=== PATIENT | female | born 1970 | race Caucasian/White ===

== ENCOUNTER → 2018-02-22 | Outpatient (CLI) | payer MEDICAID ==
[~2018-02-22] MED LIST: ACHD5005 PO; CYCL10TA9 PO; HYDR1TAB PO
--- NOTE | 2018-02-22 18:29 | Diagnostic Imaging Report ---
INDICATION: Goiter. TECHNIQUE: Grayscale sonographic images of the thyroid gland. CORRELATION STUDY: None. FINDINGS: RIGHT LOBE: Enlarged at 5.3 x 2.6 x 2.1 cm. LEFT LOBE: Enlarged at 6.7 x 3.4 x 3.6 cm. There is a rather heterogeneous echotexture throughout both lobes of the thyroid gland. Definitive mass lesion not visualized but could go undetected owing to the marked heterogeneity. Perhaps slight increased vascularity is also demonstrated and may be slightly greater involving the left lobe compared to the right lobe. is enlarged and heterogeneous, as well. IMPRESSION: Abnormal appearance about the thyroid gland which is enlarged with rather heterogeneous echotexture. There is perhaps slight increased vascularity. Overall features could be reflective of underlying thyroiditis. Given the overall appearance, correlation with thyroid laboratory assessment and potentially nuclear medicine thyroid scan and uptake would be recommended. (Normal gland size: 4-5 x 2 x 2 cm) Dictated by: Dictated on workstation # [id number]
== END ==
LOC: RAD 10:18
PROVIDERS: ATTEND Nurse Practitioner Family
DX: E04.9 Nontoxic goiter, unspecified (principal)
CPT/HCPCS: 76536

== ENCOUNTER → 2018-09-29 | Outpatient (CLI) | payer MEDICAID ==
--- NOTE | 2018-09-29 21:27 | Diagnostic Imaging Report ---
INDICATION: Left breast lump. COMPARISON: No prior mammograms are available for comparison. EXAMINATION: A BB marker was placed at the area of palpable abnormality in the upper aspect of the left breast. Bilateral 2D and 3D diagnostic mammography was performed. FINDINGS: Both breasts are heterogeneously dense, limiting the sensitivity of mammography. There is a lobulated mass in the upper portion of the left breast at posterior depth near the midline. No microcalcifications are seen. Right breast is unremarkable. Axillae are unremarkable. IMPRESSION: Left breast mass at the area of palpable abnormality. Further evaluation with ultrasound is recommended. ACR BI-RADS Category 0: Incomplete. (Needs additional imaging evaluation). Result letter will be mailed to the patient. Note: At least 10% of breast cancer is not imaged by mammography. Dictated by: Dictated on workstation # [id number]
--- NOTE | 2018-09-29 21:37 | Diagnostic Imaging Report ---
INDICATION: Palpable lump in the left breast. COMPARISON: Correlation is made with diagnostic mammogram performed earlier today. EXAMINATION: Sonographic interrogation of the area of lump in the upper left breast was performed FINDINGS: The sonogram correlates to approximately the 11:30 location, 8 cm from the nipple. There is a macrolobulated hypoechoic solid-appearing mass at this location, measuring 1.4 x 1.0 x 1.5 cm. No significant internal vascularity is seen. No posterior acoustic shadowing or enhancement is detected. No pseudocapsule is identified. No other masses are identified. IMPRESSION: Lobulated hypoechoic solid mass at the 11:30 location of the left breast corresponding to the palpable and mammographic abnormality. While this could potentially represent a fibroadenoma, not all features are classic for a fibroadenoma. Breast neoplasm cannot be excluded. Tissue sampling is recommended. This would be amenable to ultrasound-guided core biopsy. ACR BI-RADS Category 4: Suspicious abnormality. Result letter will be mailed to the patient. Note: At least 10% of breast cancer is not imaged by mammography. Dictated by: Dictated on workstation # [id number]
== END ==
LOC: RAD 14:03
PROVIDERS: ATTEND Nurse Practitioner Primary Care
DX: N63.22 Unspecified lump in the left breast, upper inner quadrant (principal); N95.1 Menopausal and female climacteric states
CPT/HCPCS: 76642; 77066

== ENCOUNTER → 2018-10-10 | Outpatient (CLI) | payer MEDICAID ==
[~2018-10-10] VITALS: Ht 167.6 cm; Wt 63.5 kg
[~2018-10-10] MED LIST changes: +LIDOCAINE 1% INJ 20 ML 20 ML VIAL INJ ONE
--- NOTE | 2018-10-10 14:05 | Diagnostic Imaging Report ---
INDICATION: Left breast mass. Patient presents for ultrasound guided biopsy. PROCEDURE: Patient was brought to the procedure room and placed on the table in the supine position. Ultrasound imaging over the left breast was performed to evaluate appropriate entry site. Left breast was then prepped and draped in usual sterile fashion. Small amount of 1% lidocaine was utilized for local anesthesia. 14-gauge Achieve needle was advanced into the left breast and placed with the tip adjacent to the lobulated mass at 11:30 location, 8 cm from the nipple. Total of three core biopsies were obtained. Marker clip was then deployed. Hemostasis was obtained using manual compression. Patient tolerated the procedure well and was sent for post procedure mammogram in satisfactory condition. IMPRESSION: Successful ultrasound-guided left breast biopsy, as described. Pathology results are currently pending. Dictated by: Dictated on workstation # [id number]
--- NOTE | 2018-10-10 14:19 | Diagnostic Imaging Report ---
INDICATION: Left breast mass. Patient is status post ultrasound-guided core biopsy. TECHNIQUE/FINDINGS: 2D CC and ML mammography of the left breast was performed post ultrasound guided biopsy. A marker clip is located within the lobulated mass in the upper slightly inner left breast. IMPRESSION: The clip appears to be in a satisfactory location within the lobulated mass in the upper left breast. Dictated by: Dictated on workstation # [id number]
== END ==
LOC: RAD 10:14
PROVIDERS: ATTEND Nurse Practitioner Primary Care
DX: C50.912 Malignant neoplasm of unspecified site of left female breast (principal)
CPT/HCPCS: 19083; 88305; 88360

== ENCOUNTER → 2018-10-18 | Outpatient (CLI) | payer MEDICAID ==
[~2018-10-18] MED LIST changes: +BARIUM SUSPENSION 2.1% (VANILLA SILQ) 450 ML PO ONE; +CATHETER FLUSH 10 ML SYR IV PRN; +IOHEXOL 350 MG/ML 100 ML (OMNIPAQUE 350) VIAL IV ONE; -LIDOCAINE 1% INJ 20 ML 20 ML VIAL INJ ONE; +NS 100 ML (IVPB) BAG IV ONE; +RECEIVED CONTRAST (Hold Metformin) IV SCH
--- NOTE | 2018-10-18 16:22 | Diagnostic Imaging Report ---
PROCEDURE: CT chest with contrast, CT abdomen with and without contrast. TECHNIQUE: Precontrast acquisitions were acquired through the abdomen. Multiple contiguous axial images were obtained through the chest and abdomen after administration of intravenous contrast. INDICATION: Personal history of breast cancer; infiltrating ductal carcinoma of breast. FINDINGS: CT CHEST: There is asymmetric enlargement of the left lobe of the thyroid gland which may be due to goiter. There is an approximately 1.6 x 1.2 cm solid nodule in the medial left breast. This is compatible with breast neoplasm. Subcentimeter lymph nodes are seen in both axilla without significant asymmetry. There are calcifications within the right lung and hilum likely due to previous granulomatous exposure. No noncalcified pulmonary mass or thoracic adenopathy is identified. There is no significant pleural or pericardial fluid. IMPRESSION: 1.6 x 1.2 cm solid mass in the upper inner left breast is compatible with breast neoplasm. There is granulomatous residual in the thorax without evidence of metastatic adenopathy or lung mass. There is asymmetric enlargement of left thyroid gland which may be due to goiter. CT ABDOMEN: There is low-density in the liver indicating steatosis. Gallbladder surgically absent without evidence of biliary ductal dilatation. There is no evidence of pancreatic, adrenal glands or splenic abnormality and the kidneys are unremarkable. There are occasional mildly prominent central retroperitoneal lymph nodes with the largest on the left just above the aortic bifurcation measuring 0.8 cm long axis. IMPRESSION: Hepatic steatosis without acute abnormality or evidence of metastatic disease in the abdomen. Dictated by: Dictated on workstation # [id number]
== END ==
LOC: RAD 14:02
PROVIDERS: ATTEND Internal Medicine Hematology & Oncology
DX: C50.212 Malignant neoplasm of upper-inner quadrant of left female breast (principal); J98.4 Other disorders of lung; E04.9 Nontoxic goiter, unspecified; K76.0 Fatty (change of) liver, not elsewhere classified; Z90.49 Acquired absence of other specified parts of digestive tract
CPT/HCPCS: 71260; 74170

== ENCOUNTER → 2018-10-25 | Outpatient (CLI) | payer MEDICAID ==
[~2018-10-25] MED LIST changes: -ACHD5005 PO; -BARIUM SUSPENSION 2.1% (VANILLA SILQ) 450 ML PO ONE; -CYCL10TA9 PO; +HEParin (CENTRAL IV FLUSH) 500 UNIT/5 ML SYR ONE; -HYDR1TAB PO; -IOHEXOL 350 MG/ML 100 ML (OMNIPAQUE 350) VIAL IV ONE; -NS 100 ML (IVPB) BAG IV ONE; -RECEIVED CONTRAST (Hold Metformin) IV SCH
--- NOTE | 2018-10-25 15:29 | Diagnostic Imaging Report ---
INDICATION: Chemotherapy management. TECHNIQUE: The patient was administered 30.7 mCi of technetium 99M pertechnetate labeled to red blood cells and gated imaging over the chest was performed utilizing first-pass technique. The left ventricular ejection fraction was calculated to be 63%. IMPRESSION: Normal left ventricular ejection fraction of 63%. Dictated by: Dictated on workstation # [id number]
== END ==
LOC: CARD 13:45
PROVIDERS: ATTEND Internal Medicine Hematology & Oncology
DX: Z51.81 Encounter for therapeutic drug level monitoring (principal); C50.212 Malignant neoplasm of upper-inner quadrant of left female breast; Z79.899 Other long term (current) drug therapy
CPT/HCPCS: 78472

== ENCOUNTER 2018-11-03 14:39 | Outpatient (CLI) | payer MEDICAID ==
[~2018-11-03] VITALS: Ht 167.6 cm; Wt 63.5 kg
[~2018-11-03 14:39] MED LIST changes: +ACHD5005 PO; +ATEN25TA PO; -CATHETER FLUSH 10 ML SYR IV PRN; +CYCL10TA9 PO; -HEParin (CENTRAL IV FLUSH) 500 UNIT/5 ML SYR ONE; +HYDR1TAB PO; +METH5TAB5 PO
== END 2018-11-03 14:46 ==
LOC: PREOP 14:39
PROVIDERS: ATTEND Surgery
DX: Z01.818 Encounter for other preprocedural examination (principal)

== ENCOUNTER 2018-11-10 05:52 | Day surgery (SDC) | payer MEDICAID ==
[~2018-11-10] VITALS: Ht 167.6 cm; Wt 63.5 kg
--- OUTSIDE RECORDS SUMMARY | 2018-11-10 05:54 | XMS REPORT ---
Author Author TRAN NOGUEIRA [facility] Address [address] [place] [address] Care Team Providers Care Molder Labels Name Role Phone TRAN NOGUEIRA Unavailable PROBLEMS Type Condition ICD9-CM Code BJP73-BN Code Onset Dates Condition Status SNOMED Code Problem Thrombocytopenia D69.6 Active 290043026 Problem Goiter E04.9 Active 7847145 Problem Hyperthyroidism E05.90 Active 29372406 ALLERGIES No Information ENCOUNTERS Encounter Location Date Diagnosis [place] [address] [address] Jun, Thrombocytopenia D69.6 [facility] [address] [address] Jun, Thrombocytopenia D69.6 [facility] [address] [id number] May, Dental examination Z01.20 [facility] [address] [id number] Apr, Dental examination Z01.20 and Dental caries K02.9 [place] [address] [address] Mar, Thrombocytopenia D69.6 [facility] [address] [address] Mar, Hyperthyroidism E05.90 ; Goiter E04.9 ; Screening for diabetes mellitus Z13.1 and Screening for lipoid disorders Z13.220 [place] [address] [address] Feb, [place] [address] [address] Feb, [facility] [address] [address] Feb, 2018 Subacute maxillary sinusitis J01.00 ; Seasonal allergic rhinitis, unspecified trigger J30.2 ; Post-nasal drainage R09.82 and Goiter E04.9 [facility] [address] [place] [id number] [address] 2015 No diagnosis on [place] I V71.09 [facility] [address] [place] [id number] [place] [address] Dec, [place] [address] [place] [id number] [place] [address] Dec, [facility] [address] [place] [address] [id number] [place] [address] Sep, [place] [address] [place] [id number] [place] [address]- 4[address] Sep, [facility] [address] [place] [id number] [place] [address]- [address] Mar, [place] [address] [place] [id number] [place] [address]- 555[address] Mar, IMMUNIZATIONS No Known Immunizations SOCIAL HISTORY Never Assessed REASON FOR VISIT Deferred lab PLAN OF CARE VITAL SIGNS MEDICATIONS Unknown Medications RESULTS No Results PROCEDURES No Known procedures INSTRUCTIONS MEDICATIONS ADMINISTERED No Known Medications MEDICAL (GENERAL) HISTORY Type Description Date Medical History Left eye trauma-age 14 Surgical History gallbladder removal 1999 Surgical History metal plates/screws in left ankle 2014 Hospitalization History gallbladder removal 1999
--- OUTSIDE RECORDS SUMMARY | 2018-11-10 05:54 | XMS REPORT ---
Author Author NICOLEKYAW KING [facility] Address Unknown Care Team Providers Care Dip Brazier Name Role Phone KYAW VÁZQUEZ Unavailable PROBLEMS Type Condition ICD9-CM Code BWM40-DR Code Onset Dates Condition Status SNOMED Code Problem Hyperthyroidism E05.90 Active 16396741 Problem Thrombocytopenia D69.6 Active 693783932 Problem Goiter E04.9 Active 2445718 Problem Pain in joint, ankle and foot 719.47 Active 992195204 Problem Diarrhea 787.91 Active 98096382 Problem Scabies 133.0 Active 068374292 Problem Acute sinusitis, unspecified 461.9 Active 15268363 ALLERGIES No Information ENCOUNTERS Encounter Location Date Diagnosis [facility] [address] [place] [id number] [place] [id number] May, Dental examination Z01.20 [facility] [address] [id number] Apr, Dental examination Z01.20 and Dental caries K02.9 [facility] [address] [address] Mar, Thrombocytopenia D69.6 [facility] [address] [place] [id number] [place] [address] Mar, Hyperthyroidism E05.90 ; Goiter E04.9 ; Screening for diabetes mellitus Z13.1 and Screening for lipoid disorders Z13.220 [facility] [address] [address] Feb, [facility] [address] [address] Feb, [facility] [address] [address] Feb, Subacute maxillary sinusitis J01.00 ; Seasonal allergic rhinitis, unspecified trigger J30.2 ; Post-nasal drainage R09.82 and Goiter E04.9 [place] [address] [place] [id number] [place] [address] 2015 No diagnosis on [place] I V71.09 [place] [address] [place] [id number] [place] [address] 14 Dec, 2014 [place] [address] [place] [id number] [place] [address]- [address] Dec, [place] [address] [place] [id number] [place] [address]- [address] Sep, [place] [address] [place] [id number] [place] [address]- 1008 Sep, [place] [address] [place] [id number] [place] [address]- 9591 Mar, [place] [address] [place] [id number] [place] [address]- 29[address] Mar, IMMUNIZATIONS No Known Immunizations SOCIAL HISTORY Never Assessed REASON FOR VISIT [place] PLAN OF CARE VITAL SIGNS MEDICATIONS Unknown Medications RESULTS No Results PROCEDURES Procedure Date Ordered Result Body Site Billing Notes on claim May 31, 2018 INSTRUCTIONS MEDICATIONS ADMINISTERED No Known Medications MEDICAL (GENERAL) HISTORY Type Description Date Medical History Left eye trauma-age 14 Surgical History gallbladder removal 1999 Surgical History metal plates/screws in left ankle 2014 Hospitalization History gallbladder removal 1999
--- OUTSIDE RECORDS SUMMARY | 2018-11-10 05:54 | XMS REPORT ---
Author Author NICOLEKYAW KING [facility] Address Unknown Care Team Providers Care Medical Billing Clerk Name Role Phone KYAW VÁZQUEZ Unavailable PROBLEMS Type Condition ICD9-CM Code CJD35-AS Code Onset Dates Condition Status SNOMED Code Problem Hyperthyroidism E05.90 Active 34919376 Problem Thrombocytopenia D69.6 Active 196883322 Problem Goiter E04.9 Active 1526592 Problem Pain in joint, ankle and foot 719.47 Active 103867993 Problem Diarrhea 787.91 Active 25675790 Problem Scabies 133.0 Active 946408016 Problem Acute sinusitis, unspecified 461.9 Active 00666021 ALLERGIES No Known Allergies ENCOUNTERS Encounter Location Date Diagnosis [facility] [address] [place] [id number] [place] [id number] May, Dental examination Z01.20 [facility] [address] [id number] Apr, Dental examination Z01.20 and Dental caries K02.9 [facility] [place] [address] [place] [address] [id number] [place] [address] Mar, Thrombocytopenia D69.6 [facility] [place] [address] [place] [id number] [place] [address]- [address] Mar, Hyperthyroidism E05.90 ; Goiter E04.9 ; Screening for diabetes mellitus Z13.1 and Screening for lipoid disorders Z13.220 [facility] [place] [address] [address] Feb, [facility] [place] [address] [address] Feb, [facility] [place] [address] [address] Feb, Subacute maxillary sinusitis J01.00 ; Seasonal allergic rhinitis, unspecified trigger J30.2 ; Post-nasal drainage R09.82 and Goiter E04.9 [place] [address] [place] [address] [id number] [place] [address] 2015 No diagnosis on [place] I V71.09 [place] [address], [place] [address] 14 Dec, 2014 [place] [address] [place] [id number] [place] [address]- [address]651 Dec, [place] [address] [place] [id number] [place] [address]- 35[address] Sep, [place] [address] [place] [id number] [place] [address]- [address] Sep, [place] [address] [place] [id number] [place] [address] 16[address]- 1449 Mar, [place] [address] [place] [id number] [place] [address]- 2[address] Mar, IMMUNIZATIONS No Known Immunizations SOCIAL HISTORY Never Assessed REASON FOR VISIT SHERYL PLAN OF CARE Activity Details Follow Up prn Reason:asha/hygiene VITAL SIGNS Height 66 in 2018-05-06 Blood pressure systolic 124 mmHg 2018-05-06 Blood pressure diastolic 87 mmHg 2018-05-06 MEDICATIONS Medication Instructions Dosage Frequency Start Date End Date Duration Status Flonase 50 MCG/ACT Nasally twice a day 1 spray in each nostril 12h Feb, 07 days Not-Taking Zyrtec Allergy 10 mg Orally Once a day 1 capsule 24h 14 Feb, 2018 May, 30 day(s) Not-Taking RESULTS No Results PROCEDURES Procedure Date Ordered Result Body Site LTD ORAL EVALUATION - PROBLEM FOCUS May 06, 2018 INTRAORL-PERIAPICAL 1 FILM 02360 May 06, 2018 EXTRAC ERUPTED TOOTH/EXPOSED ROOT May 06, 2018 BITEWING - SINGLE FILM May 06, 2018 INSTRUCTIONS MEDICATIONS ADMINISTERED No Known Medications MEDICAL (GENERAL) HISTORY Type Description Date Medical History Left eye trauma-age 14 Surgical History gallbladder removal 1999 Surgical History metal plates/screws in left ankle 2014 Hospitalization History gallbladder removal 1999
--- OUTSIDE RECORDS SUMMARY | 2018-11-10 05:54 | XMS REPORT ---
Author Author TRAN NOGUEIRA [facility] Address [address] [place] [address] Care Team Providers Care Inclinometer Tester Name Role Phone TRAN NOGUEIRA Unavailable PROBLEMS Type Condition ICD9-CM Code SWO05-QA Code Onset Dates Condition Status SNOMED Code Problem Hyperthyroidism E05.90 Active 01848202 Problem Thrombocytopenia D69.6 Active 478540378 Problem Goiter E04.9 Active 0331621 Problem Pain in joint, ankle and foot 719.47 Active 194014910 Problem Diarrhea 787.91 Active 63122412 Problem Scabies 133.0 Active 391658158 Problem Acute sinusitis, unspecified 461.9 Active 27523127 ALLERGIES No Information ENCOUNTERS Encounter Location Date Diagnosis [facility] [address] [id number] May, [facility] [address] [id number] Apr, Dental examination Z01.20 and Dental caries K02.9 [place] [address] [address] Mar, Thrombocytopenia D69.6 [place] [address] [address]- [address] Mar, Hyperthyroidism E05.90 ; Goiter E04.9 ; Screening for diabetes mellitus Z13.1 and Screening for lipoid disorders Z13.220 [place] [address] [address]- [address] Feb, [place] [address] [address] Feb, [place] [address] [address] Feb, Subacute maxillary sinusitis J01.00 ; Seasonal allergic rhinitis, unspecified trigger J30.2 ; Post-nasal drainage R09.82 and Goiter E04.9 [place] [address] [place] [address]- [address] 2015 No diagnosis on [place] I V71.09 [place] [address] [place] [id number] [place] [address]- [address] Dec, [place] [address] [place] [id number] [place] [address] 82054- 2317 Dec, [place] [address] [place] [id number] [place] [address]- [address] Sep, [place] [address] [place] [id number] [place] [address]07- 5862 Sep, [place] [address] [place] [id number] [place] [address]83- 70[address] Mar, [place] [address] [place] [id number] [place] [address] 44765- 0079 Mar, IMMUNIZATIONS No Known Immunizations SOCIAL HISTORY Never Assessed REASON FOR VISIT lab order PLAN OF CARE VITAL SIGNS MEDICATIONS Unknown Medications RESULTS No Results PROCEDURES No Known procedures INSTRUCTIONS MEDICATIONS ADMINISTERED No Known Medications MEDICAL (GENERAL) HISTORY Type Description Date Medical History Left eye trauma-age 14 Surgical History gallbladder removal 1999 Surgical History metal plates/screws in left ankle 2014 Hospitalization History gallbladder removal 1999
--- OUTSIDE RECORDS SUMMARY | 2018-11-10 05:55 | XMS REPORT ---
Author Author TRAN NOGUEIRA [facility] Address [address] [place] [address] Care Team Providers Care Legal Job Titles Name Role Phone TRAN NOGUEIRA Unavailable PROBLEMS Type Condition ICD9-CM Code YNG84-DQ Code Onset Dates Condition Status SNOMED Code Problem Hyperthyroidism E05.90 Active 70790676 Problem Thrombocytopenia D69.6 Active 296737271 Problem Goiter E04.9 Active 0946033 Problem Pain in joint, ankle and foot 719.47 Active 823144337 Problem Diarrhea 787.91 Active 38038592 Problem Scabies 133.0 Active 499963948 Problem Acute sinusitis, unspecified 461.9 Active 39513140 ALLERGIES No Information ENCOUNTERS Encounter Location Date Diagnosis [place] [address] [place] [id number] [place] [address]- [address] Mar, Thrombocytopenia D69.6 [place] [address] [address] Mar, Hyperthyroidism E05.90 ; Goiter E04.9 ; Screening for diabetes mellitus Z13.1 and Screening for lipoid disorders Z13.220 [place] [address] [place] [id number] [place] [address]- [address] Feb, [place] [address] [address]- [address] Feb, [place] [address] [address]- [address] Feb, Subacute maxillary sinusitis J01.00 ; Seasonal allergic rhinitis, unspecified trigger J30.2 ; Post-nasal drainage R09.82 and Goiter E04.9 [place] [address] [address]- [address] Feb, No diagnosis on [place] I V71.09 [facility] [address] [address] Dec, [facility] [address] [address] Dec, [facility] [address] [address] Sep, [facility] [address] [address] Sep, [facility] [address] [place] [id number] [address] Mar, [facility] [address] [address] Mar, IMMUNIZATIONS No Known Immunizations SOCIAL HISTORY Never Assessed REASON FOR VISIT Returned call PLAN OF CARE VITAL SIGNS MEDICATIONS Unknown Medications RESULTS No Results PROCEDURES No Known procedures INSTRUCTIONS MEDICATIONS ADMINISTERED No Known Medications MEDICAL (GENERAL) HISTORY Type Description Date Medical History Left eye trauma-age 14 Surgical History gallbladder removal 1999 Hospitalization History gallbladder removal 1999
--- OUTSIDE RECORDS SUMMARY | 2018-11-10 05:55 | XMS REPORT | Continuity of Care Document ---
Author Author [facility] Address Unknown Phone Unavailable Allergies Active Description Code Type Severity Reaction Onset Reported/Identified Relationship to Patient Clinical Status Yes No Known Drug Allergies [id number] Drug Allergy Unknown N/A 03/09/2011 Yes No Known Allergies NKA Miscellaneous Allergy Unknown N/A 10/17/2013 Medications There is no data. Problems Date Dx Coded Attending Type Code Diagnosis Diagnosed By 03/17/2012 LÓPEZ NUNEZ DO 133.0 SCABIES 03/17/2012 LÓPEZ NUNEZ DO 719.47 PAIN IN JOINT INVOLVING ANKLE AND FOOT 09/13/2012 LÓPEZ NUNEZ DO 461.9 SINUSITIS ACUTE 09/13/2012 LÓPEZ NUNEZ DO 787.91 DIARRHEA 02/23/2018 DICK MUSA SPOOLING MACHINE OPERATOR Ot E04.9 NONTOXIC GOITER, UNSPECIFIED 03/14/2018 DICK MUSA Ot E04.9 NONTOXIC GOITER, UNSPECIFIED 09/29/2018 TRAN NOGUEIRA APRN Ot N63.22 UNSPECIFIED LUMP IN THE LEFT BREAST, UPP 09/29/2018 TRAN NOGUEIRA APRN Ot N95.1 MENOPAUSAL AND FEMALE CLIMACTERIC STATES 10/14/2018 TRAN NOGUEIRA APRN Ot N63.22 UNSPECIFIED LUMP IN THE LEFT BREAST, UPP 10/14/2018 TRAN NOGUEIRA APRN Ot N95.1 MENOPAUSAL AND FEMALE CLIMACTERIC STATES 10/14/2018 DICK MUSA SPOOLING MACHINE OPERATOR Ot E04.9 NONTOXIC GOITER, UNSPECIFIED 10/14/2018 TRAN NOGUEIRA APRN Ot N63.22 UNSPECIFIED LUMP IN THE LEFT BREAST, UPP 10/14/2018 TRAN NOGUEIRA APRN Ot N95.1 MENOPAUSAL AND FEMALE CLIMACTERIC STATES 10/18/2018 RUSTY BRANNON MD Ot 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 10/18/2018 RUSTY BRANNON MD Ot E04.9 NONTOXIC GOITER, UNSPECIFIED 10/18/2018 RUSTY BRANNON MD Ot J98.4 OTHER DISORDERS OF LUNG 10/18/2018 RUSTY BRANNON MD Ot K76.0 FATTY (CHANGE OF) LIVER, NOT ELSEWHERE C 10/18/2018 RUSTY BRANNON MD Ot Z90.49 ACQUIRED ABSENCE OF OTHER SPECIFIED PART 10/20/2018 TRAN NOGUEIRA APRN Ot C50.912 MALIGNANT NEOPLASM OF UNSPECIFIED SITE O 10/20/2018 MAURICIO RANKIN DO Ot Z01.818 ENCOUNTER FOR OTHER PREPROCEDURAL EXAMIN 10/26/2018 RUSTY BRANNON MD Ot 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 10/26/2018 RUSTY BRANNON MD Ot Z51.81 ENCOUNTER FOR THERAPEUTIC DRUG LEVEL MON 10/26/2018 RUSTY BRANNON MD Ot Z79.899 OTHER DATA MANAGEMENT (CURRENT) DRUG THERAPY 10/28/2018 TRAN NOGUEIRA APRN Ot C50.912 MALIGNANT NEOPLASM OF UNSPECIFIED SITE O 11/03/2018 RUSTY BRANNON MD Ot 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 Results Test Result Range TSH w/ FREE T4 - 02/17/18 12:28 TSH <0.01 mIU/L NRG T4, FREE 5.4 ng/dL 0.8-1.8 CBC - 03/14/18 08:44 WHITE BLOOD CELL COUNT 5.1 Thousand/uL 3.8-10.8 RED BLOOD CELL COUNT 4.65 Million/uL 3.80-5.10 HEMOGLOBIN 12.7 g/dL 11.7-15.5 HEMATOCRIT 39.0 % 35.0-45.0 MCV 83.9 fL 80.0-100.0 MCH 27.3 pg 27.0-33.0 MCHC 32.6 g/dL 32.0-36.0 RDW 12.8 % 11.0-15.0 PLATELET COUNT 118 Thousand/uL 140-400 MPV 12.4 fL 7.5-12.5 ABSOLUTE NEUTROPHILS 1856 cells/uL 7547-8464 ABSOLUTE LYMPHOCYTES 2545 cells/uL 850-3900 ABSOLUTE MONOCYTES 587 cells/uL 200-950 ABSOLUTE EOSINOPHILS 92 cells/uL 15-500 ABSOLUTE BASOPHILS 20 cells/uL 0-200 NEUTROPHILS 36.4 % NRG LYMPHOCYTES 49.9 % NRG MONOCYTES 11.5 % NRG EOSINOPHILS 1.8 % NRG BASOPHILS 0.4 % NRG CBC - 06/21/18 15:50 WHITE BLOOD CELL COUNT 5.9 Thousand/uL 3.8-10.8 RED BLOOD CELL COUNT 4.63 Million/uL 3.80-5.10 HEMOGLOBIN 12.9 g/dL 11.7-15.5 HEMATOCRIT 38.0 % 35.0-45.0 MCV 82.1 fL 80.0-100.0 MCH 27.9 pg 27.0-33.0 MCHC 33.9 g/dL 32.0-36.0 RDW 12.4 % 11.0-15.0 PLATELET COUNT 119 Thousand/uL 140-400 MPV 12.8 fL 7.5-12.5 ABSOLUTE NEUTROPHILS 2472 cells/uL 2811-8398 ABSOLUTE LYMPHOCYTES 2803 cells/uL 850-3900 ABSOLUTE MONOCYTES 537 cells/uL 200-950 ABSOLUTE EOSINOPHILS 71 cells/uL 15-500 ABSOLUTE BASOPHILS 18 cells/uL 0-200 NEUTROPHILS 41.9 % NRG LYMPHOCYTES 47.5 % NRG MONOCYTES 9.1 % NRG EOSINOPHILS 1.2 % NRG BASOPHILS 0.3 % NRG Encounters ACCT No. Visit Date/Time Discharge Status Pt. Type Provider Facility Loc./Unit Complaint [id number] 09/13/2012 11:04:00 09/13/2012 23:59:59 CLS Outpatient LÓPEZ NUNEZ DO [id number] 11/03/2018 14:39:00 11/03/2018 14:46:00 DIS Outpatient MAURICIO RANKIN DO [facility] PREOP PORT PLACEMENT RIGHT SIDE [id number] 10/25/2018 13:45:00 10/25/2018 23:59:59 CLS Outpatient RUSTY BRANNON MD [facility] CARD CHEMOTHERAPY MANAGEMENT [id number] 10/21/2018 08:30:00 10/21/2018 23:59:59 CLS Preadmit [facility] [id number] 10/18/2018 14:02:00 10/18/2018 23:59:59 CLS Outpatient RUSTY BRANNON MD [facility] RAD INFILTRATING DUCTAL CARCINOMA OF BREAST [id number] 10/14/2018 10:00:00 10/14/2018 23:59:59 CLS Outpatient RUSTY BRANNON MD [facility] ONC [id number] 10/10/2018 10:14:00 10/10/2018 23:59:59 CLS Outpatient TRAN NOGUEIRA APRN [facility] RAD LEFT BREAST LUMP [id number] 09/29/2018 14:03:00 09/29/2018 23:59:59 CLS Outpatient TRAN NOGUEIRA APRN [facility] RAD LEFT BREAST LUMP [id number] 02/22/2018 10:18:00 02/22/2018 23:59:59 CLS Outpatient DICK MUSA SPOOLING MACHINE OPERATOR [facility] RAD GOITER [id number] 10/19/2013 12:18:00 10/19/2013 16:55:00 DIS Outpatient Marvel GAXIOLA, [facility] [id number] 10/18/2013 13:00:00 10/18/2013 23:59:59 CLS Outpatient Katie Lowe PA-C [facility] MATEO.ORPaul [id number] 10/18/2013 14:23:00 10/18/2013 23:59:00 DIS Outpatient Marvel GAXIOLA, [facility] [id number] 10/17/2013 15:15:00 10/17/2013 17:27:00 DIS Emergency Atul GAXIOLA, Chema Quevedo [facility] ER.FASTTRA [id number] 11/07/2018 15:00:00 ACT Outpatient TRAN NOGUEIRA [facility] [place] [id number] 06/21/2018 15:40:00 Document Registration [id number] 03/14/2018 08:00:00 Document Registration [id number] 2018 11:40:00 Document Registration
--- OUTSIDE RECORDS SUMMARY | 2018-11-10 05:55 | XMS REPORT ---
Author Author TRAN NOGUEIRA [facility] Address [address] [place] [address] Care Team Providers Care Brim Presser Name Role Phone TRAN NOGUEIRA Unavailable PROBLEMS Type Condition ICD9-CM Code EQX11-IQ Code Onset Dates Condition Status SNOMED Code Problem Hyperthyroidism E05.90 Active 75854877 Problem Thrombocytopenia D69.6 Active 814485646 Problem Goiter E04.9 Active 0589675 Problem Pain in joint, ankle and foot 719.47 Active 552841281 Problem Diarrhea 787.91 Active 49580285 Problem Scabies 133.0 Active 785535587 Problem Acute sinusitis, unspecified 461.9 Active 75069647 ALLERGIES No Known Allergies ENCOUNTERS Encounter Location Date Diagnosis [facility] [address] [id number] May, [facility] [address] [id number] Apr, Dental examination Z01.20 and Dental caries K02.9 [place] [address] [address] Mar, Thrombocytopenia D69.6 [place] [id number] [address] Mar, Hyperthyroidism E05.90 ; Goiter E04.9 ; Screening for diabetes mellitus Z13.1 and Screening for lipoid disorders Z13.220 [place] [address] [address] Feb, [place] [address] [address] Feb, [facility] [address] [address] 14 Feb, 2018 Subacute maxillary sinusitis J01.00 ; Seasonal allergic rhinitis, unspecified trigger J30.2 ; Post-nasal drainage R09.82 and Goiter E04.9 [place] [address], [place] [address] 2015 No diagnosis on [place] I V71.09 [place] [address] [place] [id number] [place] [address] 14 Dec, 2014 [place] [address] [place] [id number] [place] [address] Dec, [place] [address] [place] [id number] [place] [address] Sep, [place] [address] [place] [id number] [place] [address] Sep, [place] [address] [place] [id number] [place] [address] Mar, [place] [address], [place] [address] Mar, IMMUNIZATIONS No Known Immunizations SOCIAL HISTORY Never Assessed REASON FOR VISIT Establish Care -- kandace romero PLAN OF CARE Activity Details Follow Up 1-2 mos Reason:WWE VITAL SIGNS Height 66 in 2018-03-14 Weight 130.0 lbs 2018-03-14 Temperature 98.1 degrees Fahrenheit 2018-03-14 Heart Rate 78 bpm 2018-03-14 Respiratory Rate 18 2018-03-14 BMI 20.98 kg/m2 2018-03-14 Blood pressure systolic 106 mmHg 2018-03-14 Blood pressure diastolic 68 mmHg 2018-03-14 MEDICATIONS Medication Instructions Dosage Frequency Start Date End Date Duration Status Flonase 50 MCG/ACT Nasally twice a day 1 spray in each nostril 12h Feb, 07 days Active Zyrtec Allergy 10 mg Orally Once a day 1 capsule 24h Feb, May, 30 day(s) Active RESULTS No Results PROCEDURES Procedure Date Ordered Result Body Site LAB NOT BILLED BY [facility] March 14, 2018 INSTRUCTIONS MEDICATIONS ADMINISTERED No Known Medications MEDICAL (GENERAL) HISTORY Type Description Date Medical History Left eye trauma-age 14 Surgical History gallbladder removal 1999 Surgical History metal plates/screws in left ankle 2014 Hospitalization History gallbladder removal 1999
--- OUTSIDE RECORDS SUMMARY | 2018-11-10 05:55 | XMS REPORT ---
Author Author TRAN NOGUEIRA [facility] Address [address] [place] [address] Care Team Providers Care Sap Abap Developer Name Role Phone TRAN NOGUEIRA Unavailable PROBLEMS Type Condition ICD9-CM Code [id number] Code Onset Dates Condition Status SNOMED Code Problem Hyperthyroidism E05.90 Active 29811733 Problem Thrombocytopenia D69.6 Active 782956507 Problem Goiter E04.9 Active 5248360 Problem Pain in joint, ankle and foot 719.47 Active 084984741 Problem Diarrhea 787.91 Active 69927354 Problem Scabies 133.0 Active 143885095 Problem Acute sinusitis, unspecified 461.9 Active 10557103 ALLERGIES No Information ENCOUNTERS Encounter Location Date Diagnosis [facility] [address] [place] [id number] [place] [id number] May, [place] [address] [address] Mar, Thrombocytopenia D69.6 [facility] [address] [place] [id number] [place] [address] Mar, Hyperthyroidism E05.90 ; Goiter E04.9 ; Screening for diabetes mellitus Z13.1 and Screening for lipoid disorders Z13.220 [facility] [address] [place] [id number] [place] [address] Feb, [place] [address] [address] Feb, [facility] [address] [address] Feb, Subacute maxillary sinusitis J01.00 ; Seasonal allergic rhinitis, unspecified trigger J30.2 ; Post-nasal drainage R09.82 and Goiter E04.9 [facility] [address] [place] [id number] [address] 2015 No diagnosis on [place] I V71.09 [facility] [address] [address] 14 Dec, 2014 [facility] [address] [address] Dec, [facility] [address] [address] Sep, [facility] [address] [address] Sep, [facility] [address] [address] Mar, [facility] [address] [address] Mar, IMMUNIZATIONS No Known Immunizations SOCIAL HISTORY Never Assessed REASON FOR VISIT Requests return call PLAN OF CARE VITAL SIGNS MEDICATIONS Unknown Medications RESULTS No Results PROCEDURES No Known procedures INSTRUCTIONS MEDICATIONS ADMINISTERED No Known Medications MEDICAL (GENERAL) HISTORY Type Description Date Medical History Left eye trauma-age 14 Surgical History gallbladder removal 1999 Hospitalization History gallbladder removal 1999
--- OUTSIDE RECORDS SUMMARY | 2018-11-10 05:55 | XMS REPORT ---
Author Author ANGELITA ELISE [facility] Address [address] [place] [address] Care Team Providers Care Watch Dial Stoner Name Role Phone ANGELITA ELISE Unavailable PROBLEMS Type Condition ICD9-CM Code YTA31-RI Code Onset Dates Condition Status SNOMED Code Problem Hyperthyroidism E05.90 Active 32823152 Problem Thrombocytopenia D69.6 Active 901844104 Problem Goiter E04.9 Active 8792830 Problem Pain in joint, ankle and foot 719.47 Active 595164914 Problem Diarrhea 787.91 Active 06220176 Problem Scabies 133.0 Active 350977404 Problem Acute sinusitis, unspecified 461.9 Active 98421903 ALLERGIES No Known Allergies ENCOUNTERS Encounter Location Date Diagnosis [place] [address] [place] [id number] [place] [address] Mar, Thrombocytopenia D69.[address] [address] Mar, Hyperthyroidism E05.90 ; Goiter E04.9 ; Screening for diabetes mellitus Z13.1 and Screening for lipoid disorders Z13.220 [place] [address] [place] [id number] [place] [address] Feb, [place] [address] [place] [id number] [place] [address] Feb, [place] [address] [address] Feb, Subacute maxillary sinusitis J01.00 ; Seasonal allergic rhinitis, unspecified trigger J30.2 ; Post-nasal drainage R09.82 and Goiter E04.9 [place] [address] [address] Feb, No diagnosis on [place] I V71.09 [facility] [address] [place] [id number] [address] Dec, [facility] [address] [place] [id number], [place] [address] Dec, [facility] [address], [place] [address] Sep, [facility] [address], [place] [address] Sep, [facility] [address] [facility] [id number] [address] Mar, [facility] [address], [place] [address] Mar, IMMUNIZATIONS No Known Immunizations SOCIAL HISTORY Never Assessed REASON FOR VISIT cough and runny X2 weeks-ORA Bull PLAN OF CARE Activity Details Follow Up tomorrow to establish care Reason: VITAL SIGNS Height 66 in 2018 Weight 128.8 lbs 2018 Temperature 98.1 degrees Fahrenheit 2018 Heart Rate 88 bpm 2018 Respiratory Rate 20 2018 BMI 20.79 kg/m2 2018 Blood pressure systolic 96 mmHg 2018 Blood pressure diastolic 52 mmHg 2018 MEDICATIONS Medication Instructions Dosage Frequency Start Date End Date Duration Status Zyrtec Allergy 10 mg Orally Once a day 1 capsule 24h Feb, May, 30 day(s) Active Phenergan 25 mg 1 tablet by Oral route every 6 hours Sep, Not-Taking Zithromax Z-Luis Enrique 250 MG Orally Once a day 2 tablets on the first day, then 1 tablet daily for 4 days 24h Feb, Feb, 5 day(s) Active Permethrin 5 % 1 Application by Topical route 1 time per dayapply from neck to toes. Avoid mucous membranes. Shower off in 10 hours Mar, Not-Taking Flonase 50 MCG/ACT Nasally twice a day 1 spray in each nostril 12h Feb, 07 days Active Zithromax Z-Luis Enrique 250 mg 2 tablet by Oral route 1 time per dayon day 1 then take 1 tab daily on days 2-5 Sep, Not-Taking RESULTS No Results PROCEDURES Procedure Date Ordered Result [facility]* 2018 INSTRUCTIONS MEDICATIONS ADMINISTERED No Known Medications MEDICAL (GENERAL) HISTORY Type Description Date Medical History Left eye trauma-age 14 Surgical History gallbladder removal 1999 Hospitalization History gallbladder removal 1999
[2018-11-10] MEDS ORDERED: ceFAZolin 2 GM IV Premixed 50 ML ONE (06:40)
--- NOTE | 2018-11-10 06:45 | Progress Note-Pre Operative ---
Pre-Operative Progress Note H&P Reviewed The H&P was reviewed, patient examined and no changes noted. Date Seen by Provider: Nov 10, 2018 Time Seen by Provider: 06:45 Date H&P Reviewed: Nov 10, 2018 Time H&P Reviewed: 06:45 Pre-Operative Diagnosis: breast cancer MAURICOI RANKIN DO Nov 10, 2018 06:45
[2018-11-10] MEDS ORDERED: LACTATED RINGERS 1,000 ML IV PRN (06:51)
[2018-11-10 06:53] VITALS: BP 117/83
[2018-11-10] MEDS ORDERED: ceFAZolin 2 GM IV Premixed 50 ML IV ONE (07:00)
[2018-11-10] MEDS ORDERED: proPOfol 200 MG/20 ML (DIPRIVAN) VIAL IV ONE (08:30)
[2018-11-10] MEDS ORDERED: LIDOCAINE PF 2% 5 ML (XYLOCAINE) VIAL ONE (08:30)
[2018-11-10] MEDS ORDERED: fentaNYL INJECTION 100 MCG/2 ML AMP ONE (08:30)
[2018-11-10] MEDS ORDERED: MIDAZOLAM 2 MG/2 ML (VERSED) VIAL ONE ×2 (08:31→09:11)
[2018-11-10] MEDS ORDERED: BUP/EPI 0.5% 1:200,000 (SENSORCAINE) 30 ML VIAL ONE (08:57)
[2018-11-10] MEDS ORDERED: 0.9% SODIUM CHLORIDE PF INJ 20 ML VIAL ONE (08:57)
[2018-11-10] MEDS ORDERED: HEParin (CENTRAL IV FLUSH) 500 UNIT/5 ML SYR ONE (08:57)
[2018-11-10] MEDS ORDERED: LIDOCAINE 1% INJ 20 ML 20 ML VIAL ONE (08:58)
[2018-11-10] MEDS ORDERED: ONDANSETRON 4 MG/2 ML (SDV) Z0FRAN ONE (09:28)
--- NOTE | 2018-11-10 09:58 | Progress Note-Post Operative ---
Post-Operative Progess Note Surgeon (s)/Wound/Ostomy Nurse (s) Surgeon MAURICIO RANKIN DO Wound/Ostomy Nurse: na Pre-Operative Diagnosis breast cancer Post-Operative Diagnosis same Procedure & Operative Findings Date of Procedure 11/10/18 Procedure Performed/Findings u/s guided right ij port placement Anesthesia Type mac c local Estimated Blood Loss Estimated blood loss (mL): min Specimens/Packing Specimens Removed na MAURICIO RANKIN DO Nov 10, 2018 09:58
[2018-11-10] MEDS ORDERED: ACHD5005 PO (09:59)
--- NOTE | 2018-11-10 10:02 | Discharge Inst-Simple/Standard ---
Discharge Inst-Standard Discharge Medications New, Converted or Re-Newed RX: RX on Chart Patient Instructions/Follow Up Plan of Care/Instructions/FU: [address] ice bag over incision on 15 min off 30 min and repeat for discomfort and to reduce swelling. Activity as Tolerated: No Discharge Diet: Regular Diet Other Inst to Patient Follow up Appt: Make appointment for 2 week. Instructions: No lifting greater than 10 pounds. No strenuous activity. May shower in 24 hours, no tub bath or soaking. Use incentive spirometer at home as directed. No Smoking Skin/Wound Care: May remove bandages in 24 hours. You have special glue over incisions it will fall off on its own. Symptoms to Report: Appetite Changes, Extremity Discoloration, Numbness/Tingling, Swelling Increased , Bleeding Excessive, Eyesight Changes, Pain Increased, Urine Color Change, Constipation(Persistent), Fever over 101 degree F, Pain/Pressure in chest, Urinating Difficulty, Cough Up/Vomit Blood, Heart Beat Irreg/Pounding, Pain/ Pressure in jaw, Vaginal Bleeding Increase, Cramps in feet or legs, Lightheadedness, Pain/Pressure in shoulder, Diarrhea(Persistent), Memory Changes Suddenly, Questions/Concerns, Weight gain consecutive days, Dizziness/ Fainting, Nausea/Vomiting, Shortness of Breath, Weight gain over 2 pounds If questions or concerns contact your physician Or seek help at emergency department. MAURICIO RANKIN DO Nov 10, 2018 10:02
[2018-11-10] MEDS ORDERED: morphine INJ 10 MG/ML 1ML (SYR OR VIAL) IVP ONE (10:15)
[2018-11-10] MEDS ORDERED: MEPERIDINE (DEMEROL) INJ 50 MG/ML IVP ONE (10:15)
[2018-11-10] MEDS ORDERED: ONDANSETRON 4 MG/2 ML (SDV) Z0FRAN IVP PRN (10:15)
[2018-11-10 10:25] VITALS: BP 111/80
--- NOTE | 2018-11-10 10:37 | Diagnostic Imaging Report ---
INDICATION: Postoperative Groshong placement. History of breast cancer. TECHNIQUE: Single view chest 10:10 AM. CORRELATION STUDY: None FINDINGS: Right IJ ohdxlu-z-kdhs catheter is present tip projected over the right paramediastinal region likely over the SVC. Heart size, mediastinum and vasculature overall within normal limits. Lung lundberg demonstrate mildly prominent interstitial markings but overall generally clear without evidence for infiltrate, effusion or pneumothorax. IMPRESSION: 1. Right IJ Obhlax-o-Lhtf catheter is present. No evidence for post line placement complication. Dictated by: Dictated on workstation # [id number]
[2018-11-10 10:55] VITALS: BP 135/70
--- NOTE | 2018-11-10 10:56 | Diagnostic Imaging Report ---
INDICATION: Fluoroscopy for right chest wall catheter placement. FINDINGS: Fluoroscopy was provided for Dr. Gonzalez during a right Groshong catheter placement. 36 seconds of fluoroscopy was utilized. Images demonstrate a right chest wall catheter with tip overlying the SVC right atrial junction. IMPRESSION: Fluoroscopy during right Groshong catheter placement. Dictated by: Dictated on workstation # [id number]
[2018-11-10 11:25] VITALS: BP 121/78
[2018-11-10 11:35] VITALS: BP 121/78
--- NOTE | 2018-11-10 12:57 | Anesthesia-General Post-Op ---
MAC Patient Condition Mental Status/LOC: Same as Preop Cardiovascular: Satisfactory Nausea/Vomiting: Absent Respiratory: Satisfactory Pain: Controlled Complications: Absent Post Op Complications Complications None Follow Up Care/Instructions Patient Instructions None needed. Anesthesiology Discharge Order Discharge Order Patient is doing well, no complaints, stable vital signs, no apparent adverse anesthesia problems. No complications reported per nursing. BERTA GRACE CRNA Nov 10, 2018 12:56
--- NOTE | 2018-11-11 02:53 | OPERATIVE REPORT ---
DATE OF SERVICE: 11/10/2018 PREOPERATIVE DIAGNOSIS: Breast cancer. POSTOPERATIVE DIAGNOSIS: Breast cancer. PROCEDURE: Right internal jugular vein ultrasound-guided port placement. SURGEON: Mauricio Gonzalez DO ANESTHESIA: MAC with local. ESTIMATED BLOOD LOSS: Minimal. COMPLICATIONS: None. INDICATIONS: The patient is a 48-year-old female with breast cancer. She understands risks and benefits of procedure and wished to proceed with procedure. Consent was signed on the chart. DESCRIPTION OF PROCEDURE: The patient was taken to the operating suite. She was prepped and draped in sterile fashion. Timeout was performed. Ultrasound was used to locate the right internal jugular vein. The local anesthetic was then infiltrated into the right neck area. Under direct visualization of the laparoscope, the right internal jugular vein was attempted to be accessed; however, the right carotid was accessed with a micro access needle. The micro access wire was inserted and fluoroscopy demonstrated this to be in the artery. The wire and the needle were removed. Pressure was held. Again, the ultrasound was then utilized the right internal jugular vein was accessed and dark nonpulsatile blood was withdrawn. The micro access wire was inserted through the needle and fluoroscopy demonstrated the wire to be in the proper placement. An 11 blade scalpel was used to make a small stab incision at the insertion point. The dilator was then advanced over the wire and the wire and dilator were removed. The regular guidewire was then inserted through the sheath and the sheath was then removed. Fluoroscopy assured proper placement. The wire was then secured. Local anesthetic was infiltrated onto the right neck and onto the right chest for a pocket creation and tunneling. A 15 blade scalpel was used to make a skin incision on the right chest and cautery dissection was used and taken down to the pectoral fascia bluntly a pocket was created. Dilator sheath was then advanced over the guidewire and the wire was removed. This was all done under fluoroscopy. The dilator was removed and the Groshong catheter was inserted through the sheath and then the sheath was removed. The catheter was then tunneled from the insertion point down to the pocket that was created. Fluoroscopy was used to cut the catheter length and then was secured to the port in the usual fashion. The port was then placed within the pocket and then accessed without difficulty. It was then flushed with saline and then with heparin without difficulty. Fluoroscopy assured proper placement. The subcutaneous tissue was then reapproximated using 3-0 Vicryl. Skin was then closed using Skin Affix, both of the incision and the neck insertion site. The patient tolerated the procedure well without any complications. She was taken to the recovery room in stable condition. Chest x-ray pending. Job ID: [id number] DocumentID: [id number] Dictated Date: 11/10/2018 16:46:19 Aircraft Instrument Tester Date: 11/11/2018 02:52:26 Dictated By: MAURICIO GONZALEZ DO
== END 2018-11-10 11:35 | disposition home or self-care (01) ==
LOC: SDC 05:52
PROVIDERS: ATTEND Surgery
DX: C50.912 Malignant neoplasm of unspecified site of left female breast (principal); Z11.2 Encounter for screening for other bacterial diseases; I10 Essential (primary) hypertension; F17.210 Nicotine dependence, cigarettes, uncomplicated; Z79.899 Other long term (current) drug therapy
CPT/HCPCS: 71045; 84703; 87081

== ENCOUNTER 2019-01-10 08:54 | Outpatient (RCR) | payer MEDICAID ==
[2018-10-14 11:21] LABS: BASOPHILS % (AUTO) 0 % (0-10); EOSINOPHILS # (AUTO) 0.1 10^3/uL (0.0-0.3); EOSINOPHILS % (AUTO) 1 % (0-10); HEMATOCRIT 43 % (35-52); HEMOGLOBIN 14.4 G/DL (11.5-16.0); LYMPHOCYTES # (AUTO) 1.9 X 10^3 (1.0-4.0); LYMPHOCYTES % (AUTO) 20 % (12-44); MEAN CORPUSCULAR HEMOGLOBIN 27 PG (25-34); MEAN CORPUSCULAR HGB CONC 34 G/DL (32-36); MEAN CORPUSCULAR VOLUME 79 FL (80-99); MEAN PLATELET VOLUME 12.7 FL (7.4-10.4); MONOCYTES % (AUTO) 10 % (0-12); NEUTROPHILS # (AUTO) 6.8 X 10^3 (1.8-7.8); NEUTROPHILS % (AUTO) 69 % (42-75); PLATELET COUNT 135 10^3/uL (130-400); RED CELL DISTRIBUTION WIDTH 13.5 % (10.0-14.5); WHITE BLOOD COUNT 9.8 10^3/uL (4.3-11.0)
[2018-10-14 11:39] LABS: ALANINE AMINOTRANSFERASE 16 U/L (0-55); ALBUMIN 3.7 GM/DL (3.2-4.5); ALKALINE PHOSPHATASE 166 U/L (40-136); BILIRUBIN,TOTAL 0.5 MG/DL (0.1-1.0); BUN/CREATININE RATIO 25; CALCIUM 9.4 MG/DL (8.5-10.1); CARBON DIOXIDE 20 MMOL/L (21-32); CHLORIDE 109 MMOL/L (98-107); CREATININE SERUM 0.52 MG/DL (0.60-1.30); GFR ESTIMATED > 60; GLUCOSE 133 MG/DL (70-105); POTASSIUM 4.2 MMOL/L (3.6-5.0); SODIUM 137 MMOL/L (135-145); TOTAL PROTEIN 7.2 GM/DL (6.4-8.2)
[2018-11-15 11:10] LABS: BASOPHILS % (AUTO) 0 % (0-10); EOSINOPHILS % (AUTO) 0 % (0-10); HEMATOCRIT 38 % (35-52); HEMOGLOBIN 12.9 G/DL (11.5-16.0); LYMPHOCYTES # (AUTO) 0.9 X 10^3 (1.0-4.0); LYMPHOCYTES % (AUTO) 10 % (12-44); MEAN CORPUSCULAR HEMOGLOBIN 27 PG (25-34); MEAN CORPUSCULAR HGB CONC 34 G/DL (32-36); MEAN CORPUSCULAR VOLUME 79 FL (80-99); MEAN PLATELET VOLUME 12.2 FL (7.4-10.4); MONOCYTES # (AUTO) 0.5 X 10^3 (0.0-1.0); MONOCYTES % (AUTO) 6 % (0-12); NEUTROPHILS # (AUTO) 7.6 X 10^3 (1.8-7.8); NEUTROPHILS % (AUTO) 85 % (42-75); PLATELET COUNT 151 10^3/uL (130-400); RED CELL DISTRIBUTION WIDTH 13.5 % (10.0-14.5)
[2018-11-15 11:33] LABS: ALANINE AMINOTRANSFERASE 23 U/L (0-55); ALBUMIN 3.7 GM/DL (3.2-4.5); ALKALINE PHOSPHATASE 143 U/L (40-136); BILIRUBIN,TOTAL 0.3 MG/DL (0.1-1.0); BUN/CREATININE RATIO 25; CALCIUM 9.3 MG/DL (8.5-10.1); CARBON DIOXIDE 19 MMOL/L (21-32); CHLORIDE 107 MMOL/L (98-107); CREATININE SERUM 0.61 MG/DL (0.60-1.30); GFR ESTIMATED > 60; GLUCOSE 234 MG/DL (70-105); POTASSIUM 3.7 MMOL/L (3.6-5.0); SODIUM 136 MMOL/L (135-145)
[2018-11-22 09:48] LABS: BASOPHILS % (AUTO) 1 % (0-10); EOSINOPHILS % (AUTO) 0 % (0-10); HEMATOCRIT 38 % (35-52); HEMOGLOBIN 13.2 G/DL (11.5-16.0); LYMPHOCYTES # (AUTO) 1.5 X 10^3 (1.0-4.0); LYMPHOCYTES % (AUTO) 78 % (12-44); MEAN CORPUSCULAR HEMOGLOBIN 27 PG (25-34); MEAN CORPUSCULAR HGB CONC 35 G/DL (32-36); MEAN CORPUSCULAR VOLUME 79 FL (80-99); MEAN PLATELET VOLUME 11.1 FL (7.4-10.4); MONOCYTES # (AUTO) 0.2 X 10^3 (0.0-1.0); MONOCYTES % (AUTO) 9 % (0-12); NEUTROPHILS # (AUTO) 0.2 X 10^3 (1.8-7.8); NEUTROPHILS % (AUTO) 12 % (42-75); PLATELET COUNT 98 10^3/uL (130-400); RED CELL DISTRIBUTION WIDTH 12.6 % (10.0-14.5); WHITE BLOOD COUNT 1.9 10^3/uL (4.3-11.0)
[2018-11-22 10:09] LABS: BUN/CREATININE RATIO 20; CALCIUM 8.8 MG/DL (8.5-10.1); CARBON DIOXIDE 25 MMOL/L (21-32); CHLORIDE 103 MMOL/L (98-107); CREATININE SERUM 0.55 MG/DL (0.60-1.30); GFR ESTIMATED > 60; GLUCOSE 120 MG/DL (70-105); POTASSIUM 3.5 MMOL/L (3.6-5.0); SODIUM 133 MMOL/L (135-145)
[2018-11-29 10:01] LABS: BASOPHILS % (AUTO) 0 % (0-10); EOSINOPHILS % (AUTO) 0 % (0-10); HEMATOCRIT 34 % (35-52); HEMOGLOBIN 11.5 G/DL (11.5-16.0); LYMPHOCYTES # (AUTO) 2.1 X 10^3 (1.0-4.0); LYMPHOCYTES % (AUTO) 43 % (12-44); MEAN CORPUSCULAR HEMOGLOBIN 27 PG (25-34); MEAN CORPUSCULAR HGB CONC 34 G/DL (32-36); MEAN CORPUSCULAR VOLUME 80 FL (80-99); MEAN PLATELET VOLUME 10.2 FL (7.4-10.4); MONOCYTES # (AUTO) 0.6 X 10^3 (0.0-1.0); MONOCYTES % (AUTO) 12 % (0-12); NEUTROPHILS # (AUTO) 2.2 X 10^3 (1.8-7.8); NEUTROPHILS % (AUTO) 45 % (42-75); PLATELET COUNT 176 10^3/uL (130-400); RED CELL DISTRIBUTION WIDTH 13.4 % (10.0-14.5); WHITE BLOOD COUNT 4.8 10^3/uL (4.3-11.0)
[2018-11-29 10:15] LABS: BUN/CREATININE RATIO 21; CALCIUM 8.7 MG/DL (8.5-10.1); CARBON DIOXIDE 27 MMOL/L (21-32); CHLORIDE 108 MMOL/L (98-107); CREATININE SERUM 0.56 MG/DL (0.60-1.30); GFR ESTIMATED > 60; GLUCOSE 106 MG/DL (70-105); POTASSIUM 2.9 MMOL/L (3.6-5.0); SODIUM 142 MMOL/L (135-145)
[2018-12-06 10:10] LABS: BASOPHILS % (AUTO) 0 % (0-10); EOSINOPHILS % (AUTO) 0 % (0-10); HEMATOCRIT 37 % (35-52); HEMOGLOBIN 12.1 G/DL (11.5-16.0); LYMPHOCYTES % (AUTO) 10 % (12-44); MEAN CORPUSCULAR HEMOGLOBIN 27 PG (25-34); MEAN CORPUSCULAR HGB CONC 33 G/DL (32-36); MEAN CORPUSCULAR VOLUME 81 FL (80-99); MEAN PLATELET VOLUME 11.3 FL (7.4-10.4); MONOCYTES # (AUTO) 0.3 X 10^3 (0.0-1.0); MONOCYTES % (AUTO) 4 % (0-12); NEUTROPHILS # (AUTO) 8.5 X 10^3 (1.8-7.8); NEUTROPHILS % (AUTO) 87 % (42-75); PLATELET COUNT 183 10^3/uL (130-400); RED CELL DISTRIBUTION WIDTH 14.2 % (10.0-14.5); WHITE BLOOD COUNT 9.8 10^3/uL (4.3-11.0)
[2018-12-06 10:32] LABS: ALANINE AMINOTRANSFERASE 19 U/L (0-55); ALBUMIN 3.8 GM/DL (3.2-4.5); ALKALINE PHOSPHATASE 141 U/L (40-136); BILIRUBIN,TOTAL 0.2 MG/DL (0.1-1.0); BUN/CREATININE RATIO 17; CALCIUM 9.9 MG/DL (8.5-10.1); CARBON DIOXIDE 21 MMOL/L (21-32); CHLORIDE 106 MMOL/L (98-107); CREATININE SERUM 0.65 MG/DL (0.60-1.30); GFR ESTIMATED > 60; GLUCOSE 184 MG/DL (70-105); POTASSIUM 4.4 MMOL/L (3.6-5.0); SODIUM 139 MMOL/L (135-145); TOTAL PROTEIN 6.6 GM/DL (6.4-8.2)
[2018-12-13 09:02] LABS: BASOPHILS # (AUTO) 0.1 10^3/uL (0.0-0.1); BASOPHILS % (AUTO) 2 % (0-10); EOSINOPHILS % (AUTO) 0 % (0-10); HEMATOCRIT 41 % (35-52); LYMPHOCYTES # (AUTO) 2.1 X 10^3 (1.0-4.0); LYMPHOCYTES % (AUTO) 74 % (12-44); MEAN CORPUSCULAR HEMOGLOBIN 27 PG (25-34); MEAN CORPUSCULAR HGB CONC 34 G/DL (32-36); MEAN CORPUSCULAR VOLUME 79 FL (80-99); MEAN PLATELET VOLUME 12.3 FL (7.4-10.4); MONOCYTES # (AUTO) 0.2 X 10^3 (0.0-1.0); MONOCYTES % (AUTO) 6 % (0-12); NEUTROPHILS # (AUTO) 0.5 X 10^3 (1.8-7.8); NEUTROPHILS % (AUTO) 19 % (42-75); PLATELET COUNT 133 10^3/uL (130-400); RED CELL DISTRIBUTION WIDTH 14.2 % (10.0-14.5); WHITE BLOOD COUNT 2.9 10^3/uL (4.3-11.0)
[2018-12-13 09:17] LABS: BUN/CREATININE RATIO 15; CALCIUM 8.9 MG/DL (8.5-10.1); CARBON DIOXIDE 25 MMOL/L (21-32); CHLORIDE 102 MMOL/L (98-107); CREATININE SERUM 0.61 MG/DL (0.60-1.30); GFR ESTIMATED > 60; GLUCOSE 91 MG/DL (70-105); POTASSIUM 3.2 MMOL/L (3.6-5.0); SODIUM 137 MMOL/L (135-145)
[2018-12-20 08:36] LABS: BASOPHILS % (AUTO) 0 % (0-10); EOSINOPHILS % (AUTO) 0 % (0-10); HEMATOCRIT 37 % (35-52); HEMOGLOBIN 12.3 G/DL (11.5-16.0); LYMPHOCYTES # (AUTO) 1.8 X 10^3 (1.0-4.0); LYMPHOCYTES % (AUTO) 58 % (12-44); MEAN CORPUSCULAR HEMOGLOBIN 27 PG (25-34); MEAN CORPUSCULAR HGB CONC 34 G/DL (32-36); MEAN CORPUSCULAR VOLUME 80 FL (80-99); MEAN PLATELET VOLUME 11.7 FL (7.4-10.4); MONOCYTES # (AUTO) 0.5 X 10^3 (0.0-1.0); MONOCYTES % (AUTO) 16 % (0-12); NEUTROPHILS # (AUTO) 0.8 X 10^3 (1.8-7.8); NEUTROPHILS % (AUTO) 26 % (42-75); PLATELET COUNT 125 10^3/uL (130-400); RED CELL DISTRIBUTION WIDTH 14.5 % (10.0-14.5); WHITE BLOOD COUNT 3.1 10^3/uL (4.3-11.0)
[2018-12-20 08:56] LABS: BUN/CREATININE RATIO 13; CALCIUM 9.4 MG/DL (8.5-10.1); CARBON DIOXIDE 27 MMOL/L (21-32); CHLORIDE 105 MMOL/L (98-107); CREATININE SERUM 0.64 MG/DL (0.60-1.30); GFR ESTIMATED > 60; GLUCOSE 115 MG/DL (70-105); POTASSIUM 2.8 MMOL/L (3.6-5.0); SODIUM 140 MMOL/L (135-145)
[2018-12-27 09:04] LABS: BASOPHILS % (AUTO) 0 % (0-10); EOSINOPHILS % (AUTO) 0 % (0-10); HEMATOCRIT 35 % (35-52); HEMOGLOBIN 11.4 G/DL (11.5-16.0); LYMPHOCYTES # (AUTO) 0.9 X 10^3 (1.0-4.0); LYMPHOCYTES % (AUTO) 18 % (12-44); MEAN CORPUSCULAR HEMOGLOBIN 27 PG (25-34); MEAN CORPUSCULAR HGB CONC 33 G/DL (32-36); MEAN CORPUSCULAR VOLUME 83 FL (80-99); MEAN PLATELET VOLUME 11.5 FL (7.4-10.4); MONOCYTES # (AUTO) 0.1 X 10^3 (0.0-1.0); MONOCYTES % (AUTO) 3 % (0-12); NEUTROPHILS # (AUTO) 4.1 X 10^3 (1.8-7.8); NEUTROPHILS % (AUTO) 80 % (42-75); PLATELET COUNT 139 10^3/uL (130-400); RED CELL DISTRIBUTION WIDTH 14.9 % (10.0-14.5); WHITE BLOOD COUNT 5.2 10^3/uL (4.3-11.0)
[2018-12-27 09:25] LABS: ALANINE AMINOTRANSFERASE 20 U/L (0-55); ALBUMIN 3.7 GM/DL (3.2-4.5); ALKALINE PHOSPHATASE 134 U/L (40-136); BILIRUBIN,TOTAL 0.3 MG/DL (0.1-1.0); BUN/CREATININE RATIO 18; CALCIUM 9.3 MG/DL (8.5-10.1); CARBON DIOXIDE 21 MMOL/L (21-32); CHLORIDE 106 MMOL/L (98-107); CREATININE SERUM 0.67 MG/DL (0.60-1.30); GFR ESTIMATED > 60; GLUCOSE 289 MG/DL (70-105); SODIUM 138 MMOL/L (135-145); TOTAL PROTEIN 6.3 GM/DL (6.4-8.2)
[2019-01-03 09:07] LABS: BASOPHILS % (AUTO) 1 % (0-10); EOSINOPHILS % (AUTO) 0 % (0-10); HEMATOCRIT 36 % (35-52); HEMOGLOBIN 11.9 G/DL (11.5-16.0); LYMPHOCYTES # (AUTO) 2.1 X 10^3 (1.0-4.0); LYMPHOCYTES % (AUTO) 64 % (12-44); MEAN CORPUSCULAR HEMOGLOBIN 27 PG (25-34); MEAN CORPUSCULAR HGB CONC 33 G/DL (32-36); MEAN CORPUSCULAR VOLUME 81 FL (80-99); MEAN PLATELET VOLUME 11.3 FL (7.4-10.4); MONOCYTES # (AUTO) 0.1 X 10^3 (0.0-1.0); MONOCYTES % (AUTO) 3 % (0-12); NEUTROPHILS # (AUTO) 1.1 X 10^3 (1.8-7.8); NEUTROPHILS % (AUTO) 33 % (42-75); PLATELET COUNT 129 10^3/uL (130-400); RED CELL DISTRIBUTION WIDTH 15.2 % (10.0-14.5); WHITE BLOOD COUNT 3.3 10^3/uL (4.3-11.0)
[2019-01-03 09:28] LABS: BUN/CREATININE RATIO 17; CALCIUM 8.8 MG/DL (8.5-10.1); CARBON DIOXIDE 23 MMOL/L (21-32); CHLORIDE 104 MMOL/L (98-107); GFR ESTIMATED > 60; GLUCOSE 120 MG/DL (70-105); POTASSIUM 3.5 MMOL/L (3.6-5.0); SODIUM 138 MMOL/L (135-145)
[~2019-01-10] VITALS: Ht 165.1 cm; Wt 69.4 kg
[~2019-01-10 08:54] MED LIST changes: +DOCETAXEL IV SCH; +FAMOTIDINE 20MG/2ML IV (CANCER CTR) IV SCH; +FOSAPREPITANT DIMEGLUMINE 150 MG in NS (IVPB) CANCER CENTER ONLY 150 ML IV SCH; +NORMAL SALINE IV SCH; +NS IV 1000 ML (CANCER CTR) IV SCH; +NS IV SCH; +PALONOSETRON HCL 0.25 MG, DEXAMETHASONE INJECTION 10 MG in NS (IVPB) CANCER CENTER 50 ML IV SCH; +PERTUZUMAB 420 MG in NS (IVPB) CANCER CENTER 250 ML IV SCH; +PERTUZUMAB 840 MG in NS (IVPB) CANCER CENTER 250 ML IV ONE; +TRASTUZUMAB IV SCH; +diphenhydrAMINE 25 MG TAB (BENADRYL) CANCER CENTER PO SCH
[2019-01-10 09:14] LABS: BASOPHILS % (AUTO) 1 % (0-10); EOSINOPHILS % (AUTO) 0 % (0-10); HEMATOCRIT 34 % (35-52); HEMOGLOBIN 10.9 G/DL (11.5-16.0); LYMPHOCYTES # (AUTO) 1.6 X 10^3 (1.0-4.0); LYMPHOCYTES % (AUTO) 70 % (12-44); MEAN CORPUSCULAR HEMOGLOBIN 27 PG (25-34); MEAN CORPUSCULAR HGB CONC 32 G/DL (32-36); MEAN CORPUSCULAR VOLUME 83 FL (80-99); MEAN PLATELET VOLUME 10.2 FL (7.4-10.4); MONOCYTES # (AUTO) 0.4 X 10^3 (0.0-1.0); MONOCYTES % (AUTO) 17 % (0-12); NEUTROPHILS # (AUTO) 0.3 X 10^3 (1.8-7.8); NEUTROPHILS % (AUTO) 12 % (42-75); PLATELET COUNT 150 10^3/uL (130-400); RED CELL DISTRIBUTION WIDTH 16.3 % (10.0-14.5); WHITE BLOOD COUNT 2.3 10^3/uL (4.3-11.0)
[2019-01-10 09:26] LABS: BUN/CREATININE RATIO 21; CALCIUM 8.6 MG/DL (8.5-10.1); CARBON DIOXIDE 26 MMOL/L (21-32); CHLORIDE 107 MMOL/L (98-107); CREATININE SERUM 0.58 MG/DL (0.60-1.30); GFR ESTIMATED > 60; GLUCOSE 90 MG/DL (70-105); POTASSIUM 2.9 MMOL/L (3.6-5.0); SODIUM 141 MMOL/L (135-145)
== END 2019-01-12 | disposition home or self-care (01) ==
LOC: ONC 08:54
PROVIDERS: ATTEND Internal Medicine Hematology & Oncology
DX: C50.212 Malignant neoplasm of upper-inner quadrant of left female breast (principal); E05.00 Thyrotoxicosis with diffuse goiter without thyrotoxic crisis or storm; F17.210 Nicotine dependence, cigarettes, uncomplicated; Z17.0 Estrogen receptor positive status [ER+]; Z79.899 Other long term (current) drug therapy
CPT/HCPCS: 36415; 36591; 80048; 80053; 84443; 84703; 85025; 86300; 86800; 96367; 96375; 96413; 96415; 96417; 99213; 99214

== ENCOUNTER → 2019-01-10 | Outpatient (CLI) | payer MEDICAID ==
[2019-01-10 09:49] LABS: FREE T4 (FREE THYROXINE) 0.94 NG/DL (0.70-1.48)
== END ==
LOC: LAB 08:57
PROVIDERS: ATTEND Nurse Practitioner Family
DX: E05.90 Thyrotoxicosis, unspecified without thyrotoxic crisis or storm (principal)
CPT/HCPCS: 36415; 84439; 84443

== ENCOUNTER → 2019-01-11 | Outpatient (CLI) | payer MEDICAID ==
[~2019-01-11] MED LIST changes: -DOCETAXEL IV SCH; -FAMOTIDINE 20MG/2ML IV (CANCER CTR) IV SCH; -FOSAPREPITANT DIMEGLUMINE 150 MG in NS (IVPB) CANCER CENTER ONLY 150 ML IV SCH; -NORMAL SALINE IV SCH; -NS IV 1000 ML (CANCER CTR) IV SCH; -NS IV SCH; -PALONOSETRON HCL 0.25 MG, DEXAMETHASONE INJECTION 10 MG in NS (IVPB) CANCER CENTER 50 ML IV SCH; -PERTUZUMAB 420 MG in NS (IVPB) CANCER CENTER 250 ML IV SCH; -PERTUZUMAB 840 MG in NS (IVPB) CANCER CENTER 250 ML IV ONE; -TRASTUZUMAB IV SCH; -diphenhydrAMINE 25 MG TAB (BENADRYL) CANCER CENTER PO SCH
--- NOTE | 2019-01-11 12:37 | Diagnostic Imaging Report ---
PROCEDURE: US Non-ob pelvis comp/trans. TECHNIQUE: Multiple realtime grayscale images were obtained of the pelvis in various projections endovaginally. Transabdominal imaging was also performed. INDICATION: Irregular menses. FINDINGS: The uterus is retroflexed measuring approximately 6.5 x 4.1 x 3.8 cm. Endometrium is 4 mm in thickness. No myometrial mass is seen. Right ovary was not visualized. Left ovary is poorly visualized due to bowel gas and measures approximately 1.8 x 1.4 x 1.4 cm. No adnexal mass or free fluid is detected. IMPRESSION: Nonvisualized right ovary. The study is otherwise unremarkable. Dictated by: Dictated on workstation # [id number]
== END ==
LOC: RAD 10:30
PROVIDERS: ATTEND Obstetrics & Gynecology
DX: N92.6 Irregular menstruation, unspecified (principal); Z80.41 Family history of malignant neoplasm of ovary; Z85.3 Personal history of malignant neoplasm of breast
CPT/HCPCS: 76830; 76856

== ENCOUNTER → 2019-01-24 | Outpatient (CLI) | payer MEDICAID ==
[2019-01-24 10:47] LABS: FREE T4 (FREE THYROXINE) 0.88 NG/DL (0.70-1.48)
== END ==
LOC: LAB 09:48
PROVIDERS: ATTEND Nurse Practitioner Family
DX: E05.90 Thyrotoxicosis, unspecified without thyrotoxic crisis or storm (principal)
CPT/HCPCS: 36415; 84439; 84443

== ENCOUNTER → 2019-02-13 | Outpatient (CLI) | payer MEDICAID ==
[2019-02-13 16:07] LABS: FREE T4 (FREE THYROXINE) 0.8 NG/DL (0.70-1.48)
== END ==
LOC: LAB 15:02
PROVIDERS: ATTEND Nurse Practitioner Family
DX: E05.90 Thyrotoxicosis, unspecified without thyrotoxic crisis or storm (principal)
CPT/HCPCS: 36415; 84439; 84443; 84480

== ENCOUNTER → 2019-03-16 | Outpatient (CLI) | payer MEDICAID ==
--- NOTE | 2019-03-16 16:30 | Diagnostic Imaging Report ---
PROCEDURE: US Venous Lower Ext Trey. TECHNIQUE: Multiple real-time grayscale images were obtained over the lower extremities in various projections, bilaterally. Additional duplex Doppler and color Doppler images were also obtained. INDICATION: Bilateral lower extremity swelling. FINDINGS: There is no evidence of right or left lower extremity DVT. Both lower extremity deep venous systems demonstrate normal compressibility with normal response to augmentation and Valsalva. No fluid collection or mass is seen. IMPRESSION: No evidence of right or left lower extremity DVT. Dictated by: Dictated on workstation # [id number]
== END ==
LOC: RAD 14:38
PROVIDERS: ATTEND Nurse Practitioner Adult Health
DX: C50.919 Malignant neoplasm of unspecified site of unspecified female breast (principal); M79.89 Other specified soft tissue disorders
CPT/HCPCS: 93970

== ENCOUNTER → 2019-03-20 | Outpatient (CLI) | payer MEDICAID | LOC: CARD 11:04 | PROVIDERS: ATTEND Nurse Practitioner Adult Health | DX: M79.89 Other specified soft tissue disorders (principal); C50.819 Malignant neoplasm of overlapping sites of unspecified female breast; T88.7XXA Unspecified adverse effect of drug or medicament, initial encounter; I36.1 Nonrheumatic tricuspid (valve) insufficiency; I51.7 Cardiomegaly | CPT/HCPCS: 93306 ==

== ENCOUNTER 2019-03-21 09:41 | Outpatient (RCR) | payer MEDICAID ==
[2019-01-17 10:45] LABS: BASOPHILS % (AUTO) 0 % (0-10); EOSINOPHILS % (AUTO) 0 % (0-10); HEMATOCRIT 37 % (35-52); HEMOGLOBIN 12.3 G/DL (11.5-16.0); LYMPHOCYTES % (AUTO) 13 % (12-44); MEAN CORPUSCULAR HEMOGLOBIN 28 PG (25-34); MEAN CORPUSCULAR HGB CONC 33 G/DL (32-36); MEAN CORPUSCULAR VOLUME 85 FL (80-99); MEAN PLATELET VOLUME 11.2 FL (7.4-10.4); MONOCYTES # (AUTO) 0.4 X 10^3 (0.0-1.0); MONOCYTES % (AUTO) 6 % (0-12); NEUTROPHILS # (AUTO) 6.3 X 10^3 (1.8-7.8); NEUTROPHILS % (AUTO) 81 % (42-75); PLATELET COUNT 158 10^3/uL (130-400); RED CELL DISTRIBUTION WIDTH 16.9 % (10.0-14.5); WHITE BLOOD COUNT 7.8 10^3/uL (4.3-11.0)
[2019-01-17 11:03] LABS: ALANINE AMINOTRANSFERASE 26 U/L (0-55); ALKALINE PHOSPHATASE 177 U/L (40-136); BILIRUBIN,TOTAL 0.3 MG/DL (0.1-1.0); BUN/CREATININE RATIO 22; CALCIUM 8.9 MG/DL (8.5-10.1); CARBON DIOXIDE 22 MMOL/L (21-32); CHLORIDE 108 MMOL/L (98-107); CREATININE SERUM 0.65 MG/DL (0.60-1.30); GFR ESTIMATED > 60; GLUCOSE 180 MG/DL (70-105); POTASSIUM 3.9 MMOL/L (3.6-5.0); SODIUM 139 MMOL/L (135-145); TOTAL PROTEIN 6.4 GM/DL (6.4-8.2)
[2019-01-24 10:07] LABS: BASOPHILS % (AUTO) 1 % (0-10); EOSINOPHILS % (AUTO) 0 % (0-10); HEMATOCRIT 40 % (35-52); HEMOGLOBIN 13.4 G/DL (11.5-16.0); LYMPHOCYTES # (AUTO) 2.5 X 10^3 (1.0-4.0); LYMPHOCYTES % (AUTO) 78 % (12-44); MEAN CORPUSCULAR HEMOGLOBIN 28 PG (25-34); MEAN CORPUSCULAR HGB CONC 34 G/DL (32-36); MEAN CORPUSCULAR VOLUME 82 FL (80-99); MEAN PLATELET VOLUME 11.4 FL (7.4-10.4); MONOCYTES # (AUTO) 0.1 X 10^3 (0.0-1.0); MONOCYTES % (AUTO) 3 % (0-12); NEUTROPHILS # (AUTO) 0.6 X 10^3 (1.8-7.8); NEUTROPHILS % (AUTO) 18 % (42-75); PLATELET COUNT 139 10^3/uL (130-400); RED CELL DISTRIBUTION WIDTH 16.5 % (10.0-14.5); WHITE BLOOD COUNT 3.2 10^3/uL (4.3-11.0)
[2019-01-24 10:25] LABS: BUN/CREATININE RATIO 27; CALCIUM 9.2 MG/DL (8.5-10.1); CARBON DIOXIDE 27 MMOL/L (21-32); CHLORIDE 100 MMOL/L (98-107); CREATININE SERUM 0.66 MG/DL (0.60-1.30); GFR ESTIMATED > 60; GLUCOSE 95 MG/DL (70-105); POTASSIUM 3.2 MMOL/L (3.6-5.0); SODIUM 139 MMOL/L (135-145)
[2019-01-31 11:14] LABS: BASOPHILS % (AUTO) 1 % (0-10); EOSINOPHILS % (AUTO) 0 % (0-10); HEMATOCRIT 36 % (35-52); LYMPHOCYTES # (AUTO) 2.1 X 10^3 (1.0-4.0); LYMPHOCYTES % (AUTO) 59 % (12-44); MEAN CORPUSCULAR HEMOGLOBIN 28 PG (25-34); MEAN CORPUSCULAR HGB CONC 33 G/DL (32-36); MEAN CORPUSCULAR VOLUME 85 FL (80-99); MEAN PLATELET VOLUME 10.7 FL (7.4-10.4); MONOCYTES # (AUTO) 0.5 X 10^3 (0.0-1.0); MONOCYTES % (AUTO) 14 % (0-12); NEUTROPHILS # (AUTO) 0.9 X 10^3 (1.8-7.8); NEUTROPHILS % (AUTO) 26 % (42-75); PLATELET COUNT 162 10^3/uL (130-400); RED CELL DISTRIBUTION WIDTH 16.3 % (10.0-14.5); WHITE BLOOD COUNT 3.5 10^3/uL (4.3-11.0)
[2019-01-31 11:38] LABS: BUN/CREATININE RATIO 12; CARBON DIOXIDE 31 MMOL/L (21-32); CHLORIDE 102 MMOL/L (98-107); CREATININE SERUM 0.69 MG/DL (0.60-1.30); GFR ESTIMATED > 60; GLUCOSE 118 MG/DL (70-105); POTASSIUM 2.8 MMOL/L (3.6-5.0); SODIUM 141 MMOL/L (135-145)
[2019-02-07 10:43] LABS: BASOPHILS % (AUTO) 0 % (0-10); EOSINOPHILS % (AUTO) 0 % (0-10); HEMATOCRIT 37 % (35-52); HEMOGLOBIN 12.1 G/DL (11.5-16.0); LYMPHOCYTES # (AUTO) 1.8 X 10^3 (1.0-4.0); LYMPHOCYTES % (AUTO) 13 % (12-44); MEAN CORPUSCULAR HEMOGLOBIN 28 PG (25-34); MEAN CORPUSCULAR HGB CONC 33 G/DL (32-36); MEAN CORPUSCULAR VOLUME 85 FL (80-99); MEAN PLATELET VOLUME 11.1 FL (7.4-10.4); MONOCYTES # (AUTO) 0.8 X 10^3 (0.0-1.0); MONOCYTES % (AUTO) 6 % (0-12); NEUTROPHILS # (AUTO) 11.1 X 10^3 (1.8-7.8); NEUTROPHILS % (AUTO) 81 % (42-75); PLATELET COUNT 202 10^3/uL (130-400); RED CELL DISTRIBUTION WIDTH 17.1 % (10.0-14.5); WHITE BLOOD COUNT 13.7 10^3/uL (4.3-11.0)
[2019-02-07 10:57] LABS: ALANINE AMINOTRANSFERASE 19 U/L (0-55); ALBUMIN 4.1 GM/DL (3.2-4.5); ALKALINE PHOSPHATASE 164 U/L (40-136); BILIRUBIN,TOTAL 0.3 MG/DL (0.1-1.0); BUN/CREATININE RATIO 22; CALCIUM 9.6 MG/DL (8.5-10.1); CARBON DIOXIDE 26 MMOL/L (21-32); CHLORIDE 105 MMOL/L (98-107); CREATININE SERUM 0.72 MG/DL (0.60-1.30); GFR ESTIMATED > 60; GLUCOSE 118 MG/DL (70-105); POTASSIUM 3.9 MMOL/L (3.6-5.0); SODIUM 138 MMOL/L (135-145); TOTAL PROTEIN 6.5 GM/DL (6.4-8.2)
[2019-02-13 15:25] LABS: BASOPHILS # (AUTO) 0.1 10^3/uL (0.0-0.1); BASOPHILS % (AUTO) 1 % (0-10); EOSINOPHILS % (AUTO) 0 % (0-10); HEMATOCRIT 39 % (35-52); HEMOGLOBIN 12.9 G/DL (11.5-16.0); LYMPHOCYTES # (AUTO) 2.6 X 10^3 (1.0-4.0); LYMPHOCYTES % (AUTO) 73 % (12-44); MEAN CORPUSCULAR HEMOGLOBIN 28 PG (25-34); MEAN CORPUSCULAR HGB CONC 33 G/DL (32-36); MEAN CORPUSCULAR VOLUME 85 FL (80-99); MEAN PLATELET VOLUME 11.4 FL (7.4-10.4); MONOCYTES # (AUTO) 0.1 X 10^3 (0.0-1.0); MONOCYTES % (AUTO) 1 % (0-12); NEUTROPHILS # (AUTO) 0.9 X 10^3 (1.8-7.8); NEUTROPHILS % (AUTO) 24 % (42-75); PLATELET COUNT 121 10^3/uL (130-400); RED CELL DISTRIBUTION WIDTH 16.2 % (10.0-14.5); WHITE BLOOD COUNT 3.6 10^3/uL (4.3-11.0)
[2019-02-13 15:47] LABS: ALANINE AMINOTRANSFERASE 24 U/L (0-55); ALKALINE PHOSPHATASE 154 U/L (40-136); BILIRUBIN,TOTAL 0.3 MG/DL (0.1-1.0); BUN/CREATININE RATIO 18; CARBON DIOXIDE 27 MMOL/L (21-32); CHLORIDE 101 MMOL/L (98-107); CREATININE SERUM 0.68 MG/DL (0.60-1.30); GFR ESTIMATED > 60; GLUCOSE 117 MG/DL (70-105); POTASSIUM 3.4 MMOL/L (3.6-5.0); SODIUM 138 MMOL/L (135-145); TOTAL PROTEIN 6.5 GM/DL (6.4-8.2)
[2019-02-21 14:00] LABS: BASOPHILS % (AUTO) 0 % (0-10); EOSINOPHILS % (AUTO) 0 % (0-10); HEMATOCRIT 36 % (35-52); HEMOGLOBIN 11.9 G/DL (11.5-16.0); LYMPHOCYTES % (AUTO) 69 % (12-44); MEAN CORPUSCULAR HEMOGLOBIN 29 PG (25-34); MEAN CORPUSCULAR HGB CONC 33 G/DL (32-36); MEAN CORPUSCULAR VOLUME 87 FL (80-99); MEAN PLATELET VOLUME 10.6 FL (7.4-10.4); MONOCYTES # (AUTO) 0.5 X 10^3 (0.0-1.0); MONOCYTES % (AUTO) 16 % (0-12); NEUTROPHILS # (AUTO) 0.4 X 10^3 (1.8-7.8); NEUTROPHILS % (AUTO) 14 % (42-75); PLATELET COUNT 144 10^3/uL (130-400); RED CELL DISTRIBUTION WIDTH 16.6 % (10.0-14.5)
[2019-02-21 14:30] LABS: BUN/CREATININE RATIO 9; CALCIUM 9.1 MG/DL (8.5-10.1); CARBON DIOXIDE 27 MMOL/L (21-32); CHLORIDE 106 MMOL/L (98-107); CREATININE SERUM 0.68 MG/DL (0.60-1.30); GFR ESTIMATED > 60; GLUCOSE 108 MG/DL (70-105); POTASSIUM 3.2 MMOL/L (3.6-5.0); SODIUM 142 MMOL/L (135-145)
[2019-02-28 09:43] LABS: BASOPHILS % (AUTO) 0 % (0-10); EOSINOPHILS % (AUTO) 0 % (0-10); HEMATOCRIT 37 % (35-52); HEMOGLOBIN 12.1 G/DL (11.5-16.0); LYMPHOCYTES # (AUTO) 1.3 X 10^3 (1.0-4.0); LYMPHOCYTES % (AUTO) 13 % (12-44); MEAN CORPUSCULAR HEMOGLOBIN 29 PG (25-34); MEAN CORPUSCULAR HGB CONC 33 G/DL (32-36); MEAN CORPUSCULAR VOLUME 88 FL (80-99); MEAN PLATELET VOLUME 11.5 FL (7.4-10.4); MONOCYTES # (AUTO) 0.8 X 10^3 (0.0-1.0); MONOCYTES % (AUTO) 8 % (0-12); NEUTROPHILS # (AUTO) 8.4 X 10^3 (1.8-7.8); NEUTROPHILS % (AUTO) 80 % (42-75); PLATELET COUNT 158 10^3/uL (130-400); RED CELL DISTRIBUTION WIDTH 16.6 % (10.0-14.5); WHITE BLOOD COUNT 10.6 10^3/uL (4.3-11.0)
[2019-02-28 09:57] LABS: ALANINE AMINOTRANSFERASE 19 U/L (0-55); ALBUMIN 4.1 GM/DL (3.2-4.5); ALKALINE PHOSPHATASE 151 U/L (40-136); BILIRUBIN,TOTAL 0.2 MG/DL (0.1-1.0); BUN/CREATININE RATIO 18; CALCIUM 9.4 MG/DL (8.5-10.1); CARBON DIOXIDE 20 MMOL/L (21-32); CHLORIDE 106 MMOL/L (98-107); CREATININE SERUM 0.77 MG/DL (0.60-1.30); GFR ESTIMATED > 60; GLUCOSE 223 MG/DL (70-105); POTASSIUM 3.7 MMOL/L (3.6-5.0); SODIUM 140 MMOL/L (135-145); TOTAL PROTEIN 6.8 GM/DL (6.4-8.2)
[2019-03-07 11:37] LABS: BASOPHILS % (AUTO) 0 % (0-10); EOSINOPHILS % (AUTO) 0 % (0-10); HEMATOCRIT 41 % (35-52); HEMOGLOBIN 13.8 G/DL (11.5-16.0); LYMPHOCYTES # (AUTO) 2.9 X 10^3 (1.0-4.0); LYMPHOCYTES % (AUTO) 82 % (12-44); MEAN CORPUSCULAR HEMOGLOBIN 29 PG (25-34); MEAN CORPUSCULAR HGB CONC 34 G/DL (32-36); MEAN CORPUSCULAR VOLUME 85 FL (80-99); MEAN PLATELET VOLUME 10.8 FL (7.4-10.4); MONOCYTES # (AUTO) 0.1 X 10^3 (0.0-1.0); MONOCYTES % (AUTO) 3 % (0-12); NEUTROPHILS # (AUTO) 0.5 X 10^3 (1.8-7.8); NEUTROPHILS % (AUTO) 15 % (42-75); PLATELET COUNT 124 10^3/uL (130-400); RED CELL DISTRIBUTION WIDTH 15.5 % (10.0-14.5); WHITE BLOOD COUNT 3.6 10^3/uL (4.3-11.0)
[2019-03-07 12:02] LABS: BUN/CREATININE RATIO 15; CALCIUM 8.9 MG/DL (8.5-10.1); CARBON DIOXIDE 27 MMOL/L (21-32); CHLORIDE 99 MMOL/L (98-107); CREATININE SERUM 0.74 MG/DL (0.60-1.30); GFR ESTIMATED > 60; GLUCOSE 120 MG/DL (70-105); POTASSIUM 3.1 MMOL/L (3.6-5.0); SODIUM 134 MMOL/L (135-145)
[2019-03-14 11:15] LABS: BASOPHILS % (AUTO) 0 % (0-10); EOSINOPHILS % (AUTO) 0 % (0-10); HEMATOCRIT 36 % (35-52); HEMOGLOBIN 11.8 G/DL (11.5-16.0); LYMPHOCYTES # (AUTO) 1.8 X 10^3 (1.0-4.0); LYMPHOCYTES % (AUTO) 51 % (12-44); MEAN CORPUSCULAR HEMOGLOBIN 29 PG (25-34); MEAN CORPUSCULAR HGB CONC 33 G/DL (32-36); MEAN CORPUSCULAR VOLUME 89 FL (80-99); MEAN PLATELET VOLUME 10.9 FL (7.4-10.4); MONOCYTES # (AUTO) 0.6 X 10^3 (0.0-1.0); MONOCYTES % (AUTO) 17 % (0-12); NEUTROPHILS # (AUTO) 1.1 X 10^3 (1.8-7.8); NEUTROPHILS % (AUTO) 31 % (42-75); PLATELET COUNT 129 10^3/uL (130-400); RED CELL DISTRIBUTION WIDTH 15.9 % (10.0-14.5); WHITE BLOOD COUNT 3.6 10^3/uL (4.3-11.0)
[2019-03-14 11:22] LABS: BUN/CREATININE RATIO 8; CALCIUM 8.7 MG/DL (8.5-10.1); CARBON DIOXIDE 27 MMOL/L (21-32); CHLORIDE 104 MMOL/L (98-107); CREATININE SERUM 0.65 MG/DL (0.60-1.30); GFR ESTIMATED > 60; GLUCOSE 116 MG/DL (70-105); POTASSIUM 3.1 MMOL/L (3.6-5.0); SODIUM 143 MMOL/L (135-145)
[~2019-03-21] VITALS: Ht 165.1 cm; Wt 70.8 kg
[~2019-03-21 09:41] MED LIST changes: +FAMOTIDINE 20MG/2ML IV (CANCER CTR) IV SCH; +FOSAPREPITANT DIMEGLUMINE 150 MG in NS (IVPB) CANCER CENTER ONLY 150 ML IV SCH; +NS IV 1000 ML (CANCER CTR) IV SCH; +NS IV SCH; +PALONOSETRON HCL 0.25 MG, DEXAMETHASONE INJECTION 10 MG in NS (IVPB) CANCER CENTER 50 ML IV SCH; +PERTUZUMAB 420 MG in NS (IVPB) CANCER CENTER 250 ML IV SCH; +TRASTUZUMAB IV SCH; +diphenhydrAMINE 25 MG TAB (BENADRYL) CANCER CENTER PO SCH
[2019-03-21 10:03] LABS: BASOPHILS % (AUTO) 0 % (0-10); EOSINOPHILS % (AUTO) 0 % (0-10); HEMATOCRIT 35 % (35-52); HEMOGLOBIN 11.4 G/DL (11.5-16.0); LYMPHOCYTES # (AUTO) 1.1 X 10^3 (1.0-4.0); LYMPHOCYTES % (AUTO) 13 % (12-44); MEAN CORPUSCULAR HEMOGLOBIN 29 PG (25-34); MEAN CORPUSCULAR HGB CONC 33 G/DL (32-36); MEAN CORPUSCULAR VOLUME 90 FL (80-99); MEAN PLATELET VOLUME 11.1 FL (7.4-10.4); MONOCYTES # (AUTO) 0.4 X 10^3 (0.0-1.0); MONOCYTES % (AUTO) 4 % (0-12); NEUTROPHILS % (AUTO) 83 % (42-75); PLATELET COUNT 161 10^3/uL (130-400); RED CELL DISTRIBUTION WIDTH 16.4 % (10.0-14.5); WHITE BLOOD COUNT 8.5 10^3/uL (4.3-11.0)
[2019-03-21 10:25] LABS: ALANINE AMINOTRANSFERASE 18 U/L (0-55); ALBUMIN 3.9 GM/DL (3.2-4.5); ALKALINE PHOSPHATASE 144 U/L (40-136); BILIRUBIN,TOTAL 0.2 MG/DL (0.1-1.0); BUN/CREATININE RATIO 24; CALCIUM 9.7 MG/DL (8.5-10.1); CARBON DIOXIDE 23 MMOL/L (21-32); CHLORIDE 107 MMOL/L (98-107); GFR ESTIMATED > 60; GLUCOSE 162 MG/DL (70-105); POTASSIUM 3.9 MMOL/L (3.6-5.0); SODIUM 138 MMOL/L (135-145); TOTAL PROTEIN 6.3 GM/DL (6.4-8.2)
[2019-03-28] MEDS ORDERED: PANT20TA3 PO (09:47)
[2019-04-05] MEDS ORDERED: DOCU-143 PO (13:24)
[2019-04-05] MEDS ORDERED: ACHD5005 PO (13:24)
== END 2019-04-17 | disposition home or self-care (01) ==
LOC: ONC 09:41
PROVIDERS: ATTEND Internal Medicine Hematology & Oncology
DX: Z51.11 Encounter for antineoplastic chemotherapy (principal); C50.212 Malignant neoplasm of upper-inner quadrant of left female breast; E05.00 Thyrotoxicosis with diffuse goiter without thyrotoxic crisis or storm; F17.210 Nicotine dependence, cigarettes, uncomplicated; Z17.0 Estrogen receptor positive status [ER+]; Z79.899 Other long term (current) drug therapy
CPT/HCPCS: 36415; 36591; 80048; 80053; 84443; 85025; 96367; 96375; 96413; 96417; 99213

== ENCOUNTER 2019-04-05 07:19 | Day surgery (SDC) | payer MEDICAID ==
[~2019-04-05] VITALS: Ht 167.6 cm; Wt 73.9 kg
[2019-04-05] VITALS (8 sets, daily range): BP systolic 93–152; BP diastolic 57–96
[~2019-04-05 07:19] MED LIST changes: -FAMOTIDINE 20MG/2ML IV (CANCER CTR) IV SCH; -FOSAPREPITANT DIMEGLUMINE 150 MG in NS (IVPB) CANCER CENTER ONLY 150 ML IV SCH; -NS IV 1000 ML (CANCER CTR) IV SCH; -NS IV SCH; -PALONOSETRON HCL 0.25 MG, DEXAMETHASONE INJECTION 10 MG in NS (IVPB) CANCER CENTER 50 ML IV SCH; +PANT20TA3 PO; -PERTUZUMAB 420 MG in NS (IVPB) CANCER CENTER 250 ML IV SCH; -TRASTUZUMAB IV SCH; -diphenhydrAMINE 25 MG TAB (BENADRYL) CANCER CENTER PO SCH
--- OUTSIDE RECORDS SUMMARY | 2019-04-05 07:25 | XMS REPORT ---
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 Active 629332739 Problem Graves' disease E05.00 Active 856716417 Problem Goiter E04.9 Active 5305449 Problem Thrombocytopenia D69.6 Active 991758296 Problem Dysfunctional uterine bleeding N93.8 Active 38599282 ALLERGIES No Information ENCOUNTERS Encounter Location Date Diagnosis [facility] [address] [address] Nov, Hyperthyroidism E05.90 [facility] [address] [address] Nov, Hyperthyroidism E05.90 [facility] [address] [id number] Oct, Caries K02.9 and Dental examination Z01.20 [facility] [address] [id number] Oct, Caries K02.9 [facility] [id number] [place] [id number] Oct, Dental examination Z01.20 and Caries K02.9 [facility] [address] [address] Oct, 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, 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 and Viral upper respiratory tract infection J06.9 [facility] [address] [address] Oct, [facility] [address] [place] [phone] Sep, [place] [id number] [place] [phone] Sep, Left breast lump N63.20 [place] [id number] [place] [address] Sep, Screening for cervical cancer Z12.4 ; Screening for breast cancer Z12.31 ; Perimenopausal vasomotor symptoms N95.1 ; Dysfunctional uterine bleeding N93.8 ; Screening examination for sexually transmitted disease Z11.3 and Left breast lump N63.20 [place] [id number] [place] [phone] Jun, Thrombocytopenia D69.6 [place] [id number] [place] [phone] Jun, Thrombocytopenia D69.6 [facility] [id number] [place] [id number] May, Dental examination Z01.20 [facility] [id number] [place] [id number] Apr, Dental examination Z01.20 and Dental caries K02.9 [place] [address] [place] [address] Mar, Thrombocytopenia D69.6 [place] [id number] [place] [phone] Mar, Hyperthyroidism E05.90 ; Goiter E04.9 ; Screening for diabetes mellitus Z13.1 and Screening for lipoid disorders Z13.220 [place] [address] [place] [phone] Feb, [place] [id number] [place] [phone] Feb, [place] [address] [place] [phone] 14 Feb, 2018 Subacute maxillary sinusitis J01.00 ; Seasonal allergic rhinitis, unspecified trigger J30.2 ; Post-nasal drainage R09.82 and Goiter E04.9 [facility] [id number] [place] [id number] 2015 No diagnosis on [place] I V71.09 [place] [id number] [place] [phone] 14 Dec, 2014 [place] [id number] [place] [phone] Dec, [place] [id number] [place] [phone] Sep, [place] [id number] [place] [phone] Sep, [place] [id number] [place] [phone] Mar, [place] [id number] [place] [phone] Mar, IMMUNIZATIONS No Known Immunizations SOCIAL HISTORY Never Assessed REASON FOR VISIT [facility] [place] PLAN OF CARE VITAL SIGNS MEDICATIONS Unknown Medications RESULTS No Results PROCEDURES No Known procedures INSTRUCTIONS MEDICATIONS ADMINISTERED No Known Medications MEDICAL (GENERAL) HISTORY Type Description Date Medical History Left eye trauma-age 14 Medical History Breast cancer-left breast Surgical History gallbladder removal 1999 Surgical History metal plates/screws in left ankle 2014 Surgical History tubal ligation Hospitalization History gallbladder removal 1999
--- OUTSIDE RECORDS SUMMARY | 2019-04-05 07:25 | XMS REPORT ---
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 Active 973700842 Problem Graves' disease E05.00 Active 595551629 Problem Goiter E04.9 Active 1291690 Problem Thrombocytopenia D69.6 Active 670711956 Problem Dysfunctional uterine bleeding N93.8 Active 90939026 ALLERGIES No Information ENCOUNTERS Encounter Location Date Diagnosis [facility] [address] [address] Nov, Hyperthyroidism E05.90 [facility] [address] [address] Nov, Hyperthyroidism E05.90 [facility] [address] [id number] Oct, Caries K02.9 and Dental examination Z01.20 [facility] [address] [id number] Oct, Caries K02.9 [facility] [id number] [place] [id number] Oct, Dental examination Z01.20 and Caries K02.9 [facility] [address] [address] Oct, 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, 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 and Viral upper respiratory tract infection J06.9 [facility] [address] [address] Oct, [facility] [address] [place] [phone] Sep, [place] [id number] [place] [phone] Sep, Left breast lump N63.20 [place] [id number] [place] [phone] Sep, Screening for cervical cancer Z12.4 ; Screening for breast cancer Z12.31 ; Perimenopausal vasomotor symptoms N95.1 ; Dysfunctional uterine bleeding N93.8 ; Screening examination for sexually transmitted disease Z11.3 and Left breast lump N63.20 [place] [id number] [place] [phone] Jun, Thrombocytopenia D69.6 [place] [id number] [place] [phone] Jun, Thrombocytopenia D69.6 [facility] [id number] [place] [id number] May, Dental examination Z01.20 [facility] [id number] [place] [address] [id number] Apr, Dental examination Z01.20 and Dental caries K02.9 [place] [address] [place] [phone] Mar, Thrombocytopenia D69.6 [place] [id number] [place] [phone] Mar, Hyperthyroidism E05.90 ; Goiter E04.9 ; Screening for diabetes mellitus Z13.1 and Screening for lipoid disorders Z13.220 [place] [address] [place] [phone] Feb, [place] [address] [place] [phone] Feb, [place] [address] [place] [phone] 14 Feb, 2018 Subacute maxillary sinusitis J01.00 ; Seasonal allergic rhinitis, unspecified trigger J30.2 ; Post-nasal drainage R09.82 and Goiter E04.9 [facility] [id number] [place] [phone] 2015 No diagnosis on [place] I V71.09 [place] [id number] [place] [phone] 14 Dec, 2014 [place] [id number] [place] [phone] Dec, [place] [id number] [place] [phone] Sep, [place] [id number] [place] [phone] Sep, [place] [id number] [place] [phone] Mar, [place] [id number] [place] [phone] Mar, IMMUNIZATIONS No Known Immunizations SOCIAL HISTORY Never Assessed REASON FOR VISIT [facility] [place] CARE VITAL SIGNS MEDICATIONS Unknown [...]
--- OUTSIDE RECORDS SUMMARY | 2019-04-05 07:26 | XMS REPORT ---
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 Active 249478039 Problem Graves' disease E05.00 Active 866102913 Problem Goiter E04.9 Active 8167121 Problem Thrombocytopenia D69.6 Active 409439537 Problem Dysfunctional uterine bleeding N93.8 Active 78108177 ALLERGIES No Information ENCOUNTERS Encounter Location Date Diagnosis [facility] [address] [address] Nov, Hyperthyroidism E05.90 [facility] [address] [address] Nov, Hyperthyroidism E05.90 [facility] [address] [id number] Oct, Caries K02.9 and Dental examination Z01.20 [facility] [address] [id number] Oct, Caries K02.9 [facility] [id number] [place] [id number] Oct, Dental examination Z01.20 and Caries K02.9 [facility] [address] [address] Oct, 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, 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 and Viral upper respiratory tract infection J06.9 [facility] [address] [address] Oct, [facility] [address] [place] [address] Sep, [place] [id number] [place] [address] Sep, Left breast lump N63.20 [place] [id number] [place] [address] Sep, Screening for cervical cancer Z12.4 ; Screening for breast cancer Z12.31 ; Perimenopausal vasomotor symptoms N95.1 ; Dysfunctional uterine bleeding N93.8 ; Screening examination for sexually transmitted disease Z11.3 and Left breast lump N63.20 [place] [id number] [place] [address] Jun, Thrombocytopenia D69.6 [place] [id number] [place] [phone] Jun, Thrombocytopenia D69.6 [facility] [id number] [place] [id number] May, Dental examination Z01.20 [facility] [id number] [place] [id number] Apr, Dental examination Z01.20 and Dental caries K02.9 [place] [address] [place] [address] Mar, Thrombocytopenia D69.6 [place] [id number] [place] [address] Mar, Hyperthyroidism E05.90 ; Goiter E04.9 ; Screening for diabetes mellitus Z13.1 and Screening for lipoid disorders Z13.220 [place] [address] [place] [phone] Feb, [place] [address] [place] [address] Feb, [place] [address] [address] 14 Feb, 2018 Subacute maxillary sinusitis J01.00 ; Seasonal allergic rhinitis, unspecified trigger J30.2 ; Post-nasal drainage R09.82 and Goiter E04.9 [place] [address] [address] 2015 No diagnosis on [place] I V71.09 [place] [id number] [place] [phone] 14 Dec, 2014 [place] [id number] [place] [phone] Dec, [place] [id number] [place] [phone] Sep, [place] [id number] [place] [phone] Sep, [place] [id number] [place] [phone] Mar, [place] [address] [address] Mar, IMMUNIZATIONS No Known Immunizations SOCIAL HISTORY Never Assessed REASON FOR VISIT [facility] [place] PLAN OF CARE VITAL SIGNS MEDICATIONS Medication Instructions Dosage Frequency Start Date End Date Duration Status Phenergan 25 mg 1 tablet by Oral route every 6 hours Sep, Active Permethrin 5 % 1 Application by Topical route 1 time per dayapply from neck to toes. Avoid mucous membranes. Shower off in 10 hours Mar, Active Zithromax Z-Luis Enrique 250 mg 2 tablet by Oral route 1 time per dayon day 1 then take 1 tab daily on days 2-5 Sep, Active RESULTS No Results PROCEDURES No Known procedures INSTRUCTIONS MEDICATIONS ADMINISTERED No Known Medications MEDICAL (GENERAL) HISTORY Type Description Date Medical History Left eye trauma-age 14 Medical History Breast cancer-left breast Surgical History gallbladder removal 1999 Surgical History metal plates/screws in left ankle 2014 Surgical History tubal ligation Hospitalization History gallbladder removal 1999
--- OUTSIDE RECORDS SUMMARY | 2019-04-05 07:27 | XMS REPORT | Continuity of Care Document ---
Author Organization Unknown Address Unknown Phone Unavailable Allergies Active Description Code Type Severity Reaction Onset Reported/Identified Relationship to Patient Clinical Status Yes No Known Drug Allergies [id number] Drug Allergy Unknown N/A 03/09/2011 Yes No Known Allergies NKA Miscellaneous Allergy Unknown N/A 10/17/2013 Medications There is no data. Problems Date Dx Coded Attending Type Code Diagnosis Diagnosed By 03/17/2012 LÓPEZ NUNEZ DO 133.0 SCABIES 03/17/2012 LÓPEZ NUNEZ DO 719.47 PAIN IN JOINT INVOLVING ANKLE AND FOOT 09/13/2012 LÓPEZ NUNEZ DO 461.9 SINUSITIS ACUTE 09/13/2012 LÓPEZ NUNEZ DO 787.91 DIARRHEA 02/23/2018 ANGELITA MUSA Ot E04.9 NONTOXIC GOITER, UNSPECIFIED 03/14/2018 ANGELITA MUSA Ot E04.9 NONTOXIC GOITER, UNSPECIFIED 09/29/2018 TRAN NOGUEIRA APRN Ot N63.22 UNSPECIFIED LUMP IN THE LEFT BREAST, UPP 09/29/2018 TRAN NOGUEIRA APRN Ot N95.1 MENOPAUSAL AND FEMALE CLIMACTERIC STATES 10/14/2018 TRAN NOGUEIRA APRN Ot N63.22 UNSPECIFIED LUMP IN THE LEFT BREAST, UPP 10/14/2018 TRAN NOGUEIRA APRN Ot N95.1 MENOPAUSAL AND FEMALE CLIMACTERIC STATES 10/14/2018 ANGELITA MUSA Ot E04.9 NONTOXIC GOITER, UNSPECIFIED 10/14/2018 TRAN NOGUEIRA APRN Ot N63.22 UNSPECIFIED LUMP IN THE LEFT BREAST, UPP 10/14/2018 TRAN NOGUEIRA APRN Ot N95.1 MENOPAUSAL AND FEMALE CLIMACTERIC STATES 10/18/2018 SALUD GAXIOLA, RUSTY Ot C50.212 MALIG NEOPLASM OF UPPER-INNER QUADRANT [...] 10/26/2018 RUSTY BRANNON MD Ot Z79.899 OTHER BARKING MACHINE FEEDER (CURRENT) DRUG THERAPY 10/28/2018 TRAN NOGUEIRA APRN [...] Ot Z01.818 ENCOUNTER FOR OTHER PREPROCEDURAL EXAMIN 11/03/2018 MAURICIO RANKIN DO Ot Z01.818 ENCOUNTER FOR OTHER PREPROCEDURAL EXAMIN 11/04/2018 MAURICIO RANKIN DO Ot Z01.818 ENCOUNTER FOR OTHER PREPROCEDURAL EXAMIN 11/10/2018 MAURICIO RANKIN DO Ot C50.912 MALIGNANT NEOPLASM OF UNSPECIFIED SITE O 11/10/2018 MAURICIO RANKIN DO Ot F17.210 NICOTINE DEPENDENCE, CIGARETTES, UNCOMPL 11/10[facility] ESSENTIAL (PRIMARY) HYPERTENSION 11/10/2018 [facility] Ot Z11.2 ENCOUNTER FOR SCREENING FOR OTHER BACTER 11/10/2018 [facility] MAURICIO D Ot Z79.899 OTHER BARKING MACHINE FEEDER (CURRENT) DRUG THERAPY 11/14/2018 [facility] MAURICIO D Ot C50.912 MALIGNANT NEOPLASM OF UNSPECIFIED SITE O 11/14/2018 [facility] Que[facility] Ot F17.210 NICOTINE DEPENDENCE, CIGARETTES, UNCOMPL 11/14/2018 [facility] Ot I10 ESSENTIAL (PRIMARY) HYPERTENSION 11/14/2018 [facility] Ot Z11.2 ENCOUNTER FOR SCREENING FOR OTHER BACTER 11/14/2018 [facility] MAURICIO D Ot Z79.899 OTHER [facility] (CURRENT) DRUG THERAPY 11/15/2018 RUSTY BRANNON MD Ot 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 11/15/2018 RUSTY BRANNON MD Ot E05.00 THYROTOXICOSIS W DIFFUSE GOITER W/O THYR 11/15/2018 RUSTY BRANNON MD Ot F17.210 NICOTINE DEPENDENCE, CIGARETTES, UNCOMPL 11/15/2018 RUSTY BRANNON MD Ot Z17.0 ESTROGEN RECEPTOR POSITIVE STATUS [ER+] 11/15/2018 RUSTY BRANNON MD Ot Z79.899 OTHER [facility] (CURRENT) DRUG THERAPY 11/15/2018 RUSTY BRANNON MD Ot 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 11/15/2018 RUSTY BRANNON MD Ot Z51.81 ENCOUNTER FOR THERAPEUTIC DRUG LEVEL MON 11/15/2018 RUSTY BRANNON MD Ot Z79.899 OTHER [facility] (CURRENT) DRUG THERAPY 12/22/2018 RUSTY BRANNON MD Ot 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 12/22/2018 RUSTY BRANNON MD Ot E05.00 THYROTOXICOSIS W DIFFUSE GOITER W/O THYR 12/22/2018 RUSTY BRANNON MD Ot F17.210 NICOTINE DEPENDENCE, CIGARETTES, UNCOMPL 12/22/2018 XUN MD, KING-MARIANGEL Ot Z17.0 ESTROGEN RECEPTOR POSITIVE STATUS [ER+] 12/22/2018 RUSTY BRANNON MD Ot Z79.899 OTHER BARKING MACHINE FEEDER (CURRENT) DRUG THERAPY 12/27/2018 RUSTY BRANNON MD Ot 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 12/27/2018 RUSTY BRANNON MD Ot E05.00 THYROTOXICOSIS W DIFFUSE GOITER W/O THYR 12/27/2018 RUSTY BRANNON MD, Ot F17.210 NICOTINE DEPENDENCE, CIGARETTES, UNCOMPL 12/27/2018 RUSTY BRANNON MD Ot Z17.0 ESTROGEN RECEPTOR POSITIVE STATUS [ER+] 12/27/2018 RUSTY BRANNON MD, Ot Z79.899 OTHER [facility] (CURRENT) DRUG THERAPY 01/10/2019 ANGELITA MUSA DIETARY WORKER Ot E04.9 NONTOXIC GOITER, UNSPECIFIED 01/10/2019 TRAN NOGUEIRA APRN Ot N63.22 UNSPECIFIED LUMP IN THE LEFT BREAST, UPP 01/10/2019 TRAN NOGUEIRA APRN Ot N95.1 MENOPAUSAL AND FEMALE CLIMACTERIC STATES 01/10/2019 TRAN NOGUEIRA APRN Ot C50.912 MALIGNANT NEOPLASM OF UNSPECIFIED SITE O 01/10/2019 RUSTY BRANNON MD, Ot 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 01/10/2019 RUSTY BRANNON MD Ot E05.00 THYROTOXICOSIS W DIFFUSE GOITER W/O THYR 01/10/2019 RUSTY BRANNON MD, Ot F17.210 NICOTINE DEPENDENCE, CIGARETTES, UNCOMPL 01/10/2019 RUSTY BRANNON MD Ot Z17.0 ESTROGEN RECEPTOR POSITIVE STATUS [ER+] 01/10/2019 RUSTY BRANNON MD, Ot Z79.899 OTHER [facility] (CURRENT) DRUG THERAPY 01/10/2019 RUSTY BRANNON MD Ot 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 01/10/2019 RUSTY BRANNON MD Ot E04.9 NONTOXIC GOITER, UNSPECIFIED 01/10/2019 RUSTY BRANNON MD Ot J98.4 OTHER DISORDERS OF LUNG 01/10/2019 RUSTY BRANNON MD Ot K76.0 FATTY (CHANGE OF) LIVER, NOT ELSEWHERE C 01/10/2019 RUSTY BRANNON MD Ot Z90.49 ACQUIRED ABSENCE OF OTHER SPECIFIED PART 01/10/2019 RUSTY BRANNON MD, Ot 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 01/10/2019 RUSTY BRANNON MD, Ot Z51.81 ENCOUNTER FOR THERAPEUTIC DRUG LEVEL MON 01/10/2019 RUSTY BRANNON MD, Ot Z79.899 OTHER [facility] (CURRENT) DRUG THERAPY 01/12/2019 RUSTY BRANNON MD, Ot 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 01/12/2019 RUSTY BRANNON MD Ot E05.00 THYROTOXICOSIS W DIFFUSE GOITER W/O THYR 01/12/2019 RUSTY BRANNON MD Ot F17.210 NICOTINE DEPENDENCE, CIGARETTES, UNCOMPL 01/12/2019 RUSTY BRANNON MD Ot Z17.0 ESTROGEN RECEPTOR POSITIVE STATUS [ER+] 01/12/2019 RUSTY BRANNON MD, Ot Z79.899 OTHER [facility] (CURRENT) DRUG THERAPY 01/16/2019 RUSTY BRANNON MD, Ot 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 01/16/2019 RUSTY BRANNON MD Ot E05.00 THYROTOXICOSIS W DIFFUSE GOITER W/O THYR 01/16/2019 RUSTY BRANNON MD Ot F17.210 NICOTINE DEPENDENCE, CIGARETTES, UNCOMPL 01/16/2019 RUSTY BRANNON MD Ot Z17.0 ESTROGEN RECEPTOR POSITIVE STATUS [ER+] 01/16/2019 RUSTY BRANNON MD, Ot Z79.899 OTHER BARKING MACHINE FEEDER (CURRENT) DRUG THERAPY 01/17/2019 RUSTY BRANNON MD, Ot 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 01/17/2019 RUSTY BRANNON MD Ot E05.00 THYROTOXICOSIS W DIFFUSE GOITER W/O THYR 01/17/2019 RUSTY BRANNON MD Ot F17.210 NICOTINE DEPENDENCE, CIGARETTES, UNCOMPL 01/17/2019 RUSTY BRANNON MD Ot Z17.0 ESTROGEN RECEPTOR POSITIVE STATUS [ER+] 01/17/2019 RUSTY BRANNON MD, Ot Z79.899 OTHER [facility] (CURRENT) DRUG THERAPY 01/19/2019 RUSTY BRANNON MD, Ot 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 01/19/2019 RUSTY BRANNON MD Ot E05.00 THYROTOXICOSIS W DIFFUSE GOITER W/O THYR 01/19/2019 RUSTY BRANNON MD Ot F17.210 NICOTINE DEPENDENCE, CIGARETTES, UNCOMPL 01/19/2019 RUSTY BRANNON MD, Ot Z17.0 ESTROGEN RECEPTOR POSITIVE STATUS [ER+] 01/19/2019 RUSTY BRANNON MD, Ot Z79.899 OTHER BARKING MACHINE FEEDER (CURRENT) DRUG THERAPY 01/26/2019 LINDA MALHOTRA APRN Ot E05.90 THYROTOXICOSIS, UNSP WITHOUT THYROTOXIC 01/31/2019 GINNY MOLINA DO Ot N92.6 IRREGULAR MENSTRUATION, UNSPECIFIED 01/31/2019 GINNY MOLINA DO Ot Z80.41 FAMILY HISTORY OF MALIGNANT NEOPLASM OF 01/31/2019 GINNY MOLINA DO Ot Z85.3 PERSONAL HISTORY OF MALIGNANT NEOPLASM O 01/31/2019 LINDA MALHOTRA APRN Ot E05.90 THYROTOXICOSIS, UNSP WITHOUT THYROTOXIC 02/07/2019 RUSTY BRANNON MD, Ot 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 02/07/2019 RUSTY BRANNON MD Ot E05.00 THYROTOXICOSIS W DIFFUSE GOITER W/O THYR 02/07/2019 RUSTY BRANNON MD Ot F17.210 NICOTINE DEPENDENCE, CIGARETTES, UNCOMPL 02/07/2019 RUSTY BRANNON MD, Ot Z17.0 ESTROGEN RECEPTOR POSITIVE STATUS [ER+] 02/07/2019 RUSTY BRANNON MD Ot Z51.11 ENCOUNTER FOR ANTINEOPLASTIC CHEMOTHERAP 02/07/2019 RUSTY BRANNON MD, Ot Z79.899 OTHER [facility] (CURRENT) DRUG THERAPY 02/13/2019 RUSTY BRANNON MD, Ot 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 02/13/2019 RUSTY BRANNON MD Ot E05.00 THYROTOXICOSIS W DIFFUSE GOITER W/O THYR 02/13/2019 RUSTY BRANNON MD Ot F17.210 NICOTINE DEPENDENCE, CIGARETTES, UNCOMPL 02/13/2019 RUSTY BRANNON MD, Ot Z17.0 ESTROGEN RECEPTOR POSITIVE STATUS [ER+] 02/13/2019 RUSTY BRANNON MD Ot Z51.11 ENCOUNTER FOR ANTINEOPLASTIC CHEMOTHERAP 02/13/2019 RUSTY BRANNON MD, Ot Z79.899 OTHER [facility] (CURRENT) DRUG THERAPY 02/13/2019 ANGELITA MUSA DIETARY WORKER Ot E04.9 NONTOXIC GOITER, UNSPECIFIED 02/13/2019 TRAN NOGUEIRA APRN Ot N63.22 UNSPECIFIED LUMP IN THE LEFT BREAST, UPP 02/13/2019 TRAN NOGUEIRA APRN Ot N95.1 MENOPAUSAL AND FEMALE CLIMACTERIC STATES 02/13/2019 TRAN NOGUEIRA APRN Ot C50.912 MALIGNANT NEOPLASM OF UNSPECIFIED SITE O 02/13/2019 RUSTY BRANNON MD, Ot 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 02/13/2019 RUSTY BRANNON MD Ot E04.9 NONTOXIC GOITER, UNSPECIFIED 02/13/2019 RUSTY BRANNON MD Ot J98.4 OTHER DISORDERS OF LUNG 02/13/2019 RUSTY BRANNON MD Ot K76.0 FATTY (CHANGE OF) LIVER, NOT ELSEWHERE C 02/13/2019 RUSTY BRANNON MD Ot Z90.49 ACQUIRED ABSENCE OF OTHER SPECIFIED PART 02/13/2019 RUSTY BRANNON MD, Ot 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 02/13/2019 RUSTY BRANNON MD Ot Z51.81 ENCOUNTER FOR THERAPEUTIC DRUG LEVEL MON 02/13/2019 RUSTY BRANNON MD, Ot Z79.899 OTHER BARKING MACHINE FEEDER (CURRENT) DRUG THERAPY 02/13/2019 GINNY MOLINA DO Ot N92.6 IRREGULAR MENSTRUATION, UNSPECIFIED 02/13/2019 GINNY MOLINA DO Ot Z80.41 FAMILY HISTORY OF MALIGNANT NEOPLASM OF 02/13/2019 GINNY MOLINA DO Ot Z85.3 PERSONAL HISTORY OF MALIGNANT NEOPLASM O 02/13/2019 LINDA MALHOTRA APRN Ot E05.90 THYROTOXICOSIS, UNSP WITHOUT THYROTOXIC 02/13/2019 RUSTY BRANNON MD Ot 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 02/13/2019 XUN MD, KING-MARIANGEL Ot E05.00 THYROTOXICOSIS W DIFFUSE GOITER W/O THYR 02/13/2019 RUSTY BRANNON MD Ot F17.210 NICOTINE DEPENDENCE, CIGARETTES, UNCOMPL 02/13/2019 RUSTY BRANNON MD Ot Z17.0 ESTROGEN RECEPTOR POSITIVE STATUS [ER+] 02/13/2019 RUSTY BRANNON MD Ot Z51.11 ENCOUNTER FOR ANTINEOPLASTIC CHEMOTHERAP 02/13/2019 RUSTY BRANNON MD Ot Z79.899 OTHER [facility] (CURRENT) DRUG THERAPY 02/13/2019 LINDA MALHOTRA APRN Ot E05.90 THYROTOXICOSIS, UNSP WITHOUT THYROTOXIC 02/13/2019 RUSTY BRANNON MD Ot 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 02/13/2019 RUSTY BRANNON MD Ot E05.00 THYROTOXICOSIS W DIFFUSE GOITER W/O THYR 02/13/2019 RUSTY BRANNON MD Ot F17.210 NICOTINE DEPENDENCE, CIGARETTES, UNCOMPL 02/13/2019 RUSTY BRANNON MD Ot Z17.0 ESTROGEN RECEPTOR POSITIVE STATUS [ER+] 02/13/2019 RUSTY BRANNON MD Ot Z51.11 ENCOUNTER FOR ANTINEOPLASTIC CHEMOTHERAP 02/13/2019 RUSTY BRANNON MD, Ot Z79.899 OTHER [facility] (CURRENT) DRUG THERAPY 02/14/2019 LINDA MALHOTRA APRN Ot E05.90 THYROTOXICOSIS, UNSP WITHOUT THYROTOXIC 02/16/2019 LINDA MALHOTRA APRN Ot E05.90 THYROTOXICOSIS, UNSP WITHOUT THYROTOXIC 02/24/2019 RUSTY BRANNON MD Ot 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 02/24/2019 RUSTY BRANNON MD Ot E05.00 THYROTOXICOSIS W DIFFUSE GOITER W/O THYR 02/24/2019 RUSTY BRANNON MD Ot F17.210 NICOTINE DEPENDENCE, CIGARETTES, UNCOMPL 02/24/2019 RUSTY BRANNON MD Ot Z17.0 ESTROGEN RECEPTOR POSITIVE STATUS [ER+] 02/24/2019 RUSTY BRANNON MD Ot Z51.11 ENCOUNTER FOR ANTINEOPLASTIC CHEMOTHERAP 02/24/2019 RUSTY BRANNON MD Ot Z79.899 OTHER [facility] (CURRENT) DRUG THERAPY 03/02/2019 LINDA MALHOTRA APRN Ot E05.90 THYROTOXICOSIS, UNSP WITHOUT THYROTOXIC 03/20/2019 LENCHO ANGELITA Donn DIETARY WORKER Ot E04.9 NONTOXIC GOITER, UNSPECIFIED 03/20/2019 TRAN NOGUEIRA APRN Ot N63.22 UNSPECIFIED LUMP IN THE LEFT BREAST, UPP 03/20/2019 TRAN NOGUEIRA APRN Ot N95.1 MENOPAUSAL AND FEMALE CLIMACTERIC STATES 03/20/2019 TRAN NOGUEIRA APRN Ot C50.912 MALIGNANT NEOPLASM OF UNSPECIFIED SITE O 03/20/2019 RUSTY BRANNON MD, Ot 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 03/20/2019 RUSTY BRANNON MD Ot E04.9 NONTOXIC GOITER, UNSPECIFIED 03/20/2019 RUSTY BRANNON MD Ot J98.4 OTHER DISORDERS OF LUNG 03/20/2019 RUSTY BRANNON MD Ot K76.0 FATTY (CHANGE OF) LIVER, NOT ELSEWHERE C 03/20/2019 RUSTY BRANNON MD Ot Z90.49 ACQUIRED ABSENCE OF OTHER SPECIFIED PART 03/20/2019 RUSYT BRANNON MD, Ot 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 03/20/2019 RUSTY BRANNON MD, Ot Z51.81 ENCOUNTER FOR THERAPEUTIC DRUG LEVEL MON 03/20/2019 RUSTY BRANNON MD, Ot Z79.899 OTHER [facility] (CURRENT) DRUG THERAPY 03/20/2019 GINNY MOLINA DO Ot N92.6 IRREGULAR MENSTRUATION, UNSPECIFIED 03/20/2019 GINNY MOLINA DO Ot Z80.41 FAMILY HISTORY OF MALIGNANT NEOPLASM OF 03/20/2019 GINNY MOLINA DO Ot Z85.3 PERSONAL HISTORY OF MALIGNANT NEOPLASM O 03/20/2019 LINDA MALHOTRA APRN Ot E05.90 THYROTOXICOSIS, UNSP WITHOUT THYROTOXIC 03/20/2019 RUSTY BRANNON MD, Ot 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 03/20/2019 RUSTY BRANNON MD Ot E05.00 THYROTOXICOSIS W DIFFUSE GOITER W/O THYR 03/20/2019 RUSTY BRANNON MD Ot F17.210 NICOTINE DEPENDENCE, CIGARETTES, UNCOMPL 03/20/2019 RUSTY BRANNON MD Ot Z17.0 ESTROGEN RECEPTOR POSITIVE STATUS [ER+] 03/20/2019 RUSTY BRANNON MD Ot Z51.11 ENCOUNTER FOR ANTINEOPLASTIC CHEMOTHERAP 03/20/2019 RUSTY BRANNON MD Ot Z79.899 OTHER BARKING MACHINE FEEDER (CURRENT) DRUG THERAPY 03/20/2019 LINDA MALHOTRA STRIPPER SOFT PLASTIC Ot E05.90 THYROTOXICOSIS, UNSP WITHOUT THYROTOXIC 03/20/2019 LINDA MALHOTRA STRIPPER SOFT PLASTIC Ot E05.90 THYROTOXICOSIS, UNSP WITHOUT THYROTOXIC 03/24/2019 HAFSA KING Ot 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 03/24/2019 HAFSA KING Ot I36.1 NONRHEUMATIC TRICUSPID (VALVE) INSUFFICI 03/24/2019 HAFSA KING Ot I51.7 CARDIOMEGALY 03/24/2019 HAFSA KING Ot M79.89 OTHER SPECIFIED SOFT TISSUE DISORDERS 03/24/2019 HAFSA KINGP Ot T88.7XXA UNSP ADVERSE EFFECT OF DRUG OR MEDICAMEN 03/28/2019 MAURICIO RANKIN DO Ot Z01.818 ENCOUNTER FOR [...] 12.4 fL 7.5-12.5 ABSOLUTE NEUTROPHILS 1856 cells/uL 4667-3438 ABSOLUTE LYMPHOCYTES 2545 cells/uL 850-3900 ABSOLUTE MONOCYTES [...] 12.8 fL 7.5-12.5 ABSOLUTE NEUTROPHILS 2472 cells/uL 8977-1642 ABSOLUTE LYMPHOCYTES 2803 cells/uL 850-3900 ABSOLUTE MONOCYTES 537 cells/uL 200-950 ABSOLUTE EOSINOPHILS 71 cells/uL 15-500 ABSOLUTE BASOPHILS 18 cells/uL 0-200 NEUTROPHILS 41.9 % NRG LYMPHOCYTES 47.5 % NRG MONOCYTES 9.1 % NRG EOSINOPHILS 1.2 % NRG BASOPHILS 0.3 % NRG T4 FREE - 11/07/18 15:10 T4, FREE 2.3 ng/dL 0.8-1.8 T3 TOTAL - 11/07/18 15:10 T3, TOTAL 328 ng/dL 76-181 Urine beta human chorionic gonadotropin (hCG) measurement - 11/10/18 06:10 Urine beta human chorionic gonadotropin (hCG) measurement NEGATIVE NEGATIVE Methicillin resistant Staphylococcus aureus (MRSA) screening culture - 11/10/18 06:10 Methicillin resistant Staphylococcus aureus (MRSA) screening culture NEG NRG Complete blood count (CBC) with automated white blood cell (WBC) differential - 11/15/18 10:50 Blood leukocytes automated count (number/volume) 9.0 10*3/uL 4.3-11.0 Blood erythrocytes automated count (number/volume) 4.83 10*6/uL 4.35-5.85 Venous blood hemoglobin measurement (mass/volume) 12.9 g/dL 11.5-16.0 Blood hematocrit (volume fraction) 38 % 35-52 Automated erythrocyte mean corpuscular volume 79 [foz_us] 80-99 Automated erythrocyte mean corpuscular hemoglobin (mass per erythrocyte) 27 pg 25-34 Automated erythrocyte mean corpuscular hemoglobin concentration measurement (mass/volume) 34 g/dL 32-36 Automated erythrocyte distribution width ratio 13.5 % 10.0- 14.5 Automated blood platelet count (count/volume) 151 10*3/uL 130-400 Automated blood platelet mean volume measurement 12.2 [foz_us] 7.4-10.4 Automated blood neutrophils/100 leukocytes 85 % 42-75 Automated blood lymphocytes/100 leukocytes 10 % 12-44 Blood monocytes/100 leukocytes 6 % 0-12 Automated blood eosinophils/100 leukocytes 0 % 0-10 Automated blood basophils/100 leukocytes 0 % 0-10 Blood neutrophils automated count (number/volume) 7.6 10*3 1.8-7.8 Blood lymphocytes automated count (number/volume) 0.9 10*3 1.0-4.0 Blood monocytes automated count (number/volume) 0.5 10*3 0.0- 1.0 Automated eosinophil count 0.0 10*3/uL 0.0-0.3 Automated blood basophil count (count/volume) 0.0 10*3/uL 0.0-0.1 Comprehensive metabolic panel - 11/15/18 10:50 Serum or plasma sodium measurement (moles/volume) 136 mmol/L 135-145 Serum or plasma potassium measurement (moles/volume) 3.7 mmol/L 3.6-5.0 Serum or plasma chloride measurement (moles/volume) 107 mmol/L 98-107 Carbon dioxide 19 mmol/L 21-32 Serum or plasma anion gap determination (moles/volume) 10 mmol/L 5-14 Serum or plasma urea nitrogen measurement (mass/volume) 15 mg/dL 7-18 Serum or plasma creatinine measurement (mass/volume) 0.61 mg/dL 0.60-1.30 Serum or plasma urea nitrogen/creatinine mass ratio 25 NRG Serum or plasma creatinine measurement with calculation of estimated glomerular filtration rate > NRG Serum or plasma glucose measurement (mass/volume) 234 mg/dL 70-105 Serum or plasma calcium measurement (mass/volume) 9.3 mg/dL 8.5-10.1 Serum or plasma total bilirubin measurement (mass/volume) 0.3 mg/dL 0.1-1.0 Serum or plasma alkaline phosphatase measurement (enzymatic activity/volume) 143 U/L 40-136 Serum or plasma aspartate aminotransferase measurement (enzymatic activity/volume) 19 U/L 5-34 Serum or plasma alanine aminotransferase measurement (enzymatic activity/volume) 23 U/L 0-55 Serum or plasma protein measurement (mass/volume) 7.0 g/dL 6.4-8.2 Serum or plasma albumin measurement (mass/volume) 3.7 g/dL 3.2-4.5 CALCIUM CORRECTED 9.5 mg/dL 8.5-10.1 T4 FREE - 03/08/19 15:59 T4, FREE 0.8 ng/dL 0.8-1.8 T3 TOTAL - 03/08/19 15:59 T3, TOTAL 69 ng/dL 76-181 TSH - 03/08/19 15:59 TSH 0.28 mIU/L NRG Complete blood count (CBC) with automated white blood cell (WBC) differential - 03/14/19 10:49 Blood leukocytes automated count (number/volume) 3.6 10*3/uL 4.3-11.0 Blood erythrocytes automated count (number/volume) 4.03 10*6/uL 4.35-5.85 Venous blood hemoglobin measurement (mass/volume) 11.8 g/dL 11.5-16.0 Blood hematocrit (volume fraction) 36 % 35-52 Automated erythrocyte mean corpuscular volume 89 [foz_us] 80-99 Automated erythrocyte mean corpuscular hemoglobin (mass per erythrocyte) 29 pg 25-34 Automated erythrocyte mean corpuscular hemoglobin concentration measurement (mass/volume) 33 g/dL 32-36 Automated erythrocyte distribution width ratio 15.9 % 10.0- 14.5 Automated blood platelet count (count/volume) 129 10*3/uL 130-400 Automated blood platelet mean volume measurement 10.9 [foz_us] 7.4-10.4 Automated blood neutrophils/100 leukocytes 31 % 42-75 Automated blood lymphocytes/100 leukocytes 51 % 12-44 Blood monocytes/100 leukocytes 17 % 0-12 Automated blood eosinophils/100 leukocytes 0 % 0-10 Automated blood basophils/100 leukocytes 0 % 0-10 Blood neutrophils automated count (number/volume) 1.1 10*3 1.8-7.8 Blood lymphocytes automated count (number/volume) 1.8 10*3 1.0-4.0 Blood monocytes automated count (number/volume) 0.6 10*3 0.0- 1.0 Automated eosinophil count 0.0 10*3/uL 0.0-0.3 Automated blood basophil count (count/volume) 0.0 10*3/uL 0.0-0.1 Whole blood basic metabolic panel - 03/14/19 10:49 Serum or plasma sodium measurement (moles/volume) 143 mmol/L 135-145 Serum or plasma potassium measurement (moles/volume) 3.1 mmol/L 3.6-5.0 Serum or plasma chloride measurement (moles/volume) 104 mmol/L 98-107 Carbon dioxide 27 mmol/L 21-32 Serum or plasma anion gap determination (moles/volume) 12 mmol/L 5-14 Serum or plasma urea nitrogen measurement (mass/volume) 5 mg/dL 7-18 Serum or plasma creatinine measurement (mass/volume) 0.65 mg/dL 0.60-1.30 Serum or plasma urea nitrogen/creatinine mass ratio 8 NRG Serum or plasma creatinine measurement with calculation of estimated glomerular filtration rate > NRG Serum or plasma glucose measurement (mass/volume) 116 mg/dL 70-105 Serum or plasma calcium measurement (mass/volume) 8.7 mg/dL 8.5-10.1 Encounters ACCT No. Visit Date/Time Discharge Status Pt. Type Provider Facility Loc./Unit Complaint [id number] 03/08/2019 15:15:00 03/08/2019 23:59:59 CLS Outpatient TRAN NOGUEIRA [facility] [place] [id number] 03/08/2019 15:15:00 Document Registration [id number] 11/07/2018 15:00:00 Document Registration [id number] 06/21/2018 15:40:00 Document Registration [id number] 03/14/2018 08:00:00 Document Registration [id number] 2018 11:40:00 Document Registration [id number] 03/28/2019 07:11:00 03/28/2019 09:57:00 DIS Outpatient MAURICIO RANKIN DO [facility] PREOP LEFT BREAST CANCER [id number] 03/21/2019 09:41:00 03/21/2019 23:59:59 CLS Outpatient RUSTY BRANNON MD [facility] ONC [id number] 03/20/2019 11:04:00 03/20/2019 23:59:59 CLS Outpatient HAFSA KING DIETARY WORKER [facility] CARD DRUG SIDE EFFECTS [id number] 03/16/2019 14:38:00 03/16/2019 23:59:59 CLS Outpatient HAFSA KING DIETARY WORKER [facility] RAD [id number] 02/13/2019 15:02:00 02/13/2019 23:59:59 CLS Outpatient LINDA MALHOTRA [employer]IP[employer]IC [facility] LAB [id number] 01/24/2019 09:48:00 01/24/2019 23:59:59 CLS Outpatient LINDA MALHOTRA [employer] [facility] LAB [id number] 01/10/2019 08:54:00 01/12/2019 00:01:00 DIS Outpatient RUSTY BRANNON MD [facility] ONC [id number] 01/11/2019 10:30:00 01/11/2019 23:59:59 CLS Outpatient GINNY MOLINA DO [facility] RAD ABN UTERINE BLEEDING [id number] 01/10/2019 08:57:00 01/10/2019 23:59:59 CLS Outpatient LINDA MALHOTRA STRIPPER SOFT PLASTIC [facility] LAB [id number] 11/10/2018 05:52:00 11/10/2018 11:35:00 DIS [facility] [id number] 11/03/2018 14:39:00 11/03/2018 14:46:00 DIS Outpatient MAURICIO RANKIN DO [facility] PREOP PORT PLACEMENT RIGHT SIDE [id number] 10/25/2018 13:45:00 10/25/2018 23:59:59 CLS Outpatient RUSTY BRANNON MD [facility] CARD CHEMOTHERAPY MANAGEMENT [id number] 10/18/2018 14:02:00 10/18/2018 23:59:59 CLS Outpatient RUSTY BRANNON MD [facility] RAD INFILTRATING DUCTAL CARCINOMA OF BREAST [id number] 10/10/2018 10:14:00 10/10/2018 23:59:59 CLS Outpatient TARN NOGUEIRA STRIPPER SOFT PLASTIC [facility] RAD LEFT BREAST LUMP [id number] 09/29/2018 14:03:00 09/29/2018 23:59:59 CLS Outpatient TRAN NOGUEIRA STRIPPER SOFT PLASTIC [facility] RAD LEFT BREAST LUMP [id number] 02/22/2018 10:18:00 02/22/2018 23:59:59 CLS Outpatient ANGELITA MUSA [facility] RAD GOITER [id number] 04/05/2019 08:30:00 PEN Preadmit MAURICIO RANKIN DO [facility] CARD LEFT BREAST CANCER [id number] 10/19/2013 12:18:00 10/19/2013 16:55:00 DIS Outpatient Marvel GAXIOLA, [facility] [id number] 10/18/2013 13:00:00 10/18/2013 23:59:59 CLS Outpatient Katie Lowe PA-C [facility] HMG.ORT [id number] 10/18/2013 14:23:00 10/18/2013 23:59:00 DIS Outpatient Marvel GAXIOLA, [facility] PREADMS [id number] 10/17/2013 15:15:00 10/17/2013 17:27:00 DIS Emergency Atul GAXIOLA, Chema Quevedo [facility] ER.FASTTRA [id number] 09/13/2012 11:04:00 09/13/2012 23:59:59 CLS Outpatient LÓPEZ NUNEZ DO
[2019-04-05] MEDS ORDERED: ceFAZolin 2 GM/50 ML NS 50 ML ONE (08:10)
[2019-04-05] MEDS ORDERED: LIDOCAINE 1% INJ 20 ML 20 ML VIAL INJ ONE (08:15)
[2019-04-05] MEDS ORDERED: LACTATED RINGERS 1,000 ML IV PRN (08:19)
[2019-04-05] MEDS ORDERED: ceFAZolin 2 GM/50 ML NS 50 ML IV ONE (08:30)
[2019-04-05] MEDS ORDERED: CATHETER FLUSH 10 ML SYR IV PRN (08:30)
--- NOTE | 2019-04-05 09:23 | Progress Note-Pre Operative ---
Pre-Operative Progress Note H&P Reviewed The H&P was reviewed, patient examined and no changes noted. Date Seen by Provider: Apr 05, 2019 Time Seen by Provider: 09:23 Date H&P Reviewed: Apr 05, 2019 Time H&P Reviewed: 09:23 Pre-Operative Diagnosis: left breast cancer MAURICIO RANKIN DO Apr 05, 2019 09:23
--- NOTE | 2019-04-05 09:38 | Diagnostic Imaging Report ---
Indication: Left breast carcinoma, status post chemotherapy. Patient status post hookwire placement. Correlation is made with the prior mammogram from 09/29/2018 and 10/10/2018. 2-D unilateral left CC and ML mammography was performed. Hookwire in the upper aspect of the left breast adjacent to the marker clip is seen. Previously noted mass is no longer visualized and this is consistent with significant response to therapy. Impression: Hookwire placement, as described. Dictated by: Dictated on workstation # [id number]
--- NOTE | 2019-04-05 10:04 | Diagnostic Imaging Report ---
Indication: Left breast carcinoma, status post chemotherapy. Patient presents for hookwire placement using ultrasound guidance. Patient was brought to the procedure room and placed on the table in the supine position. Ultrasound imaging of the left breast was performed and evaluated appropriate entry site. Skin of the left breast was then prepped and draped in the usual sterile fashion. A small amount of 1% lidocaine was utilized for local anesthesia. Previously noted mass at 11:30 location of the left breast 8 cm from the nipple has significantly decreased in size and has nearly completely resolved. Only minimal architectural distortion at this location is seen on today's study. Hookwire needle was advanced through this area of hypoechogenicity. Hookwire was deployed and the needle was removed. Hookwire was affixed to the patient's skin. Patient tolerated the procedure well. Impression: Ultrasound-guided hookwire placement in the region of the previously noted mass 11:30 location left breast, 8 cm from the nipple. Dictated by: Dictated on workstation # [id number]
[2019-04-05] MEDS ORDERED: SEVOFLURANE (ULTANE) 15 ML INHAL SOLN ONE (10:33)
[2019-04-05] MEDS ORDERED: ONDANSETRON 4 MG/2 ML (SDV) Z0FRAN ONE (10:33)
[2019-04-05] MEDS ORDERED: fentaNYL INJECTION 100 MCG/2 ML AMP ONE (10:33)
[2019-04-05] MEDS ORDERED: proPOfol 200 MG/20 ML (DIPRIVAN) VIAL IV ONE (10:33)
[2019-04-05] MEDS ORDERED: LIDOCAINE PF 2% 5 ML (XYLOCAINE) VIAL ONE (10:33)
[2019-04-05] MEDS ORDERED: MIDAZOLAM 2 MG/2 ML (VERSED) VIAL ONE (10:33)
[2019-04-05] MEDS ORDERED: DEXAMETHASONE 10 MG/ML (DECADRON) 1 ML VIAL ONE (10:33)
[2019-04-05] MEDS ORDERED: INDIGO CARMINE 8 MG/ML 5 ML AMP ONE (10:59)
[2019-04-05] MEDS ORDERED: BUP/EPI 0.5% 1:200,000 (MARCAINE) 10ML VIAL IJ ONE (10:59)
[2019-04-05] MEDS ORDERED: 0.9% SODIUM CHLORIDE PF INJ 20 ML VIAL ONE (11:05)
--- NOTE | 2019-04-05 11:39 | Diagnostic Imaging Report ---
INDICATION: Left breast carcinoma. 1.1 mCi technetium 99m sulfur colloid was injected in 4 separate aliquots into the left breast in a periareolar distribution. Imaging was then performed. There is some uptake in the left axilla corresponding to sentinel node. This was marked on the patient's skin. IMPRESSION: Left breast lymphoscintigraphy for identification of sentinel node, as described. Dictated by: Dictated on workstation # [id number]
[2019-04-05] MEDS ORDERED: HYDROmorphone 2 MG/ML VIAL (DILAUDID) ONE (12:14)
[2019-04-05] MEDS ORDERED: INDIGO CARMINE 8 MG/ML 5 ML AMP INJ ONE (12:30)
--- NOTE | 2019-04-05 13:23 | Progress Note-Post Operative ---
Post-Operative Progess Note Surgeon (s)/Microbiology Analyst (s) Surgeon MAURICIO RANKIN DO Microbiology Analyst: na Pre-Operative Diagnosis left breast cancer Post-Operative Diagnosis same Procedure & Operative Findings Date of Procedure 04/05/19 Procedure Performed/Findings left wire localized lumpectomy and sentinel node biopsy Anesthesia Type gen Estimated Blood Loss Estimated blood loss (mL): min Specimens/Packing Specimens Removed sentinel node, left breast lumpectomy 2 short sutures anterior, 1 short suture superior and 1 long suture lateral MAURICIO RANKIN DO Apr 05, 2019 13:23
[2019-04-05] MEDS ORDERED: ACHD5005 PO (13:24)
[2019-04-05] MEDS ORDERED: DOCU-143 PO (13:24)
--- NOTE | 2019-04-05 13:27 | Discharge Inst-Simple/Standard ---
Discharge Inst-Standard Discharge Medications New, Converted or Re-Newed RX: RX on Chart Patient Instructions/Follow Up Plan of Care/Instructions/FU: 2 weeks Lisa Activity as Tolerated: No Discharge Diet: Regular Diet Other Inst to Patient Follow up Appt: Make appointment for 2 week. Instructions: No lifting greater than 10 pounds. No strenuous activity. May shower in 24 hours, no tub bath or soaking. Use incentive spirometer at home as directed. No Smoking Continue to wear sports bra with gauze over incisions and change daily for compression and comfort. Skin/Wound Care: May remove bandages daily and change as above. You have special glue over incisions it will fall off on its own. Symptoms to Report: Appetite Changes, Extremity Discoloration, Numbness/Tingling, Swelling Increased, Bleeding Excessive, Eyesight Changes, Pain Increased, Urine Color Change, Constipation(Persistent), Fever over 101 degree F, Pain/Pressure in chest, Urinating Difficulty, Cough Up/Vomit Blood, Heart Beat Irreg/Pounding, Pain/Pressure in jaw, Vaginal Bleeding Increase, Cramps in feet or legs, Lightheadedness, Pain/Pressure in shoulder, Diarrhea(Persistent), Memory Changes Suddenly, Questions/Concerns, Weight gain consecutive days, Dizziness/Fainting, Nausea/Vomiting, Shortness of Breath, Weight gain over 2 pounds If questions or concerns contact your physician Or seek help at emergency department. MAURICIO RANKIN DO Apr 05, 2019 13:27
[2019-04-05] MEDS ORDERED: HYDROmorphone 2 MG/ML VIAL (DILAUDID) IV ONE (13:45)
[2019-04-05] MEDS ORDERED: ONDANSETRON 4 MG/2 ML (SDV) Z0FRAN IVP PRN (13:45)
--- NOTE | 2019-04-05 14:01 | Anesthesia-General Post-Op ---
General Patient Condition Mental Status/LOC: Same as Preop Cardiovascular: Satisfactory Nausea/Vomiting: Absent Respiratory: Satisfactory Pain: Controlled Complications: Absent Post Op Complications Complications None Follow Up Care/Instructions Patient Instructions None needed. Anesthesia/Patient Condition Patient Condition Patient is doing well, no complaints, stable vital signs, no apparent adverse anesthesia problems. MIHAI BURNS DO Apr 05, 2019 14:01
--- NOTE | 2019-04-05 14:23 | Diagnostic Imaging Report ---
INDICATION: Left breast carcinoma, status post lumpectomy. IMPRESSION: Specimen radiograph was submitted. The hook wire and the localizer clip were located within the specimen. Hook wire and a marker clip are located within the specimen. Dictated by: Dictated on workstation # [id number]
--- NOTE | 2019-04-05 18:26 | OPERATIVE REPORT ---
DATE OF SERVICE: 04/05/2019 PREOPERATIVE DIAGNOSIS: Left breast cancer. POSTOPERATIVE DIAGNOSIS: Left breast cancer. PROCEDURE: Left wire localized lumpectomy and sentinel node biopsy. SURGEON: George Gonzalez DO ANESTHESIA: General. ESTIMATED BLOOD LOSS: Minimal. COMPLICATIONS: None. INDICATIONS: The patient is a 49-year-old female diagnosed with left breast cancer. She was discussed risks and benefits of having left wire localized lumpectomy and sentinel node biopsy. She understands risks and benefits and wished to proceed with procedure. Consent was signed in the chart. The patient was taken to the operating suite. She was prepped and draped in sterile fashion. Timeout was performed. The sentinel node was performed first. Dye was injected around the nipple area and into the lymphatic pickup and massaged until for 10 minutes. The area was prepped and draped. A timeout was performed. The [place] counter was used to find the area of most intensity. A left axillary incision was made and cautery was used to dissect down through some of the subcutaneous tissue. The [place] counter was used to continue to isolate the area of dissection needed. The sentinel node was located. She is able to be grasped and dissected around and hemostasis was achieved when it was removed. The node with a count of 425. Then count on 10-second count was performed, which demonstrated 1863. No other lymph nodes were isolated using the [place] counter. No other nodes were palpable. Background count demonstrating 59. The wound was then irrigated with copious amounts of irrigation. Subcutaneous tissues were reapproximated using 3-0 Vicryl. Skin was then closed using 4-0 Vicryl. The axilla was then washed and dried and Skin Affix was placed over the incision. Attention was then taken to the wire localized lumpectomy. Local anesthetic was infiltrated around the breast. An incision was made and the wire was then dissected around all the way down to the pectoral fascia the breast tissue was removed, removing the wire and the clip was used, which was demonstrated a radiologically after removed. The area was then irrigated with copious amounts of irrigation. Hemostasis was achieved. The subcutaneous tissues were then reapproximated using 3-0 Vicryl. Subcutaneous tissues were then reapproximated using 3-0 Vicryl. Skin was then closed using 4-0 Monocryl in a running fashion. The breast was then washed and dried and Skin Affix was placed over the incisions. The area was washed and dried. Once Skin Affix was dried, sterile bandages that were compressing were applied. The patient tolerated the procedure well without any complications. She was taken to recovery room in stable condition. Job ID: [id number] DocumentID: [id number] Dictated Date: 04/05/2019 13:44:57 Garage Laborer Date: 04/05/2019 18:25:28 Dictated By: DO JASWANT DENNY
== END 2019-04-05 14:42 | disposition home or self-care (01) ==
LOC: CARD 07:19
PROVIDERS: ATTEND Surgery
DX: C50.912 Malignant neoplasm of unspecified site of left female breast (principal); E05.00 Thyrotoxicosis with diffuse goiter without thyrotoxic crisis or storm; M79.89 Other specified soft tissue disorders; F17.210 Nicotine dependence, cigarettes, uncomplicated; I10 Essential (primary) hypertension; K76.0 Fatty (change of) liver, not elsewhere classified; Z79.891 Long term (current) use of opiate analgesic; Z92.21 Personal history of antineoplastic chemotherapy; Z79.899 Other long term (current) drug therapy; Z80.9 Family history of malignant neoplasm, unspecified; Z83.6 Family history of other diseases of the respiratory system; Z83.49 Family history of other endocrine, nutritional and metabolic diseases; Z80.41 Family history of malignant neoplasm of ovary
CPT/HCPCS: 19285; 76098; 78195; 84703; 87081; 88307; 88342

== ENCOUNTER 2019-05-22 10:25 | Emergency (ER) | payer MEDICAID ==
[~2019-05-22] VITALS: Ht 167 cm; Wt 80.0 kg
[~2019-05-22 10:25] MED LIST changes: +DILTIAZEM 25 MG/5 ML INJ (CARDIZEM) VIAL ONE; +DOCU-143 PO; +NS IV 1000 ML 1,000 ML ONE
[2019-05-22] MEDS ORDERED: NS IV 1000 ML 1,000 ML IV SCH (10:34)
[2019-05-22 10:41] LABS: BASOPHILS % (AUTO) 0 % (0-10); EOSINOPHILS # (AUTO) 0.1 10^3/uL (0.0-0.3); EOSINOPHILS % (AUTO) 1 % (0-10); HEMATOCRIT 41 % (35-52); LYMPHOCYTES # (AUTO) 1.8 X 10^3 (1.0-4.0); LYMPHOCYTES % (AUTO) 19 % (12-44); MEAN CORPUSCULAR HEMOGLOBIN 30 PG (25-34); MEAN CORPUSCULAR HGB CONC 34 G/DL (32-36); MEAN CORPUSCULAR VOLUME 90 FL (80-99); MEAN PLATELET VOLUME 12.2 FL (7.4-10.4); MONOCYTES # (AUTO) 1.1 X 10^3 (0.0-1.0); MONOCYTES % (AUTO) 11 % (0-12); NEUTROPHILS # (AUTO) 6.7 X 10^3 (1.8-7.8); NEUTROPHILS % (AUTO) 69 % (42-75); PLATELET COUNT 120 10^3/uL (130-400); RED CELL DISTRIBUTION WIDTH 13.4 % (10.0-14.5); WHITE BLOOD COUNT 9.7 10^3/uL (4.3-11.0)
[2019-05-22] MEDS ORDERED: DILTIAZEM 25 MG/5 ML INJ (CARDIZEM) VIAL IVP ONE (10:45)
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
--- NOTE | 2019-05-22 11:04 | Diagnostic Imaging Report ---
CLINICAL INDICATION: Patient with trouble breathing today. EXAM: Portable chest x-ray, upright views. COMPARISON: Chest x-ray dated 11/10/2018. FINDINGS: An hruksq-f-Rxfy is again seen overlying the right chest with the tip in the mid to distal superior vena cava. Stable cardiomegaly with no significant pulmonary vascular congestion. There are slight low lung volumes compared to the prior study with mild bibasilar atelectasis. There is no pleural effusion or pneumothorax. There are degenerative spurs involving the thoracic spine. IMPRESSION: 1. There are interval slight low lung volumes with mild bibasilar atelectasis. Superimposed infiltrates cannot be completely excluded. 2. Stable cardiomegaly with no significant pulmonary vascular congestion. Dictated by: Dictated on workstation # [id number]
[2019-05-22 11:08] LABS: PROTHROMBIN TIME PATIENT 13.4 SEC (12.2-14.7)
[2019-05-22 11:09] LABS: ALANINE AMINOTRANSFERASE 15 U/L (0-55); ALBUMIN 3.8 GM/DL (3.2-4.5); ALKALINE PHOSPHATASE 167 U/L (40-136); BILIRUBIN,TOTAL 0.7 MG/DL (0.1-1.0); BUN/CREATININE RATIO 14; CARBON DIOXIDE 22 MMOL/L (21-32); CHLORIDE 105 MMOL/L (98-107); CREATINE KINASE 38 U/L (29-168); CREATININE SERUM 0.81 MG/DL (0.60-1.30); GFR ESTIMATED > 60; GLUCOSE 153 MG/DL (70-105); MAGNESIUM 1.3 MG/DL (1.6-2.4); POTASSIUM 3.7 MMOL/L (3.6-5.0); SODIUM 138 MMOL/L (135-145); TOTAL PROTEIN 6.3 GM/DL (6.4-8.2)
[2019-05-22 11:22] LABS: CREATINE KINASE MB 0.9 NG/ML (<6.6); TSH (THYROID ANALYZER) 0.09 UIU/ML (0.35-4.94)
[2019-05-22] MEDS ORDERED: NS IV 1000 ML 1,000 ML IV ONE ×2 (11:28→13:18)
[2019-05-22] MEDS ORDERED: MAGNESIUM 1 GM/100 ML IVPB 100 ML IV SCH (11:30)
[2019-05-22 11:56] LABS: FREE T4 (FREE THYROXINE) 0.76 NG/DL (0.70-1.48)
[2019-05-22] MEDS ORDERED: NS 100 ML (IVPB) BAG IV ONE (12:45)
[2019-05-22] MEDS ORDERED: IOHEXOL 350 MG/ML 100 ML (OMNIPAQUE 350) VIAL IV ONE (12:45)
[2019-05-22] MEDS ORDERED: HOLD METFORMIN - RECEIVED CONTRAST 20 ML VIAL IV SCH (12:45)
--- NOTE | 2019-05-22 13:12 | Diagnostic Imaging Report ---
PROCEDURE: CT angiography of the chest with contrast. TECHNIQUE: Multiple contiguous axial images were obtained through the chest after uneventful bolus administration of intravenous contrast. 3D reconstructed CTA MIP acquisitions were also performed. Auto Exposure Controls were utilized during the CT exam to meet ALARA standards for radiation dose reduction. INDICATION: Chest pain. The patient does have a history of radiation therapy and chemotherapy for breast carcinoma. Correlation is made with prior CT chest from 10/18/2018. FINDINGS: There is enlargement of left lobe of the thyroid gland, stable when compared with prior exam. The thoracic aorta is normal caliber. No dissection is seen. Central pulmonary arteries are widely patent. No filling defects are seen. Lobar branches appear to be patent. Segmental are suboptimal due to suboptimal opacification. There appear to be postsurgical changes in the left breast. There is a fluid collection approximately 6.9 x 3.6 cm, likely a postoperative seroma. No pericardial or pleural fluid is identified. No pulmonary infiltrates, nodules, or masses are seen. No axillary lymphadenopathy is identified. No definite internal mammary lymphadenopathy is seen. There are some prominent lymph nodes identified in the mediastinum. Prevascular lymph nodes and right paratracheal nodes are prominent. No hilar lymphadenopathy is seen. Upper abdomen is unremarkable. IMPRESSION: 1. No evidence of pulmonary embolism or thoracic aortic dissection. 2. Post therapeutic changes in the left breast with probable postoperative seroma. 3. Prominent lymph nodes in the mediastinum, largest solitary node approximately 18 mm x 13 mm in right paratracheal location, indeterminate. Continued follow-up is recommended. Overall prominence of the lymph nodes has increased when compared with the CT study from seven months earlier. Dictated by: Dictated on workstation # [id number]
[2019-05-22] MEDS ORDERED: MAGN200T8 PO (13:37)
[2019-05-22 13:54] VITALS: BP 92/68
--- NOTE | 2019-05-22 13:55 | NUR ---
PT REFUSED TO GIVE UA, STATES SON WILL BE HOME FROM SCHOOL SOON NEEDS TO GET HOME. AMA SIGNED BY PT
[2019-05-22] MEDS ORDERED: AZITHROMYCIN INJECTION 500 MG in NS (IVPB) 250 ML IV ONE (14:00)
[2019-05-22] MEDS ORDERED: cefTRIAXone FOR IV USE 1,000 MG in WATER (STERILE) FOR INJECTION 10 ML IV ONE (14:00)
== END 2019-05-22 13:58 | disposition left against medical advice (07) ==
LOC: EDUNIT# 10:25 → ER 10:26
DX: I47.1 Supraventricular tachycardia (principal); E83.42 Hypomagnesemia; E05.00 Thyrotoxicosis with diffuse goiter without thyrotoxic crisis or storm; C50.912 Malignant neoplasm of unspecified site of left female breast; F17.210 Nicotine dependence, cigarettes, uncomplicated; I10 Essential (primary) hypertension; Z98.51 Tubal ligation status
CPT/HCPCS: 36415; 71045; 71275; 80053; 82550; 82553; 83735; 83880; 84439; 84443; 84484; 84703; 85025; 85610; 85730; 93005; 93041; 96361; 96365

== ENCOUNTER 2019-06-26 13:31 | Outpatient (CLI) | payer MEDICAID ==
[~2019-06-26 13:31] MED LIST changes: -DILTIAZEM 25 MG/5 ML INJ (CARDIZEM) VIAL ONE; +MAGN200T8 PO; -NS IV 1000 ML 1,000 ML ONE
== END 2019-06-26 13:59 | disposition home or self-care (01) ==
LOC: SLEEP 13:31
PROVIDERS: ATTEND Nurse Practitioner Family
DX: I27.20 Pulmonary hypertension, unspecified (principal); G47.9 Sleep disorder, unspecified; R06.83 Snoring; Z72.0 Tobacco use

== ENCOUNTER → 2019-07-14 | Outpatient (CLI) | payer MEDICAID ==
[~2019-07-14] MED LIST changes: +CATHETER FLUSH 10 ML SYR IV PRN; +HEParin (CENTRAL IV FLUSH) 500 UNIT/5 ML SYR ONE
--- NOTE | 2019-07-14 18:02 | Diagnostic Imaging Report ---
INDICATION: History of pulmonary hypertension. Breast cancer. Cardiotoxic chemotherapy. TECHNIQUE: 27.5 mCi of technetium-99m was utilized for labeling of the patient's red blood cells, administered intravenously. Gated images obtained in the left and right anterior oblique, anterior and left lateral projections. Computer estimated left ventricular ejection fraction is calculated from the total count to end-systolic and end-diastolic left ventricular regions with background correction. CORRELATION STUDY: None FINDINGS: There is presence of cardiac enlargement. There is overall diminished left ventricular ejection fraction, calculated at approximately 43%. IMPRESSION: 1. Abnormal left ventricular ejection fraction of approximately 43%. Cardiac enlargement. Dictated by: Dictated on workstation # [id number]
== END ==
LOC: CARD 12:50
PROVIDERS: ATTEND Internal Medicine Hematology & Oncology
DX: Z51.11 Encounter for antineoplastic chemotherapy (principal); C50.919 Malignant neoplasm of unspecified site of unspecified female breast; I27.20 Pulmonary hypertension, unspecified
CPT/HCPCS: 78472

== ENCOUNTER 2019-07-20 09:59 | Outpatient (RCR) | payer MEDICAID ==
[2019-05-23 10:39] LABS: BASOPHILS % (AUTO) 0 % (0-10); EOSINOPHILS % (AUTO) 0 % (0-10); HEMATOCRIT 35 % (35-52); HEMOGLOBIN 11.9 G/DL (11.5-16.0); LYMPHOCYTES # (AUTO) 1.4 X 10^3 (1.0-4.0); LYMPHOCYTES % (AUTO) 29 % (12-44); MEAN CORPUSCULAR HEMOGLOBIN 31 PG (25-34); MEAN CORPUSCULAR HGB CONC 34 G/DL (32-36); MEAN CORPUSCULAR VOLUME 92 FL (80-99); MEAN PLATELET VOLUME 12.1 FL (7.4-10.4); MONOCYTES # (AUTO) 0.6 X 10^3 (0.0-1.0); MONOCYTES % (AUTO) 12 % (0-12); NEUTROPHILS # (AUTO) 2.9 X 10^3 (1.8-7.8); NEUTROPHILS % (AUTO) 59 % (42-75); PLATELET COUNT 112 10^3/uL (130-400); RED CELL DISTRIBUTION WIDTH 13.1 % (10.0-14.5); WHITE BLOOD COUNT 4.8 10^3/uL (4.3-11.0)
[2019-05-23 10:46] LABS: ALANINE AMINOTRANSFERASE 12 U/L (0-55); ALBUMIN 3.3 GM/DL (3.2-4.5); ALKALINE PHOSPHATASE 156 U/L (40-136); BILIRUBIN,TOTAL 0.3 MG/DL (0.1-1.0); BUN/CREATININE RATIO 13; CALCIUM 8.5 MG/DL (8.5-10.1); CARBON DIOXIDE 23 MMOL/L (21-32); CHLORIDE 110 MMOL/L (98-107); CREATININE SERUM 0.61 MG/DL (0.60-1.30); GFR ESTIMATED > 60; GLUCOSE 108 MG/DL (70-105); POTASSIUM 3.3 MMOL/L (3.6-5.0); SODIUM 141 MMOL/L (135-145); TOTAL PROTEIN 5.9 GM/DL (6.4-8.2)
[2019-07-11 09:42] LABS: BASOPHILS % (AUTO) 0 % (0-10); EOSINOPHILS % (AUTO) 0 % (0-10); HEMATOCRIT 36 % (35-52); LYMPHOCYTES # (AUTO) 1.3 X 10^3 (1.0-4.0); LYMPHOCYTES % (AUTO) 17 % (12-44); MEAN CORPUSCULAR HEMOGLOBIN 31 PG (25-34); MEAN CORPUSCULAR HGB CONC 33 G/DL (32-36); MEAN CORPUSCULAR VOLUME 92 FL (80-99); MEAN PLATELET VOLUME 11.4 FL (7.4-10.4); MONOCYTES # (AUTO) 0.7 X 10^3 (0.0-1.0); MONOCYTES % (AUTO) 9 % (0-12); NEUTROPHILS # (AUTO) 5.6 X 10^3 (1.8-7.8); NEUTROPHILS % (AUTO) 74 % (42-75); PLATELET COUNT 136 10^3/uL (130-400); RED CELL DISTRIBUTION WIDTH 13.1 % (10.0-14.5); WHITE BLOOD COUNT 7.7 10^3/uL (4.3-11.0)
[2019-07-11 10:02] LABS: ALANINE AMINOTRANSFERASE 12 U/L (0-55); ALBUMIN 3.7 GM/DL (3.2-4.5); ALKALINE PHOSPHATASE 152 U/L (40-136); BILIRUBIN,TOTAL 0.3 MG/DL (0.1-1.0); BUN/CREATININE RATIO 24; CALCIUM 9.2 MG/DL (8.5-10.1); CARBON DIOXIDE 22 MMOL/L (21-32); CHLORIDE 108 MMOL/L (98-107); CREATININE SERUM 0.76 MG/DL (0.60-1.30); GFR ESTIMATED > 60; GLUCOSE 120 MG/DL (70-105); POTASSIUM 3.9 MMOL/L (3.6-5.0); SODIUM 140 MMOL/L (135-145); TOTAL PROTEIN 6.3 GM/DL (6.4-8.2)
[~2019-07-20] VITALS: Ht 165.1 cm; Wt 74.4 kg
[~2019-07-20 09:59] MED LIST changes: -CATHETER FLUSH 10 ML SYR IV PRN; -HEParin (CENTRAL IV FLUSH) 500 UNIT/5 ML SYR ONE; +NS IV 1000 ML (CANCER CTR) IV SCH; +NS IV 500 ML (CANCER CENTER) 500 ML ONE; +NS IV SCH; +PERTUZUMAB 420 MG in NS (IVPB) CANCER CENTER 250 ML IV SCH; +TRASTUZUMAB IV SCH
== END 2019-07-31 | disposition home or self-care (01) ==
LOC: ONC 09:59
PROVIDERS: ATTEND Internal Medicine Hematology & Oncology
DX: Z51.11 Encounter for antineoplastic chemotherapy (principal); C50.212 Malignant neoplasm of upper-inner quadrant of left female breast; E05.00 Thyrotoxicosis with diffuse goiter without thyrotoxic crisis or storm; F17.210 Nicotine dependence, cigarettes, uncomplicated; Z17.0 Estrogen receptor positive status [ER+]; Z79.899 Other long term (current) drug therapy
CPT/HCPCS: 36591; 77290; 77295; 77300; 77307; 77334; 77336; 77417; 80053; 84443; 85025; 96413; 96417; 96523; 99204; 99213

== ENCOUNTER → 2019-08-15 | Outpatient (CLI) | payer MEDICAID ==
[~2019-08-15] VITALS: Ht 167 cm; Wt 81.0 kg
[~2019-08-15] MED LIST changes: +CATHETER FLUSH 10 ML SYR IV PRN; -NS IV 1000 ML (CANCER CTR) IV SCH; -NS IV 500 ML (CANCER CENTER) 500 ML ONE; -NS IV SCH; -PERTUZUMAB 420 MG in NS (IVPB) CANCER CENTER 250 ML IV SCH; +REGADENOSON 0.4 MG/5 ML SYR (LEXISCAN) IV ONE; -TRASTUZUMAB IV SCH
[2019-08-15 10:22] VITALS: BP 114/75
[2019-08-15 10:26] VITALS: BP 112/69
--- NOTE | 2019-08-15 16:06 | STRESS TEST ---
DATE OF SERVICE: 08/15/2019 RESTING AND POST REGADENOSON TECHNETIUM-99M TETROFOSMIN SPECT CT IMAGING ORDERING PHYSICIAN: Ildefonso Donato MD, ORA, FACP, FACC. PRIMARY PHYSICIAN: [facility]. OTHER PHYSICIAN: Dr. Soares. CLINICAL DIAGNOSES: Cardiomyopathy. Baseline images were carried out after injection of 10.18 mCi of technetium-99m Tetrofosmin. This was followed by 0.4 mg regadenoson and 31 mCi of technetium-99m Tetrofosmin for stress imaging. The electrocardiogram showed sinus rhythm at baseline. It did not change significantly with the regadenoson infusion. The patient noted mild shortness of breath following regadenoson infusion, which resolved in a few minutes. Review of images at rest and following stress does not indicate any significant perfusion defects consistent with significant myocardial ischemia or infarction. Gated images show normal global left ventricular systolic function with normal regional wall motion. Left ventricular ejection fraction is calculated to be 72%. Left ventricular end diastolic volume is 86 mL. TID is absent (1.08). CONCLUSIONS: 1. No evidence of any significant myocardial ischemia or infarction. 2. Normal regional wall motion. 3. Normal global left ventricular systolic function with a calculated ejection fraction of 72%. Job ID: [id number] DocumentID: [id number] Dictated Date: 08/15/2019 15:28:06 Drafter Assistant Date: 08/15/2019 16:06:31 Dictated By: ILDEFONSO DONATO MD, ORA, FACP, FACC,
== END ==
LOC: CARD 08:39
PROVIDERS: ATTEND Internal Medicine Cardiovascular Disease
DX: I42.0 Dilated cardiomyopathy (principal)
CPT/HCPCS: 78452; 93017

== ENCOUNTER → 2019-10-12 | Outpatient (CLI) | payer MEDICAID ==
[~2019-10-12] MED LIST changes: -REGADENOSON 0.4 MG/5 ML SYR (LEXISCAN) IV ONE
--- NOTE | 2019-10-12 13:44 | Diagnostic Imaging Report ---
INDICATION: Left breast carcinoma, status post surgery. CORRELATION is made with prior mammogram from 09/29/2018. 2-D and 3-D bilateral diagnostic mammography was performed with CAD. Both breasts remain heterogeneously dense, limiting the sensitivity of mammography. Post surgical changes in the upper left breast are noted. There is a large rounded density at the surgical site, likely representing hematoma/seroma. No other masses are seen. No suspicious microcalcifications are seen. Chest wall port has the hub in the right axilla. IMPRESSION: BI-RADS 0 Post surgical changes in the left breast with a large circumscribed density in the upper aspect of the left breast at the surgical site likely representing an area of fluid such as hematoma/seroma. Further evaluation of this area with ultrasound is recommended and will be performed today. ACR BI-RADS Category 0: Incomplete. (Needs additional imaging evaluation). Result letter will be mailed to the patient. Note: At least 10% of breast cancer is not imaged by mammography. Dictated by: Dictated on workstation # [id number]
--- NOTE | 2019-10-12 15:36 | Diagnostic Imaging Report ---
INDICATION: Breast carcinoma. CORRELATION is made with diagnostic study earlier same day. Sonographic interrogation of the upper left breast demonstrates a fluid collection at the 11 o'clock location, 10 cm from the nipple. This measures 6.3 x 3.5 x 4.2 cm. This is most consistent with a postoperative seroma. This corresponds to the large density noted mammographically. IMPRESSION: BI-RADS Category 2. A large seroma at the surgical site of the left breast at the 11 o'clock location, as described. Dictated by: Dictated on workstation # [id number]
--- NOTE | 2019-10-12 15:50 | Diagnostic Imaging Report ---
INDICATION: Breast carcinoma. EXAMINATION: Patient was administered 29.7 mCi technetium 99m pertechnetate labeled to the patient's red blood cells and gated cardiac imaging was performed utilizing 1st pass technique. FINDINGS: Left ventricular ejection fraction is calculi at 61%. IMPRESSION: Normal left ventricular ejection fraction of 61%. Dictated by: Dictated on workstation # [id number]
== END ==
LOC: RAD 12:34
PROVIDERS: ATTEND Internal Medicine Hematology & Oncology
DX: L76.34 Postprocedural seroma of skin and subcutaneous tissue following other procedure (principal); C50.812 Malignant neoplasm of overlapping sites of left female breast; I27.20 Pulmonary hypertension, unspecified
CPT/HCPCS: 76642; 77066; 78472

== ENCOUNTER 2019-10-19 12:46 | Outpatient (RCR) | payer MEDICAID ==
[2019-09-28 10:09] LABS: BASOPHILS % (AUTO) 0 % (0-10); EOSINOPHILS # (AUTO) 0.1 10^3/uL (0.0-0.3); EOSINOPHILS % (AUTO) 2 % (0-10); HEMATOCRIT 38 % (35-52); LYMPHOCYTES # (AUTO) 1.5 X 10^3 (1.0-4.0); LYMPHOCYTES % (AUTO) 18 % (12-44); MEAN CORPUSCULAR HEMOGLOBIN 30 PG (25-34); MEAN CORPUSCULAR HGB CONC 34 G/DL (32-36); MEAN CORPUSCULAR VOLUME 89 FL (80-99); MEAN PLATELET VOLUME 11.7 FL (7.4-10.4); MONOCYTES # (AUTO) 0.8 X 10^3 (0.0-1.0); MONOCYTES % (AUTO) 9 % (0-12); NEUTROPHILS # (AUTO) 5.6 X 10^3 (1.8-7.8); NEUTROPHILS % (AUTO) 70 % (42-75); PLATELET COUNT 154 10^3/uL (130-400); RED CELL DISTRIBUTION WIDTH 12.9 % (10.0-14.5)
[2019-09-28 10:32] LABS: ALANINE AMINOTRANSFERASE 11 U/L (0-55); ALBUMIN 3.8 GM/DL (3.2-4.5); ALKALINE PHOSPHATASE 120 U/L (40-136); BILIRUBIN,TOTAL 0.3 MG/DL (0.1-1.0); BUN/CREATININE RATIO 16; CALCIUM 8.7 MG/DL (8.5-10.1); CARBON DIOXIDE 24 MMOL/L (21-32); CHLORIDE 107 MMOL/L (98-107); GFR ESTIMATED > 60; GLUCOSE 121 MG/DL (70-105); POTASSIUM 3.3 MMOL/L (3.6-5.0); SODIUM 139 MMOL/L (135-145); TOTAL PROTEIN 6.3 GM/DL (6.4-8.2)
[~2019-10-19 12:46] MED LIST changes: -CATHETER FLUSH 10 ML SYR IV PRN; +HEParin (CENTRAL IV FLUSH) 500 UNIT/5 ML SYR ONE
== END 2019-11-06 | disposition home or self-care (01) ==
LOC: ONC 12:46
PROVIDERS: ATTEND Internal Medicine Hematology & Oncology
DX: Z51.11 Encounter for antineoplastic chemotherapy (principal); Z45.2 Encounter for adjustment and management of vascular access device; C50.212 Malignant neoplasm of upper-inner quadrant of left female breast; E05.00 Thyrotoxicosis with diffuse goiter without thyrotoxic crisis or storm; F17.210 Nicotine dependence, cigarettes, uncomplicated; Z17.0 Estrogen receptor positive status [ER+]; Z79.899 Other long term (current) drug therapy
CPT/HCPCS: 36591; 80053; 85025; 96523; 99213

== ENCOUNTER → 2020-03-20 | Outpatient (RCR) | payer MEDICAID ==
[2019-12-21 10:22] LABS: BASOPHILS % (AUTO) 0 % (0-10); EOSINOPHILS # (AUTO) 0.1 10^3/uL (0.0-0.3); EOSINOPHILS % (AUTO) 2 % (0-10); HEMATOCRIT 40 % (35-52); HEMOGLOBIN 13.1 G/DL (11.5-16.0); LYMPHOCYTES # (AUTO) 1.8 X 10^3 (1.0-4.0); LYMPHOCYTES % (AUTO) 23 % (12-44); MEAN CORPUSCULAR HEMOGLOBIN 29 PG (25-34); MEAN CORPUSCULAR HGB CONC 33 G/DL (32-36); MEAN CORPUSCULAR VOLUME 89 FL (80-99); MEAN PLATELET VOLUME 12.3 FL (7.4-10.4); MONOCYTES # (AUTO) 0.7 X 10^3 (0.0-1.0); MONOCYTES % (AUTO) 9 % (0-12); NEUTROPHILS % (AUTO) 65 % (42-75); PLATELET COUNT 126 10^3/uL (130-400); RED CELL DISTRIBUTION WIDTH 13.2 % (10.0-14.5); WHITE BLOOD COUNT 7.6 10^3/uL (4.3-11.0)
[2019-12-21 10:43] LABS: ALANINE AMINOTRANSFERASE 17 U/L (0-55); ALBUMIN 3.5 GM/DL (3.2-4.5); ALKALINE PHOSPHATASE 127 U/L (40-136); BILIRUBIN,TOTAL 0.3 MG/DL (0.1-1.0); BUN/CREATININE RATIO 17; CALCIUM 8.1 MG/DL (8.5-10.1); CARBON DIOXIDE 19 MMOL/L (21-32); CHLORIDE 107 MMOL/L (98-107); CREATININE SERUM 0.64 MG/DL (0.60-1.30); GFR ESTIMATED > 60; GLUCOSE 149 MG/DL (70-105); POTASSIUM 3.4 MMOL/L (3.6-5.0); SODIUM 136 MMOL/L (135-145); TOTAL PROTEIN 6.3 GM/DL (6.4-8.2)
[~2020-03-20] MED LIST changes: -HEParin (CENTRAL IV FLUSH) 500 UNIT/5 ML SYR ONE
== END | disposition home or self-care (01) ==
LOC: ONC 12-21 09:49
PROVIDERS: ATTEND Internal Medicine Hematology & Oncology
DX: Z45.2 Encounter for adjustment and management of vascular access device (principal); C50.212 Malignant neoplasm of upper-inner quadrant of left female breast; E05.00 Thyrotoxicosis with diffuse goiter without thyrotoxic crisis or storm; F17.210 Nicotine dependence, cigarettes, uncomplicated; Z17.0 Estrogen receptor positive status [ER+]; Z79.899 Other long term (current) drug therapy
CPT/HCPCS: 80053; 85025; G0463; 36591; 96523

== ENCOUNTER 2020-06-20 10:13 | Outpatient (RCR) | payer MEDICAID ==
[~2020-06-20 10:13] MED LIST changes: +PANT20TA18 PO; -PANT20TA3 PO
[2020-06-20 10:38] LABS: BASOPHILS % (AUTO) 0 % (0-10); EOSINOPHILS # (AUTO) 0.1 10^3/uL (0.0-0.3); EOSINOPHILS % (AUTO) 2 % (0-10); HEMATOCRIT 40 % (35-52); HEMOGLOBIN 13.3 g/dL (11.5-16.0); LYMPHOCYTES # (AUTO) 1.6 10^3/uL (1.0-4.0); LYMPHOCYTES % (AUTO) 29 % (12-44); MEAN CORPUSCULAR HEMOGLOBIN 30 pg (25-34); MEAN CORPUSCULAR HGB CONC 34 g/dL (32-36); MEAN CORPUSCULAR VOLUME 88 fL (80-99); MEAN PLATELET VOLUME 12.6 fL (9.0-12.2); MONOCYTES # (AUTO) 0.6 10^3/uL (0.0-1.0); MONOCYTES % (AUTO) 11 % (0-12); NEUTROPHILS # (AUTO) 3.2 10^3/uL (1.8-7.8); NEUTROPHILS % (AUTO) 58 % (42-75); PLATELET COUNT 113 10^3/uL (130-400); WHITE BLOOD COUNT 5.6 10^3/uL (4.3-11.0)
[2020-06-20 10:55] LABS: ALANINE AMINOTRANSFERASE 19 U/L (0-55); ALBUMIN 3.4 GM/DL (3.2-4.5); ALKALINE PHOSPHATASE 102 U/L (40-136); BILIRUBIN,TOTAL 0.3 MG/DL (0.1-1.0); BUN/CREATININE RATIO 19; CALCIUM 8.3 MG/DL (8.5-10.1); CARBON DIOXIDE 24 MMOL/L (21-32); CHLORIDE 105 MMOL/L (98-107); CREATININE SERUM 0.58 MG/DL (0.60-1.30); GFR ESTIMATED > 60; GLUCOSE 107 MG/DL (70-105); POTASSIUM 3.3 MMOL/L (3.6-5.0); SODIUM 138 MMOL/L (135-145); TOTAL PROTEIN 6.1 GM/DL (6.4-8.2)
== END 2020-09-12 11:05 | disposition home or self-care (01) ==
LOC: ONC 10:13
PROVIDERS: ATTEND Internal Medicine Hematology & Oncology
DX: Z51.11 Encounter for antineoplastic chemotherapy (principal); Z45.2 Encounter for adjustment and management of vascular access device; C50.212 Malignant neoplasm of upper-inner quadrant of left female breast; E05.00 Thyrotoxicosis with diffuse goiter without thyrotoxic crisis or storm; I27.20 Pulmonary hypertension, unspecified; I07.1 Rheumatic tricuspid insufficiency; F17.210 Nicotine dependence, cigarettes, uncomplicated; Z17.0 Estrogen receptor positive status [ER+]; Z79.899 Other long term (current) drug therapy; Z90.12 Acquired absence of left breast and nipple; Z90.49 Acquired absence of other specified parts of digestive tract; Z86.59 Personal history of other mental and behavioral disorders; Z78.0 Asymptomatic menopausal state; Z92.21 Personal history of antineoplastic chemotherapy
CPT/HCPCS: 80053; 85025; G0463; 36591

== ENCOUNTER → 2020-10-17 | Outpatient (CLI) | payer MEDICAID ==
--- NOTE | 2020-10-17 18:10 | Diagnostic Imaging Report ---
EXAM: Bilateral breast ultrasound INDICATION: Breast cancer The diagnostic mammogram performed prior to this study noted that the suspected postoperative seroma in the left breast seen on the prior exam of 10/12/2019 had decreased in size. The left breast ultrasound exam of 10/12/2019 did note a 6.3 x 3.5 x 4.2 cm fluid collection in the 11 o'clock position approximately 10 cm from the nipple. This was felt to be related to a postoperative seroma. On this exam, the suspected seroma is again evident. This area now measures 3.1 x 4.0 x 3.3 cm. The bilateral diagnostic mammogram performed earlier today also noted a new nodular asymmetry in the 12 o'clock position of the right breast. In the 11 o'clock position of the right breast there is a 6 x 5 x 7 mm well-circumscribed avascular hypoechoic lesion. I suspect that this is a small cyst. There may be a few internal echoes present suggesting that this is slightly complicated by infection and/or hemorrhage. The mammogram also raised the question of another nodular asymmetry in the superior aspect of the right breast in the same region. The ultrasound exam does show a 4 x 2 x 7 mm fairly well-circumscribed hypoechoic lesion in the 10:30 position. This does contain a few internal echoes but no internal vascularity. This may represent a small slightly complicated cyst. I would recommend that a short-term (6 month) follow-up mammogram and ultrasound exam of the right breast be obtained for continued evaluation. IMPRESSION: 1. The suspected postoperative seroma involving the left breast seen previously has decreased in size. 2. The small hypoechoic lesions in the right breast are most likely benign. Recommendations as above. ACR category 3 ACR BI-RADS Category 3: Probably benign findings. Result letter will be mailed to the patient. Note: At least 10% of breast cancer is not imaged by mammography. Dictated by: Dictated on workstation # [id number]
--- NOTE | 2020-10-18 11:13 | Diagnostic Imaging Report ---
Digital mammogram, bilateral diagnostic. INDICATION: Left breast cancer COMPARISON: This study was compared to the prior exams of 10/12/2019, 04/05/2019 and 09/29/2018. At this time, there are no current complaints. By history the patient has undergone a lumpectomy for carcinoma in the left breast. The previous exam did note a prominent area of increased density in the lumpectomy site. This was felt to be related to a postoperative hematoma/seroma. On this exam, that density has decreased in size somewhat. There is scar formation in this area but there is no sign of recurrent malignancy. The fibroglandular tissue in both breasts is heterogeneously dense. This does limit the sensitivity of this exam. In the interval since the previous study, a fairly well-circumscribed 6 mm asymmetry has developed in the 11 to 12 o'clock position of the right breast at posterior depth. I suspect that this is a benign process but ultrasound would be recommended to better characterize this finding. Also, just anterior and inferior to this area, there is a 6-7 mm asymmetry. The compression views of this area failed to show an underlying abnormality. The tomographic images suggest there may be a small 3 to 4 mm oval asymmetry in this region however. I would recommend that this area be evaluated by ultrasound as well. IMPRESSION: 1. The suspected hematoma/seroma involving the left breast has decreased in size. Ultrasound is pending for further study. 2. Ultrasound would also be recommended for further evaluation of the 2 areas in question involving the right breast. ACR category 0 ACR BI-RADS Category 0: Incomplete. (Needs additional imaging evaluation). Result letter will be mailed to the patient. Note: At least 10% of breast cancer is not imaged by mammography. Dictated by: Dictated on workstation # [id number]
== END ==
LOC: RAD 13:19
PROVIDERS: ATTEND Internal Medicine Hematology & Oncology
DX: C50.912 Malignant neoplasm of unspecified site of left female breast (principal)
CPT/HCPCS: 76642; 77066; G0279; 77062

== ENCOUNTER 2020-10-24 10:23 | Outpatient (RCR) | payer MEDICAID ==
[2020-10-24] MEDS ORDERED: ALTEPLASE 2 MG (CATHFLO) CANCER CENTER IV ONE (10:45)
[2020-10-24 11:59] LABS: BASOPHILS % (AUTO) 0 % (0-10); EOSINOPHILS # (AUTO) 0.1 10^3/uL (0.0-0.3); EOSINOPHILS % (AUTO) 1 % (0-10); HEMATOCRIT 43 % (35-52); HEMOGLOBIN 14.4 g/dL (11.5-16.0); LYMPHOCYTES # (AUTO) 1.6 10^3/uL (1.0-4.0); LYMPHOCYTES % (AUTO) 17 % (12-44); MEAN CORPUSCULAR HEMOGLOBIN 30 pg (25-34); MEAN CORPUSCULAR HGB CONC 33 g/dL (32-36); MEAN CORPUSCULAR VOLUME 89 fL (80-99); MEAN PLATELET VOLUME 13.1 fL (9.0-12.2); MONOCYTES # (AUTO) 0.7 10^3/uL (0.0-1.0); MONOCYTES % (AUTO) 8 % (0-12); NEUTROPHILS # (AUTO) 6.8 10^3/uL (1.8-7.8); NEUTROPHILS % (AUTO) 74 % (42-75); PLATELET COUNT 86 10^3/uL (130-400); WHITE BLOOD COUNT 9.2 10^3/uL (4.3-11.0)
[2020-10-24 12:23] LABS: ALANINE AMINOTRANSFERASE 22 U/L (0-55); ALBUMIN 3.6 GM/DL (3.2-4.5); ALKALINE PHOSPHATASE 107 U/L (40-136); BILIRUBIN,TOTAL 0.3 MG/DL (0.1-1.0); BUN/CREATININE RATIO 13; CALCIUM 8.5 MG/DL (8.5-10.1); CARBON DIOXIDE 25 MMOL/L (21-32); CHLORIDE 106 MMOL/L (98-107); GFR ESTIMATED > 60; GLUCOSE 102 MG/DL (70-105); POTASSIUM 3.8 MMOL/L (3.6-5.0); SODIUM 137 MMOL/L (135-145); TOTAL PROTEIN 6.5 GM/DL (6.4-8.2)
== END 2020-12-11 | disposition home or self-care (01) ==
LOC: ONC 10:23
PROVIDERS: ATTEND Internal Medicine Hematology & Oncology
DX: Z45.2 Encounter for adjustment and management of vascular access device (principal); C50.212 Malignant neoplasm of upper-inner quadrant of left female breast; E05.00 Thyrotoxicosis with diffuse goiter without thyrotoxic crisis or storm; I27.20 Pulmonary hypertension, unspecified; K76.0 Fatty (change of) liver, not elsewhere classified; I07.1 Rheumatic tricuspid insufficiency; F17.210 Nicotine dependence, cigarettes, uncomplicated; Z17.0 Estrogen receptor positive status [ER+]; Z79.899 Other long term (current) drug therapy; Z90.12 Acquired absence of left breast and nipple; Z90.49 Acquired absence of other specified parts of digestive tract; Z86.59 Personal history of other mental and behavioral disorders; Z78.0 Asymptomatic menopausal state; Z92.21 Personal history of antineoplastic chemotherapy
CPT/HCPCS: 36593; 80053; 84443; 85025; 96523

== ENCOUNTER 2021-04-10 10:55 | Outpatient (RCR) | payer MEDICAID ==
[2021-04-10 11:12] LABS: BASOPHILS % (AUTO) 0 % (0-10); EOSINOPHILS % (AUTO) 0 % (0-10); HEMATOCRIT 43 % (35-52); HEMOGLOBIN 14.3 g/dL (11.5-16.0); LYMPHOCYTES # (AUTO) 2.5 10^3/uL (1.0-4.0); LYMPHOCYTES % (AUTO) 32 % (12-44); MEAN CORPUSCULAR HEMOGLOBIN 31 pg (25-34); MEAN CORPUSCULAR HGB CONC 34 g/dL (32-36); MEAN CORPUSCULAR VOLUME 91 fL (80-99); MEAN PLATELET VOLUME 12.2 fL (9.0-12.2); MONOCYTES # (AUTO) 0.8 10^3/uL (0.0-1.0); MONOCYTES % (AUTO) 11 % (0-12); NEUTROPHILS # (AUTO) 4.4 10^3/uL (1.8-7.8); NEUTROPHILS % (AUTO) 57 % (42-75); PLATELET COUNT 164 10^3/uL (130-400); WHITE BLOOD COUNT 7.7 10^3/uL (4.3-11.0)
[2021-04-10 11:36] LABS: ALBUMIN 3.4 GM/DL (3.2-4.5); BILIRUBIN,TOTAL 0.3 MG/DL (0.1-1.0); CALCIUM 9.1 MG/DL (8.5-10.1); CREATININE SERUM 0.67 MG/DL (0.60-1.30); POTASSIUM 3.8 MMOL/L (3.6-5.0); TOTAL PROTEIN 6.9 GM/DL (6.4-8.2)
== END 2021-04-16 | disposition home or self-care (01) ==
LOC: ONC 10:55
PROVIDERS: ATTEND Internal Medicine Hematology & Oncology
DX: Z45.2 Encounter for adjustment and management of vascular access device (principal); C50.212 Malignant neoplasm of upper-inner quadrant of left female breast; E05.00 Thyrotoxicosis with diffuse goiter without thyrotoxic crisis or storm; I27.20 Pulmonary hypertension, unspecified; K76.0 Fatty (change of) liver, not elsewhere classified; I07.1 Rheumatic tricuspid insufficiency; F17.210 Nicotine dependence, cigarettes, uncomplicated; Z17.0 Estrogen receptor positive status [ER+]; Z79.899 Other long term (current) drug therapy; Z90.12 Acquired absence of left breast and nipple; Z90.49 Acquired absence of other specified parts of digestive tract; Z86.59 Personal history of other mental and behavioral disorders; Z78.0 Asymptomatic menopausal state; Z92.21 Personal history of antineoplastic chemotherapy
CPT/HCPCS: 36591; 80053; 85025; 96523

== ENCOUNTER → 2021-04-10 | Outpatient (CLI) | payer MEDICAID ==
--- NOTE | 2021-04-10 14:50 | Diagnostic Imaging Report ---
INDICATION: 6 month followup bilateral breast fluid collections and nodules. COMPARISON: 10/17/2020. FINDINGS: Sonographic interrogation of the 11 o'clock location of the right breast again demonstrates a small cyst measuring approximately 6 mm x 5 mm x 7 mm, unchanged when compared to the prior exam. No additional nodules in the right breast are seen. The left breast again shows a fluid collection at the 11 o'clock location measuring 4.7 x 2.6 x 2.6 cm. This compares with 3.1 x 4.0 x 3.3 cm. No new abnormality is seen. IMPRESSION: Benign findings bilaterally. The patient may return to routine annual screening mammography. ACR BI-RADS Category 2: Benign findings. Result letter will be mailed to the patient. Note: At least 10% of breast cancer is not imaged by mammography. Dictated by: Dictated on workstation # [id number]
== END ==
LOC: RAD 14:15
PROVIDERS: ATTEND Internal Medicine Hematology & Oncology
DX: R91.8 Other nonspecific abnormal finding of lung field (principal)
CPT/HCPCS: 76642

== ENCOUNTER 2021-07-03 12:03 | Outpatient (RCR) | payer MEDICAID ==
[~2021-07-03 12:03] MED LIST changes: -METH5TAB5 PO; +METH5TAB95 PO
== END 2021-09-05 | disposition home or self-care (01) ==
LOC: ONC 12:03
PROVIDERS: ATTEND Internal Medicine Hematology & Oncology
DX: Z45.2 Encounter for adjustment and management of vascular access device (principal); C50.212 Malignant neoplasm of upper-inner quadrant of left female breast; E05.00 Thyrotoxicosis with diffuse goiter without thyrotoxic crisis or storm; I27.20 Pulmonary hypertension, unspecified; K76.0 Fatty (change of) liver, not elsewhere classified; I07.1 Rheumatic tricuspid insufficiency; F17.210 Nicotine dependence, cigarettes, uncomplicated; Z17.0 Estrogen receptor positive status [ER+]; Z79.899 Other long term (current) drug therapy; Z90.12 Acquired absence of left breast and nipple; Z90.49 Acquired absence of other specified parts of digestive tract; Z86.59 Personal history of other mental and behavioral disorders; Z78.0 Asymptomatic menopausal state; Z92.21 Personal history of antineoplastic chemotherapy; Z98.890 Other specified postprocedural states; Z90.11 Acquired absence of right breast and nipple
CPT/HCPCS: 96523

== ENCOUNTER 2021-09-25 10:55 | Outpatient (RCR) | payer MEDICAID ==
[2021-09-25 11:19] LABS: HEMATOCRIT 42 % (35-52)
[2021-09-25 11:21] LABS: BASOPHILS % (AUTO) 0 % (0-10); EOSINOPHILS % (AUTO) 1 % (0-10); HEMOGLOBIN 14.2 g/dL (11.5-16.0); LYMPHOCYTES # (AUTO) 2.1 10^3/uL (1.0-4.0); LYMPHOCYTES % (AUTO) 35 % (12-44); MEAN CORPUSCULAR HEMOGLOBIN 31 pg (25-34); MEAN CORPUSCULAR HGB CONC 34 g/dL (32-36); MEAN CORPUSCULAR VOLUME 91 fL (80-99); MEAN PLATELET VOLUME 12.4 fL (9.0-12.2); MONOCYTES # (AUTO) 0.4 10^3/uL (0.0-1.0); MONOCYTES % (AUTO) 6 % (0-12); NEUTROPHILS # (AUTO) 3.5 10^3/uL (1.8-7.8); NEUTROPHILS % (AUTO) 58 % (42-75); PLATELET COUNT 121 10^3/uL (130-400)
[2021-09-25 11:44] LABS: ALBUMIN 3.5 GM/DL (3.2-4.5); BILIRUBIN,TOTAL 0.4 MG/DL (0.1-1.0); CALCIUM 8.5 MG/DL (8.5-10.1); CREATININE SERUM 0.68 MG/DL (0.60-1.30); POTASSIUM 3.9 MMOL/L (3.6-5.0); TOTAL PROTEIN 6.4 GM/DL (6.4-8.2)
== END 2021-10-06 | disposition home or self-care (01) ==
LOC: ONC 10:55
PROVIDERS: ATTEND Internal Medicine Hematology & Oncology
DX: Z45.2 Encounter for adjustment and management of vascular access device (principal); C50.212 Malignant neoplasm of upper-inner quadrant of left female breast; E05.00 Thyrotoxicosis with diffuse goiter without thyrotoxic crisis or storm; Z78.0 Asymptomatic menopausal state; Z90.49 Acquired absence of other specified parts of digestive tract
CPT/HCPCS: 36591; 80053; 85025

== ENCOUNTER → 2021-10-23 | Outpatient (CLI) | payer MEDICAID ==
[~2021-10-23] MED LIST changes: +HOLD METFORMIN - RECEIVED CONTRAST 20 ML VIAL IV SCH; +IOHEXOL 350 MG/ML 100 ML (OMNIPAQUE 350) VIAL IV ONE; +NS 100 ML (IVPB) BAG IV ONE
[2021-10-23] MEDS: CATHETER FLUSH 10 ML SYR IV PRN ×2 (08:28→08:29)
--- NOTE | 2021-10-23 09:00 | Diagnostic Imaging Report ---
PROCEDURE: CT chest with contrast, CT abdomen and pelvis with and without contrast. TECHNIQUE: Pre and post intravenous contrast axial imaging of the abdomen and pelvis and post contrast axial imaging of the chest were performed. Auto Exposure Controls were utilized during the CT exam to meet ALARA standards for radiation dose reduction. INDICATION: Breast cancer. Waking. COMPARISON: 05/22/2019 FINDINGS: CT chest: Cardiomediastinal structures show normal heart size. There is no large pericardial effusion. No pathologically enlarged or morphologically abnormal adenopathy is seen within the mediastinum, bryce, nor axilla. Lungs are clear. There is no focal consolidation, large effusion, nor pneumothorax. No suspicious pulmonary nodules or masses are identified. Soft tissue structures show interval decrease in left breast density. Left breast density now measures 2.7 x 2.3 cm, in comparison to 6.9 x 3.6 cm. Note is also made of asymmetric skin thickening of the left breast. Osseous structures show no acute abnormalities. No lytic or blastic bony lesions are seen. CT ABDOMEN: Small bowel loops are nondistended. Normal appendix is identified. The kidneys, adrenal glands, spleen, pancreas, and liver have a normal CT appearance. There is no loculated fluid collection, free fluid, nor free air. No abnormal adenopathy is seen. Osseous structures show no acute abnormalities. CT PELVIS: Urinary bladder is unopacified. No calculi are seen within urinary bladder. There is no loculated fluid collection, free fluid, nor free air within the pelvis. No abnormal adenopathy is seen. Osseous structures show no acute abnormalities. IMPRESSION: 1.. Left breast density with asymmetric skin thickening of the left breast. Findings may represent sequela of previous surgical intervention or radiation therapy. Correlation with mammogram from same day is recommended. 2. Otherwise, no evidence of recurrent or residual metastatic or malignant disease is seen within the chest, abdomen, nor pelvis. Dictated by: Dictated on workstation # [id number]
--- NOTE | 2021-10-23 13:58 | Diagnostic Imaging Report ---
Digital mammogram bilateral screening This study was compared to the prior exams of 10/17/2020, 10/12/2019, 04/05/2019, 09/29/2018. By history, the patient has had a lumpectomy on the left for carcinoma in 2019. At this time, there are no current complaints. The 2 previous exams have shown a prominent area of increased density in the left lung base in the lumpectomy site. This was felt to be related to a postoperative hematoma/seroma. That finding is again evident on this study and does seem somewhat smaller. On this exam, that area measures 2.7 x 2.9 cm as opposed to 3.0 x 4.2 cm on the prior study. The previous study also suggested 2 small nodular densities in the superior aspect of the right breast. The ultrasound exam performed on 10/17/2020 suggested that these were probably cysts. A follow-up ultrasound exam of 04/10/2021 also noted a single benign-appearing cyst in the superior aspect of the right breast in the 11 o'clock position. There were no solid lesions identified. On this exam, there is a single benign-appearing nodular density in the upper outer aspect of the right breast. This seems stable when compared to the prior exam. The other nodular density seen on the previous exam is difficult to identify with certainty. There is a small area of increased density in the lateral aspect of the right breast on the craniocaudad view. However this does not seem to persist on the tomographic images nor can it be identified with certainty on the MLO view. Consequently, I suspect it is secondary to superimposition of the fibroglandular tissue. The fibroglandular tissue in both breasts is heterogeneously dense. This does limit the sensitivity of this exam. There is no primary or secondary sign of malignancy identified. The right-sided Port-A-Cath seen previously is again evident. IMPRESSION: 1. There is no evidence of malignancy. 2. The area of increased density in the postoperative site deep in the left breast seen previously has decreased in size. Most likely this is a slowly resolving postoperative hematoma/seroma. 3. There is a small nodular density in the upper outer aspect of the right breast. This seems stable and is most likely a benign process. ACR BI-RADS Category 2: Benign findings. Result letter will be mailed to the patient. Note: At least 10% of breast cancer is not imaged by mammography. Dictated by: Dictated on workstation # [id number]
== END ==
LOC: RAD 08:00
PROVIDERS: ATTEND Internal Medicine Hematology & Oncology
DX: Z12.31 Encounter for screening mammogram for malignant neoplasm of breast (principal); Z85.3 Personal history of malignant neoplasm of breast
CPT/HCPCS: 71260; 74178; 77063; 77067

== ENCOUNTER 2021-10-30 10:42 | Outpatient (RCR) | payer MEDICAID ==
[~2021-10-30 10:42] MED LIST changes: -HOLD METFORMIN - RECEIVED CONTRAST 20 ML VIAL IV SCH; -IOHEXOL 350 MG/ML 100 ML (OMNIPAQUE 350) VIAL IV ONE; -NS 100 ML (IVPB) BAG IV ONE
[2021-10-30 11:17] LABS: BASOPHILS % (AUTO) 0 % (0-10)
[2021-10-30 11:19] LABS: EOSINOPHILS % (AUTO) 0 % (0-10); HEMATOCRIT 42 % (35-52); HEMOGLOBIN 14.3 g/dL (11.5-16.0); LYMPHOCYTES # (AUTO) 2.2 10^3/uL (1.0-4.0); LYMPHOCYTES % (AUTO) 27 % (12-44); MEAN CORPUSCULAR HEMOGLOBIN 31 pg (25-34); MEAN CORPUSCULAR HGB CONC 34 g/dL (32-36); MEAN CORPUSCULAR VOLUME 93 fL (80-99); MEAN PLATELET VOLUME 13.1 fL (9.0-12.2); MONOCYTES # (AUTO) 0.6 10^3/uL (0.0-1.0); MONOCYTES % (AUTO) 8 % (0-12); NEUTROPHILS # (AUTO) 5.2 10^3/uL (1.8-7.8); NEUTROPHILS % (AUTO) 64 % (42-75); PLATELET COUNT 70 10^3/uL (130-400); WHITE BLOOD COUNT 8.1 10^3/uL (4.3-11.0)
[2021-10-30 11:41] LABS: ALBUMIN 3.5 GM/DL (3.2-4.5); BILIRUBIN,TOTAL 0.3 MG/DL (0.1-1.0); CALCIUM 8.5 MG/DL (8.5-10.1); CREATININE SERUM 0.7 MG/DL (0.60-1.30); POTASSIUM 3.8 MMOL/L (3.6-5.0); TOTAL PROTEIN 6.1 GM/DL (6.4-8.2)
== END 2021-11-03 | disposition home or self-care (01) ==
LOC: ONC 10:42
PROVIDERS: ATTEND Internal Medicine Hematology & Oncology
DX: C50.212 Malignant neoplasm of upper-inner quadrant of left female breast (principal); C50.911 Malignant neoplasm of unspecified site of right female breast; E05.00 Thyrotoxicosis with diffuse goiter without thyrotoxic crisis or storm; F17.210 Nicotine dependence, cigarettes, uncomplicated; Z86.59 Personal history of other mental and behavioral disorders; Z78.0 Asymptomatic menopausal state; Z90.49 Acquired absence of other specified parts of digestive tract; Z45.2 Encounter for adjustment and management of vascular access device
CPT/HCPCS: 80053; 85025; G0463; 36591; 99213

== ENCOUNTER 2022-01-28 09:04 | Outpatient (RCR) | payer MEDICAID | END 2022-02-03 | disposition home or self-care (01) | LOC: ONC 09:04 | PROVIDERS: ATTEND Internal Medicine Hematology & Oncology | DX: Z45.2 Encounter for adjustment and management of vascular access device (principal); C50.212 Malignant neoplasm of upper-inner quadrant of left female breast; C50.911 Malignant neoplasm of unspecified site of right female breast; E05.00 Thyrotoxicosis with diffuse goiter without thyrotoxic crisis or storm; F17.210 Nicotine dependence, cigarettes, uncomplicated; Z86.59 Personal history of other mental and behavioral disorders; Z78.0 Asymptomatic menopausal state; Z90.49 Acquired absence of other specified parts of digestive tract | CPT/HCPCS: 96523 ==

== ENCOUNTER 2022-05-04 09:24 | Outpatient (RCR) | payer MEDICAID ==
[2022-05-04 10:22] LABS: BASOPHILS % (AUTO) 0 % (0-10); EOSINOPHILS % (AUTO) 0 % (0-10); HEMATOCRIT 45 % (35-52); HEMOGLOBIN 15.2 g/dL (11.5-16.0); LYMPHOCYTES % (AUTO) 34 % (12-44); MEAN CORPUSCULAR HEMOGLOBIN 30 pg (25-34); MEAN CORPUSCULAR HGB CONC 34 g/dL (32-36); MEAN CORPUSCULAR VOLUME 88 fL (80-99); MEAN PLATELET VOLUME 12.9 fL (9.0-12.2); MONOCYTES # (AUTO) 0.7 10^3/uL (0.0-1.0); MONOCYTES % (AUTO) 7 % (0-12); NEUTROPHILS % (AUTO) 57 % (42-75); PLATELET COUNT 146 10^3/uL (130-400); WHITE BLOOD COUNT 8.7 10^3/uL (4.3-11.0)
[2022-05-04 10:35] LABS: ALBUMIN 3.5 GM/DL (3.2-4.5); BILIRUBIN,TOTAL 0.3 MG/DL (0.1-1.0); CALCIUM 8.7 MG/DL (8.5-10.1); CREATININE SERUM 0.71 MG/DL (0.60-1.30); POTASSIUM 3.8 MMOL/L (3.6-5.0); TOTAL PROTEIN 6.5 GM/DL (6.4-8.2)
== END 2022-05-06 | disposition home or self-care (01) ==
LOC: ONC 09:24
PROVIDERS: ATTEND Internal Medicine Hematology & Oncology
DX: Z45.2 Encounter for adjustment and management of vascular access device (principal); C50.212 Malignant neoplasm of upper-inner quadrant of left female breast; C50.911 Malignant neoplasm of unspecified site of right female breast; E05.00 Thyrotoxicosis with diffuse goiter without thyrotoxic crisis or storm; F17.210 Nicotine dependence, cigarettes, uncomplicated; Z86.59 Personal history of other mental and behavioral disorders; Z78.0 Asymptomatic menopausal state; Z90.49 Acquired absence of other specified parts of digestive tract
CPT/HCPCS: 80053; 85025; G0463; 36415; 36591

== ENCOUNTER 2022-08-03 09:33 | Outpatient (RCR) | payer MEDICAID | END 2022-08-05 | disposition home or self-care (01) | LOC: ONC 09:33 | PROVIDERS: ATTEND Internal Medicine Hematology & Oncology | DX: Z45.2 Encounter for adjustment and management of vascular access device (principal); C50.212 Malignant neoplasm of upper-inner quadrant of left female breast; C50.911 Malignant neoplasm of unspecified site of right female breast; E05.00 Thyrotoxicosis with diffuse goiter without thyrotoxic crisis or storm; F17.210 Nicotine dependence, cigarettes, uncomplicated; Z86.59 Personal history of other mental and behavioral disorders; Z78.0 Asymptomatic menopausal state; Z90.49 Acquired absence of other specified parts of digestive tract | CPT/HCPCS: 96523 ==

== ENCOUNTER → 2022-10-26 | Outpatient (CLI) | payer MEDICAID ==
--- NOTE | 2022-10-26 14:16 | Diagnostic Imaging Report ---
3-D bilateral screening mammogram with CAD. This study was compared to the prior exams of 10/23/2021, 10/17/2020 and 10/12/2019. The patient did undergo a lumpectomy for carcinoma on the left in 2019. At this time there are no current complaints. On the prior exam there was an area of increased density in the lumpectomy site. That finding is again evident and does not appear to have changed significantly. This may be secondary to a postoperative hematoma/seroma. A few benign-appearing calcifications are also again seen in this region. The fibroglandular tissue in both breasts is heterogeneously dense. This does limit the sensitivity of this exam. When compared to the prior study there has been no adverse change. The small benign-appearing nodular asymmetry in the superior aspect of the right breast seen previously has decreased in size. There is no primary or secondary sign of malignancy noted. Impression: 1. There are postoperative changes in the left lumpectomy site. There is no sign of recurrent malignancy. 2. There is no other evidence for neoplastic disease. ACR BI-RADS Category 1: Negative. Result letter will be mailed to the patient. Note: At least 10% of breast cancer is not imaged by mammography. Dictated by: Dictated on workstation # [id number]
== END ==
LOC: RAD 08:09
PROVIDERS: ATTEND Internal Medicine Hematology & Oncology
DX: Z12.31 Encounter for screening mammogram for malignant neoplasm of breast (principal); Z90.12 Acquired absence of left breast and nipple; Z98.890 Other specified postprocedural states; Z85.3 Personal history of malignant neoplasm of breast
CPT/HCPCS: 77063; 77067

== ENCOUNTER 2022-11-02 09:15 | Outpatient (RCR) | payer MEDICAID ==
[2022-11-02 09:43] LABS: BASOPHILS % (AUTO) 0 % (0-10); EOSINOPHILS # (AUTO) 0.2 10^3/uL (0.0-0.3); EOSINOPHILS % (AUTO) 2 % (0-10); HEMATOCRIT 44 % (35-52); HEMOGLOBIN 14.7 g/dL (11.5-16.0); LYMPHOCYTES % (AUTO) 38 % (12-44); MEAN CORPUSCULAR HEMOGLOBIN 30 pg (25-34); MEAN CORPUSCULAR HGB CONC 34 g/dL (32-36); MEAN CORPUSCULAR VOLUME 88 fL (80-99); MEAN PLATELET VOLUME 13.1 fL (9.0-12.2); MONOCYTES # (AUTO) 0.6 10^3/uL (0.0-1.0); MONOCYTES % (AUTO) 8 % (0-12); NEUTROPHILS # (AUTO) 4.2 10^3/uL (1.8-7.8); NEUTROPHILS % (AUTO) 52 % (42-75); PLATELET COUNT 135 10^3/uL (130-400); WHITE BLOOD COUNT 8.1 10^3/uL (4.3-11.0)
[2022-11-02 09:57] LABS: ALBUMIN 3.6 GM/DL (3.2-4.5); BILIRUBIN,TOTAL 0.3 MG/DL (0.1-1.0); CALCIUM 8.7 MG/DL (8.5-10.1); CREATININE SERUM 0.75 MG/DL (0.60-1.30); POTASSIUM 3.3 MMOL/L (3.6-5.0); TOTAL PROTEIN 6.8 GM/DL (6.4-8.2)
== END 2022-11-03 | disposition home or self-care (01) ==
LOC: ONC 09:15
PROVIDERS: ATTEND Internal Medicine Hematology & Oncology
DX: Z45.2 Encounter for adjustment and management of vascular access device (principal); C50.212 Malignant neoplasm of upper-inner quadrant of left female breast; C50.911 Malignant neoplasm of unspecified site of right female breast; E05.00 Thyrotoxicosis with diffuse goiter without thyrotoxic crisis or storm; F17.210 Nicotine dependence, cigarettes, uncomplicated; Z86.59 Personal history of other mental and behavioral disorders; Z78.0 Asymptomatic menopausal state; Z90.49 Acquired absence of other specified parts of digestive tract
CPT/HCPCS: 36591; 80053; 85025

== ENCOUNTER 2023-01-25 10:03 | Outpatient (RCR) | payer MEDICAID | END 2023-02-03 | disposition home or self-care (01) | LOC: ONC 10:03 | PROVIDERS: ATTEND Internal Medicine Hematology & Oncology | DX: Z45.2 Encounter for adjustment and management of vascular access device (principal); C50.212 Malignant neoplasm of upper-inner quadrant of left female breast; C50.911 Malignant neoplasm of unspecified site of right female breast; E05.00 Thyrotoxicosis with diffuse goiter without thyrotoxic crisis or storm; F17.210 Nicotine dependence, cigarettes, uncomplicated; Z86.59 Personal history of other mental and behavioral disorders; Z78.0 Asymptomatic menopausal state; Z90.49 Acquired absence of other specified parts of digestive tract | CPT/HCPCS: 96523 ==

== ENCOUNTER 2023-04-26 08:55 | Outpatient (RCR) | payer MEDICAID ==
[2023-04-26 09:12] LABS: HEMOGLOBIN 14.4 g/dL (11.5-16.0); MONOCYTES % (AUTO) 7 % (0-12)
[2023-04-26 09:14] LABS: BASOPHILS % (AUTO) 0 % (0-10); EOSINOPHILS # (AUTO) 0.3 10^3/uL (0.0-0.3); EOSINOPHILS % (AUTO) 3 % (0-10); HEMATOCRIT 44 % (35-52); LYMPHOCYTES # (AUTO) 2.7 10^3/uL (1.0-4.0); LYMPHOCYTES % (AUTO) 30 % (12-44); MEAN CORPUSCULAR HEMOGLOBIN 30 pg (25-34); MEAN CORPUSCULAR HGB CONC 33 g/dL (32-36); MEAN CORPUSCULAR VOLUME 91 fL (80-99); MONOCYTES # (AUTO) 0.7 10^3/uL (0.0-1.0); NEUTROPHILS # (AUTO) 5.4 10^3/uL (1.8-7.8); NEUTROPHILS % (AUTO) 59 % (42-75); PLATELET COUNT 132 10^3/uL (130-400); WHITE BLOOD COUNT 9.2 10^3/uL (4.3-11.0)
[2023-04-26 09:34] LABS: ALBUMIN 3.8 GM/DL (3.2-4.5); BILIRUBIN,TOTAL 0.4 MG/DL (0.1-1.0); CALCIUM 8.6 MG/DL (8.5-10.1); CREATININE SERUM 0.71 MG/DL (0.60-1.30); POTASSIUM 3.7 MMOL/L (3.6-5.0); TOTAL PROTEIN 6.7 GM/DL (6.4-8.2)
== END 2023-05-06 | disposition home or self-care (01) ==
LOC: ONC 08:55
PROVIDERS: ATTEND Internal Medicine Hematology & Oncology
DX: Z45.2 Encounter for adjustment and management of vascular access device (principal); C50.212 Malignant neoplasm of upper-inner quadrant of left female breast; C50.911 Malignant neoplasm of unspecified site of right female breast; E05.00 Thyrotoxicosis with diffuse goiter without thyrotoxic crisis or storm; F17.210 Nicotine dependence, cigarettes, uncomplicated; Z86.59 Personal history of other mental and behavioral disorders; Z78.0 Asymptomatic menopausal state; Z90.49 Acquired absence of other specified parts of digestive tract
CPT/HCPCS: 80053; 85025; G0463; 36591; 99214

== ENCOUNTER 2023-07-19 12:38 | Outpatient (RCR) | payer MEDICAID | END 2023-08-05 | disposition home or self-care (01) | LOC: ONC 12:38 | PROVIDERS: ATTEND Internal Medicine Hematology & Oncology | DX: C50.212 Malignant neoplasm of upper-inner quadrant of left female breast (principal); C50.911 Malignant neoplasm of unspecified site of right female breast; E05.00 Thyrotoxicosis with diffuse goiter without thyrotoxic crisis or storm; F17.210 Nicotine dependence, cigarettes, uncomplicated; Z86.59 Personal history of other mental and behavioral disorders; Z78.0 Asymptomatic menopausal state; Z90.49 Acquired absence of other specified parts of digestive tract ==